=== PATIENT | male | born 1940 | race Caucasian/White ===

== ENCOUNTER 2020-03-20 15:15 | Inpatient (IN) | payer MEDICAID, SELFPAY ==
[~2020-03-20] VITALS: Ht 165.1 cm; Wt 49.9 kg
[2020-03-20] MEDS: NACL 0.9% 1,000 ML IV SCH (02:50)
--- NOTE | 2020-03-20 15:15 | NUR ---
Patient BIBA ALS, transferred to bed 7. RN evaluating patient at bedside.
--- NOTE | 2020-03-20 15:16 | NUR ---
Dr. Wei is evaluating the patient at bedside.
[2020-03-20 15:17] VITALS: BP 131/72
[2020-03-20] MEDS ORDERED: AZITHROMYCIN 1,000 MG in DEXTROSE 5% 500 ML IV ONE (15:20)
[2020-03-20] MEDS ORDERED: DEXAMETHASONE 10 MG/ML VIAL IVP ONE (15:20)
[2020-03-20] MEDS ORDERED: ZINC SULF 220 MG CAP PO ONE (15:20)
[2020-03-20 15:47] LABS: BASOPHILS % (AUTO) 0.3 % (0.0-2.0); EOSINOPHILS # (AUTO) 0.1 K/uL (0-0.4); EOSINOPHILS % (AUTO) 0.5 % (0.0-4.0); HEMATOCRIT 38.8 % (36-52); LYMPHOCYTES # (AUTO) 1.1 K/uL (2.0-11.5); LYMPHOCYTES % (AUTO) 8.8 % (20.5-51.1); MEAN CORPUSCULAR HEMOGLOBIN 28 pg (27-31); MEAN CORPUSCULAR HGB CONC 33 g/dL (33-37); MEAN CORPUSCULAR VOLUME 85.2 fL (80-94); MONOCYTES # (AUTO) 0.6 K/uL (0.8-1.0); NEUTROPHILS # (AUTO) 10.5 K/uL (1.8-7.7); NEUTROPHILS % (AUTO) 85.4 % (42.2-75.2); PLATELET COUNT (AUTO) 504 K/uL (140-450); RED BLOOD CELL COUNT(AUTO) 4.56 MIL/uL (4.20-6.10); RED CELL DISTRIBUTION WIDTH 14.6 % (11.6-13.7); WHITE BLOOD COUNT (AUTO) 12.3 K/uL (4.8-10.8)
[2020-03-20] MEDS ORDERED: cefTRIAXone 1,000 MG VIAL ONE (16:06)
[2020-03-20 16:10] LABS: ALBUMIN 2.6 g/dL (3.4-5.0); ANION GAP 16.7 (8-16); CARBON DIOXIDE 25.9 mmol/L (21-32); POTASSIUM 4.6 mmol/L (3.5-5.1); TOTAL BILIRUBIN 0.6 mg/dL (0.0-1.0)
[2020-03-20 16:18] LABS: D-DIMER > 5000 ng/ml (0-400)
[2020-03-20 16:24] LABS: RSV NEGATIVE (NEGATIVE)
[2020-03-20] MEDS ORDERED: ONDANSETRON 4 MG/2 ML VIAL IVP PRN (16:50)
[2020-03-20] MEDS ORDERED: AZITHROMYCIN 250 MG TAB PO ONE (16:50)
[2020-03-20] MEDS ORDERED: ALBUTEROL HFA MDI 90 MCG/ACTUATION 8 GM INH PRN (16:50)
[2020-03-20] MEDS ORDERED: MORPHINE SULFATE 2 MG/ML SYR IVP PRN (16:50)
[2020-03-20] MEDS ORDERED: DOCUSATE SODIUM 100 MG GELCAP PO PRN (16:50)
[2020-03-20 16:51] LABS: FIBRINOGEN 456 mg/dL (200-400); PROTHROMBIN TIME 11.3 secs (10.8-13.4)
[2020-03-20 16:53] LABS: LACTATE DEHYDROGENASE 410 U/L (85-227)
[2020-03-20 16:54] LABS: C-REACTIVE PROTEIN QUANT 12.7 mg/dL (0.0-0.9)
[2020-03-20 17:31] LABS: CHOL/HDL RATIO 2.6 (1-4.5); FREE T4 (FREE THYROXINE) 1.84 ng/dL (0.76-1.46); MAGNESIUM 2.3 mg/dL (1.8-2.4); PHOSPHORUS 4.1 mg/dL (2.5-4.9); THYROID STIMULATING HORMONE 0.27 uIU/mL (0.34-3.74)
[2020-03-20] MEDS ORDERED: AZITHROMYCIN 500 MG INJ VIAL IV ONE (18:31)
[2020-03-20 19:03] VITALS: BP 167/74
--- NOTE | 2020-03-20 19:10 | NUR ---
REPORT RECEIVED FROM NEIL MCKINLEY. TRANSFER OF CARE AT THIS TIME.
--- NOTE | 2020-03-20 20:30 | NUR ---
URINE COLLECTED AND WALKED TO LAB.
--- NOTE | 2020-03-20 20:45 | NUR ---
PT'S DIAPER CHANGED. PT HAD A BM, SOFT BROWN STOOL. PROVIDED WITH NEW SHEETS. ALL PT'S NEEDS MET AT THIS TIME. PT IN STABLE CONDITION. ALL NEEDS MET AT THIS TIME. EQUAL RISE AND FALL OF CHEST WALL. PT IN STABLE CONDITION. BED LOCKED IN LOWEST POSITION, SIDE RAILS X2.
[2020-03-20 20:54] LABS: APPEARANCE,URINE CLEAR (CLEAR); BILIRUBIN,URINE NEGATIVE (NEGATIVE); BLOOD, URINE TRACE-I (NEGATIVE); COLOR,URINE YELLOW (YELLOW); LEUKOCYTE ESTERASE ,URINE NEGATIVE (NEGATIVE); NITRITE, URINE NEGATIVE (NEGATIVE); PH,URINE 6.5 (5.0-9.0); UGLUCOSE NEGATIVE (NEGATIVE)
[2020-03-20 21:07] LABS: BARBITURATE, URINE NEGATIVE ng/ml (NEG <=200); BENZODIAZEPINE, URINE NEGATIVE ng/mL (NEG <=200); CANNABINOID, URINE NEGATIVE ng/mL (NEG <=50); COCAINE, URINE NEGATIVE ng/mL (NEG <=300); OPIATE, URINE POSITIVE ng/mL (NEG <=2000); PHENCYCLIDINE SCREEN,URINE NEGATIVE ng/mL (NEG <=25)
[2020-03-20 21:10] VITALS: BP 144/71
[2020-03-20 21:14] LABS: RBC,URINE 0-5 /HPF (0-5); WBC,URINE 0-5 /HPF (0-5)
[2020-03-20] MEDS: ZINC SULF 220 MG CAP PO SCH (21:34)
--- NOTE | 2020-03-20 22:30 | NUR ---
PT IS RESTING. EQUAL RISE AND FALL OF CHEST WALL. PT IN STABLE CONDITION. ALL NEEDS MET AT THIS TIME. EQUAL RISE AND FALL OF CHEST WALL. BED LOCKED IN LOWEST POSITION, SIDE RAILS X2.
[2020-03-21 00:45] VITALS: BP 153/75
--- NOTE | 2020-03-21 01:30 | NUR ---
PT'S DIAPER CHANGED. ONLY URINE NOTED. ALL PT'S NEEDS MET AT THIS TIME. PT IS IN STABLE CONDITION. BED LOCKED IN LOWEST POSITION, SIDE RAILS X2.
[2020-03-21] MEDS ORDERED: PIPERACILLIN/TAZOBACTAM 3.375 GM VIAL IV ONE ×2 (01:39→06:10)
[2020-03-21] MEDS: PIPERACILLIN/TAZOBACTAM 3.375 GM in DEXTROSE 5% 50 ML IV SCH ×4 (01:40→22:37)
[2020-03-21] MEDS: LORazepam 2 MG/ML VIAL IM/IVP PRN (02:14)
--- NOTE | 2020-03-21 02:25 | NUR ---
PT REPORTED FEELING ANXIOUS. PRN ATIVAN GIVEN. PT IS CURRENTLY SLEEPING. EQUAL RISE AND FALL OF CHEST WALL. SIDE RAILS X2, BED LOCKED IN LOWEST POSITION.
--- NOTE | 2020-03-21 04:16 | NUR ---
PT IS SLEEPING. EQUAL RISE AND FALL OF CHEST WALL. PT IN STABLE CONDITION. BED LOCKED IN LOWEST POSITION, SIDE RAILS X2.
[2020-03-21 05:10] VITALS: BP 123/68
--- NOTE | 2020-03-21 06:06 | NUR ---
PT IS SLEEPING. EQUAL RISE AND FALL OF CHEST WALL. PT IN STABLE CONDITION. BED LOCKED IN LOWEST POSITION, SIDE RAILS X2.
--- NOTE | 2020-03-21 07:36 | NUR ---
REPORT GIVEN TO NEIL BROWN. TRANSFER OF CARE AT THIS TIME.
--- NOTE | 2020-03-21 08:10 | NUR ---
Patient will be admitted to care of Dr Davis . Admited to tele. Will go to room 112B. Belongings list completed. Report to Norma TREJO.
--- NOTE | 2020-03-21 08:15 | NUR ---
RECEIVED REPORT FROM ER NURSE. PATIENT IS AOX2. RESPIRATIONS EVEN AND UNLABORED. ON BIPAP 100%. O2 SATURATION AT 96%. S1 AND S2 HEARD. BILATERAL PULSE 2+ ON UPPER AND LOWER EXTREMITY. SKIN IS INTACT, WARM, AND DRY. IV SITE ON LAC 22G SALINE LOCK. ABDOMEN IS FLAT AND SOFT. ACTIVE IN ALL FOUR QUADRANTS. INCONTINENT. PLAN OF CARE WAS DISCUSSED. SAFETY AND DROPLET PRECAUTIONS IN PLACE. BED IN LOW POSITION AND CALL LIGHTS WITHIN REACH. WILL CONTINUE TO MONITOR.
--- NOTE | 2020-03-21 08:25 | NUR ---
PT TAKEN TO FLOOR AT THIS TIME
[2020-03-21 08:35] VITALS: BP 136/57
--- NOTE | 2020-03-21 08:35 | NUR ---
RECEIVED PT FROM ER NURSE, PT IS ON BIPAP, ON BEDREST AND AN IV LINE NOTED ON THE LAC G. 22, ON SALINE LOCK. WILL CONTINUE TO MONITOR PT.
[2020-03-21] MEDS: ASCORBIC ACID 500 MG TAB PO SCH (09:53)
[2020-03-21] MEDS: AZITHROMYCIN 250 MG TAB PO SCH (09:53)
[2020-03-21] MEDS: ZINC SULF 220 MG CAP PO SCH ×2 (09:53→22:35)
[2020-03-21] MEDS: VITAMIN D 400 IU TAB PO SCH (09:54)
[2020-03-21] MEDS: ENOXAPARIN 40 MG/0.4 ML SYR SUBQ SCH (10:03)
--- NOTE | 2020-03-21 10:05 | NUR ---
DECADRON AND AZITHROMYCIN WERE NON-ADMINISTERED IN PT EMAR. MEDICATIONS WERE GIVEN PREVIOUS DAY IN EMAR. Addendum: 03/21/20 at 1054 by Luis Fernando Mcmahan RN RN GIVEN PREVIOUS DAY IN ER*
[2020-03-21] MEDS: NACL 0.9% 1,000 ML IV SCH ×2 (10:09→12:50)
--- NOTE | 2020-03-21 11:09 | NUR ---
SPOKE TO DR. THORPE REGARDING PATIENT STATUS. NEW ORDERS ARE REQUESTED. JUST AWAITING CODE STATUS PER MD.
[2020-03-21 12:00] VITALS: BP 154/80
--- NOTE | 2020-03-21 12:05 | NUR ---
REMOVED PATIENT FROM BIPAP TO MASK PLACED ON SUPPLEMENTAL OXYGEN AT 15 LPM VIA HIGH FLOW BUBBLE HUMIDIFIER DRYWALL STRIPPER HELPER TO MONITOR
--- NOTE | 2020-03-21 12:08 | NUR ---
TOLERATING HIGH FLOW BUBBLE HUMIDIFIER WELL WITHOUT ADVERSE REACTIONS NOTED GOOD CHEST RISE SATURATION 94% HR 96 RR 20
--- NOTE | 2020-03-21 15:30 | NUR ---
PT COMPLAINED OF WET DIAPER. CHANGED PATIENT. PATIENT IS NOW CLEAN, DRY, AND COMFORTABLE
[2020-03-21 16:00] VITALS: BP 127/70
[2020-03-21] MEDS: HYDROcodone/APAP 5/325 MG 1 TAB TAB PO PRN (17:23)
--- NOTE | 2020-03-21 17:23 | NUR ---
PT COMPLAINED OF 6/10 BODY ACHES. ADMINISTERED NORCO PO PER ORDERED. WILL CONTINUE TO MONITOR.
[2020-03-21 18:35] LABS: BASOPHILS % (AUTO) 0.5 % (0.0-2.0); HEMATOCRIT 36.8 % (36-52); HEMOGLOBIN 12.3 g/dL (12.0-18.0); LYMPHOCYTES # (AUTO) 0.2 K/uL (2.0-11.5); LYMPHOCYTES % (AUTO) 2.9 % (20.5-51.1); MEAN CORPUSCULAR HEMOGLOBIN 28 pg (27-31); MEAN CORPUSCULAR HGB CONC 33 g/dL (33-37); MEAN CORPUSCULAR VOLUME 84.6 fL (80-94); MONOCYTES # (AUTO) 0.2 K/uL (0.8-1.0); MONOCYTES % (AUTO) 1.9 % (1.7-9.3); NEUTROPHILS # (AUTO) 7.6 K/uL (1.8-7.7); NEUTROPHILS % (AUTO) 94.7 % (42.2-75.2); PLATELET COUNT (AUTO) 336 K/uL (140-450); RED BLOOD CELL COUNT(AUTO) 4.35 MIL/uL (4.20-6.10); RED CELL DISTRIBUTION WIDTH 14.9 % (11.6-13.7); WHITE BLOOD COUNT (AUTO) 8.1 K/uL (4.8-10.8)
[2020-03-21 18:52] LABS: ALBUMIN 2.3 g/dL (3.4-5.0); ANION GAP 14.5 (8-16); ASPARTATE AMINOTRANSFERASE 33 U/L (15-37); CHLORIDE 99 mmol/L (98-107); CREATININE 0.8 mg/dL (0.6-1.3); GLUCOSE 149 mg/dL (74-106); MAGNESIUM 2.3 mg/dL (1.8-2.4); POTASSIUM 4.5 mmol/L (3.5-5.1); SODIUM SERUM 136 mmol/L (136-145); TOTAL BILIRUBIN 0.5 mg/dL (0.0-1.0); UREA NITROGEN, BLOOD 29 mg/dL (7-18)
--- NOTE | 2020-03-21 19:46 | NUR ---
ENDORSED PT TO REGISTRY NURSE FOR CONTINUITY OF CARE.
[2020-03-21 20:00] VITALS: BP 151/101
[2020-03-21] MEDS: CHLORHEXADINE GLUC 2% CLOTH TP SCH (21:10)
[2020-03-21] MEDS: ZOLPIDEM 5 MG TAB PO PRN (22:35)
[2020-03-21] MEDS: MUPIROCIN CA NASAL 2% 1GM TUBE NS SCH (22:35)
[2020-03-22] VITALS: BP 156/79
[2020-03-22] MEDS: HYDROcodone/APAP 5/325 MG 1 TAB TAB PO PRN (02:11)
[2020-03-22 04:00] VITALS: BP 180/91
[2020-03-22] MEDS: PIPERACILLIN/TAZOBACTAM 3.375 GM in DEXTROSE 5% 50 ML IV SCH ×3 (04:23→22:09)
[2020-03-22] MEDS: NACL 0.9% 1,000 ML IV SCH ×3 (05:00→18:50)
--- NOTE | 2020-03-22 07:18 | NUR ---
EOS TELE NOTE [id number] HR 87 SR w BBB 03.22.2033 HR 69 SR w BBB QRS 0.12 [id number] SR QRS 0.12
[2020-03-22 08:00] VITALS: BP 162/75
--- NOTE | 2020-03-22 08:10 | NUR ---
PATIENT HAS BEEN SCREENED AND CATEGORIZED MODERATE NUTRITION RISK. PATIENT WILL BE SEEN WITHIN 3-5 DAYS OF ADMISSION. 03/23/20 03/25/[address]
[2020-03-22] MEDS ORDERED: FAMOTIDINE 20 MG TAB PO SCH (09:00)
[2020-03-22] MEDS ORDERED: FAMOTIDINE 20 MG TAB PO PRN (09:10)
[2020-03-22] MEDS: VITAMIN D 400 IU TAB PO SCH (09:15)
[2020-03-22] MEDS: ASCORBIC ACID 500 MG TAB PO SCH (09:15)
[2020-03-22] MEDS: AZITHROMYCIN 250 MG TAB PO SCH (09:16)
[2020-03-22] MEDS: ZINC SULF 220 MG CAP PO SCH ×2 (09:16→22:08)
[2020-03-22] MEDS: ENOXAPARIN 40 MG/0.4 ML SYR SUBQ SCH (09:17)
[2020-03-22 09:25] LABS: BASOPHILS % (AUTO) 0.5 % (0.0-2.0); EOSINOPHILS % (AUTO) 0.1 % (0.0-4.0); HEMATOCRIT 36.6 % (36-52); HEMOGLOBIN 12.4 g/dL (12.0-18.0); LYMPHOCYTES # (AUTO) 0.6 K/uL (2.0-11.5); LYMPHOCYTES % (AUTO) 7.3 % (20.5-51.1); MEAN CORPUSCULAR HEMOGLOBIN 29 pg (27-31); MEAN CORPUSCULAR HGB CONC 34 g/dL (33-37); MEAN CORPUSCULAR VOLUME 84.7 fL (80-94); MONOCYTES # (AUTO) 0.7 K/uL (0.8-1.0); MONOCYTES % (AUTO) 8.3 % (1.7-9.3); NEUTROPHILS # (AUTO) 7.2 K/uL (1.8-7.7); NEUTROPHILS % (AUTO) 83.8 % (42.2-75.2); PLATELET COUNT (AUTO) 381 K/uL (140-450); RED BLOOD CELL COUNT(AUTO) 4.33 MIL/uL (4.20-6.10); RED CELL DISTRIBUTION WIDTH 14.9 % (11.6-13.7); WHITE BLOOD COUNT (AUTO) 8.5 K/uL (4.8-10.8)
--- NOTE | 2020-03-22 09:25 | NUR ---
SCHEDULED MORNING MEDICATIONS GIVEN. EDUCATION PROVIDED. PATIENT TOLERATED WELL. O2 SAT 93% WITH 15L VIA NC. HR 93. SAFETY MEASURES IN PLACE, WILL CONTINUE TO MONITOR.
[2020-03-22 10:42] LABS: ALBUMIN 2.4 g/dL (3.4-5.0); ANION GAP 11.9 (8-16); ASPARTATE AMINOTRANSFERASE 32 U/L (15-37); CARBON DIOXIDE 28.3 mmol/L (21-32); CHLORIDE 101 mmol/L (98-107); GLUCOSE 96 mg/dL (74-106); MAGNESIUM 2.5 mg/dL (1.8-2.4); PHOSPHORUS 3.8 mg/dL (2.5-4.9); POTASSIUM 4.2 mmol/L (3.5-5.1); SODIUM SERUM 137 mmol/L (136-145); TOTAL BILIRUBIN 0.5 mg/dL (0.0-1.0); UREA NITROGEN, BLOOD 30 mg/dL (7-18)
[2020-03-22 12:00] VITALS: BP 165/71
[2020-03-22 12:44] LABS: LACTATE DEHYDROGENASE 247 U/L (85-227)
--- NOTE | 2020-03-22 13:50 | NUR ---
IV ZOSYN GIVEN VIA IVPB. PATIENT ASLEEP IN BED WITHIN SUPINE POSITION. RESPIRATORY EVEN AND UNLABORED. NO ACUTE DISTRESS NOTED. SAFETY MEASURES IN PLACE, WILL CONTINUE TO MONITOR.
[2020-03-22 16:00] VITALS: BP 155/69
--- NOTE | 2020-03-22 17:03 | NUR ---
SCHEDULED IV ROCEPHIN GIVEN VIA IVPB. PATIENT ASLEEP WITH NO ACUTE DISTRESS NOTED. WILL CONTINUE TO MONITOR.
--- NOTE | 2020-03-22 19:10 | NUR ---
RECEIVED BEDSIDE REPORT FROM DAY SHIFT NURSE FOR CONTINUITY OF CARE. PT IS AWAKE AND ALERT. LAYING IN SEMI FOWLERS POSITION. ON 15L O2 NC WITH HUMIDIFIER. BREATHING IS UNLABORED. PT IS ON TELE MONITORING. SKIN IS WARM, DRY, AND INTACT. IV IS IN THE LEFT AC 20 GAUGE RUNNING NS AT 100 ML PER HOUR PER ORDER. PLAN OF CARE DISCUSSED. PT IS STABLE AT THIS TIME. DROPLET PRECAUTION IN PLACE FOR COVID POSITIVE.
--- NOTE | 2020-03-22 19:30 | NUR ---
ENDORSED PATIENT TO MASTER MECHANIC RN FOR CONTINUITY OF CARE. PATIENT IN STABLE CONDITION.
[2020-03-22 20:00] VITALS: BP 187/88
--- NOTE | 2020-03-22 21:30 | NUR ---
PT WAS CHANGED AND REPOSITIONED. PT VOIDED IN DIAPER. NO DISTRESS NOTED AT THIS TIME. BREATHING IS UNLABORED. IV FLUIDS ARE PATENT AND INFUSING.
[2020-03-22] MEDS: MUPIROCIN CA NASAL 2% 1GM TUBE NS SCH (22:08)
[2020-03-22] MEDS: CHLORHEXADINE GLUC 2% CLOTH TP SCH (22:09)
--- NOTE | 2020-03-22 22:40 | NUR ---
CONTACTED DR. BLAIR TO INFORM HIM ABOUT PT'S BP OF 187/89 AND HR OF 74. I CHECKED THE PT THREE TIMES WITH SAME RESULT. WILL WAIT FOR RESPONSE BACK.
--- NOTE | 2020-03-22 23:03 | NUR ---
DR. BLAIR ORDERED CLONIDINE 0.1 MG BID PRN FOR SBP OVER 160. WILL ADMINISTER ONCE IT IS VERIFIED BY PHARMACY.
--- NOTE | 2020-03-23 00:04 | NUR ---
BP WAS 189/88 AND HR WAS 74. PT WAS GIVEN CLONIDINE PO PRN SBP OVER 160. WILL MONITOR BP.
[2020-03-23] MEDS: CLONIDINE HYDROCHLORIDE 0.1 MG TAB PO PRN ×2 (00:14→17:32)
[2020-03-23 00:30] VITALS: BP 166/96
--- NOTE | 2020-03-23 02:00 | NUR ---
PT'S BREATHING IS UNLABORED. O2 SAT IS 99% ON 15L O2 NC WITH HUMIDIFIER. PT WAS TITRATED DOWN TO 12L O2 NC. PT DOES NOT APPEAR TO BE IN ANY DISTRESS. O2 SAT IS 97%. WILL CONTINUE TO MONITOR.
[2020-03-23] MEDS: NACL 0.9% 1,000 ML IV SCH ×2 (02:13→13:07)
[2020-03-23 04:00] VITALS: BP_SYST 158; BP_SYST 180; BP_DIAS 80; BP_DIAS 81
--- NOTE | 2020-03-23 04:00 | NUR ---
ROUNDED ON PT. HE IS SLEEPING. PT VOIDED IN CHUCKS AND WAS CHANGED. NO RESPIRATORY DISTRESS NOTED. FLUIDS ARE INFUSING PER ORDER. WILL CONTINUE TO MONITOR.
[2020-03-23] MEDS: PIPERACILLIN/TAZOBACTAM 3.375 GM in DEXTROSE 5% 50 ML IV SCH ×3 (05:22→20:40)
--- NOTE | 2020-03-23 05:45 | NUR ---
ROUNDED ON PT. HE IS STABLE AT THIS TIME. RESTING IN SEMI FOWLERS POSITION. NO COMPLAINTS FROM PT. PT IS SPEAKING APPROPRIATELY. IV FLUIDS ARE INFUSING.
--- NOTE | 2020-03-23 07:44 | NUR ---
ENDORSED PT TO DAY SHIFT NURSE FOR CONTINUITY OF CARE. PT IS STABLE AT THIS TIME. NO DISTRESS NOTED.
[2020-03-23] MEDS: ASCORBIC ACID 500 MG TAB PO SCH (08:57)
[2020-03-23] MEDS: VITAMIN D 400 IU TAB PO SCH (08:58)
[2020-03-23] MEDS: ZINC SULF 220 MG CAP PO SCH ×2 (08:58→20:39)
[2020-03-23] MEDS: AZITHROMYCIN 250 MG TAB PO SCH (08:58)
[2020-03-23] MEDS: ENOXAPARIN 40 MG/0.4 ML SYR SUBQ SCH (08:58)
[2020-03-23] MEDS: DEXAMETHASONE 4 MG TAB PO SCH (09:06)
--- NOTE | 2020-03-23 09:06 | NUR ---
SCHEDULED MEDICATIONS GIVEN, EDUCATION PROVIDED. PATIENT TOLERATED WELL. PATIENT RESTING IN BED WITH NO ACUTE DISTRESS. TREMOR ON RIGHT HAND/ARM. SAFETY MEASURES IN PLACE, WILL CONTINUE TO MONITOR.
[2020-03-23 09:24] LABS: BASOPHILS % (AUTO) 0.3 % (0.0-2.0); EOSINOPHILS % (AUTO) 0.1 % (0.0-4.0); LYMPHOCYTES # (AUTO) 0.4 K/uL (2.0-11.5); LYMPHOCYTES % (AUTO) 5.3 % (20.5-51.1); MEAN CORPUSCULAR HEMOGLOBIN 28 pg (27-31); MEAN CORPUSCULAR HGB CONC 33 g/dL (33-37); MEAN CORPUSCULAR VOLUME 85.3 fL (80-94); MONOCYTES # (AUTO) 0.6 K/uL (0.8-1.0); MONOCYTES % (AUTO) 7.6 % (1.7-9.3); NEUTROPHILS # (AUTO) 6.7 K/uL (1.8-7.7); NEUTROPHILS % (AUTO) 86.7 % (42.2-75.2); PLATELET COUNT (AUTO) 351 K/uL (140-450); RED BLOOD CELL COUNT(AUTO) 4.22 MIL/uL (4.20-6.10); RED CELL DISTRIBUTION WIDTH 14.7 % (11.6-13.7); WHITE BLOOD COUNT (AUTO) 7.8 K/uL (4.8-10.8)
[2020-03-23 09:38] LABS: CARBON DIOXIDE 24.1 mmol/L (21-32); CHLORIDE 103 mmol/L (98-107); CREATININE 2.3 mg/dL (0.6-1.3); GLUCOSE 96 mg/dL (74-106); POTASSIUM 4.1 mmol/L (3.5-5.1); SODIUM SERUM 139 mmol/L (136-145); UREA NITROGEN, BLOOD 51 mg/dL (7-18)
[2020-03-23 10:02] LABS: MAGNESIUM 2.7 mg/dL (1.8-2.4); PHOSPHORUS 5.3 mg/dL (2.5-4.9)
[2020-03-23 12:00] VITALS: BP 158/81
--- NOTE | 2020-03-23 12:30 | NUR ---
IV ZOSYN ADMINISTERED VIA IVPB. EDUCATION PROVIDED, PATIENT TOLERATED WELL, NO REACTION NOTED. NO ACUTE DISTRESS NOTED. WILL CONTINUE TO MONITOR.
--- NOTE | 2020-03-23 13:08 | NUR ---
HUNG NEW BAG OF IVF, PATIENT ASLEEP IN BED WITH SUPINE POSITION. NO ACUTE DISTRESS NOTED. SAFETY MEASURES IN PLACE, WILL CONTINUE TO MONITOR.
[2020-03-23 16:00] VITALS: BP 164/82
--- NOTE | 2020-03-23 16:51 | NUR ---
SCHEDULED IV ROCEPHIN GIVEN, EDUCATION PROVIDED. PATIENT TOLERATED WELL. NO ACUTE DISTRESS NOTED. WILL CONTINUE TO MONITOR.
--- NOTE | 2020-03-23 19:25 | NUR ---
ENDORSED PATIENT TO PAN GREASER RN FOR CONTINUITY OF CARE. PATIENT IN STABLE CONDITION. O2 SAT 98% WITH 10L NC.
--- NOTE | 2020-03-23 19:26 | NUR ---
RECEIVED REPORT FROM DAY SHIFT NURSE. PT IN BED RESTING WITH HOB ELEVATED. PT AAOX3-4, ABLE TO MAKE NEEDS KNOWN. PT ON O2 10LPM/NC. PT NOT IN DISTRESS. ABDOMEN IS SOFT AND NON-TENDER, ACTIVE BOWEL SOUNDS NOTED. SKIN IS WARM, DRY, AND INTACT. PT WITH IV ACCESS ON LEFT AC G20 IN PLACE, PATENT AND INTACT, IVF INFUSING WELL. NO REQUESTS MADE AT THIS TIME. PT DENIES ANY PAIN OR DISCOMFORT. SAFETY MEASURES IN PLACE. CALL LIGHT WITHIN REACH. WILL CONTINUE TO MONITOR.
[2020-03-23 20:00] VITALS: BP 163/80
[2020-03-23] MEDS: CHLORHEXADINE GLUC 2% CLOTH TP SCH (20:39)
[2020-03-23] MEDS: MUPIROCIN CA NASAL 2% 1GM TUBE NS SCH (20:39)
--- NOTE | 2020-03-23 20:40 | NUR ---
VS STABLE. SCHEDULED MEDS GIVEN. O2 IN PLACE. PT NOT IN DISTRESS. PT KEPT COMFORTABLE. SAFETY MEASURES IN PLACE. CALL LIGHT WITHIN REACH. WILL CONTINUE TO MONITOR.
--- NOTE | 2020-03-23 22:19 | NUR ---
ROUNDS MADE. ASLEEP WITH HOB ELEVATED. PT NOT IN DISTRESS, O2 IN PLACE. PT KEPT COMFORTABLE. SAFETY MEASURES IN PLACE. CALL LIGHT WITHIN REACH, WIKK CONTINUE TO MONITOR.
[2020-03-24] VITALS: BP 143/71
--- NOTE | 2020-03-24 00:01 | NUR ---
VS STABLE. PT IN BED RESTING. PT DENIES ANY PAIN OR DISCOMFORT. NO REQUESTS MADE. PT KEPT COMFORTABLE. CALL LIGHT WITHIN REACH. WILL CONTINUE TO MONITOR.
[2020-03-24] MEDS: NACL 0.9% 1,000 ML IV SCH ×2 (01:39→14:15)
--- NOTE | 2020-03-24 02:16 | NUR ---
PT ASSESSED FOR PRN TX NO WHEEZING OR DISTRESS NOTED
--- NOTE | 2020-03-24 02:17 | NUR ---
ASLEEP. VISIBLE CHEST RISE AND FALL NOTED. O2 IN PLACE. NO S/SX OF DISTRESS NOTED. CURRENT O2 SAT 98%. PT KEPT COMFORTABLE. CALL LIGHT WITHIN REACH, SAFETY MEASURES IN PLACE. WILL CONTINUE TO MONITOR.
[2020-03-24 04:00] VITALS: BP 153/86
[2020-03-24] MEDS: PIPERACILLIN/TAZOBACTAM 3.375 GM in DEXTROSE 5% 50 ML IV SCH ×3 (04:29→21:06)
--- NOTE | 2020-03-24 04:42 | NUR ---
VS STABLE. PERINEAL CARE DONE. PT TOLERATED CARE WELL. PT TURNED TO SIDE. SAFETY MEASURES IN PLACE. WILL CONTINUE TO MONITOR.
--- NOTE | 2020-03-24 07:20 | NUR ---
RECEIVED REPORT FROM ASSURANCE SENIOR RN FOR CONTINUITY OF CARE. PATIENT RESTING IN BED WITH SUPINE POSITION. RESPIRATORY EVEN AND UNLABORED WITH 9L VIA NC. SKIN WARM AND DRY. IV SITE LEFT AC 20G INFUSING NS@ 100ML/HR. INCONTINENT WITH BLADDER AND BOWEL. NO ACUTE DISTRESS NOTED, SAFETY MEASURES IN PLACE, WILL CONTINUE TO MONITOR.
--- NOTE | 2020-03-24 07:34 | NUR ---
endorsed to day shift nurse for continuity of care
[2020-03-24 07:35] LABS: BASOPHILS # (AUTO) 0.1 K/uL (0.00-0.22); EOSINOPHILS % (AUTO) 0.1 % (0.0-4.0); HEMOGLOBIN 10.9 g/dL (12.0-18.0); LYMPHOCYTES # (AUTO) 0.4 K/uL (2.0-11.5); LYMPHOCYTES % (AUTO) 5.4 % (20.5-51.1); MEAN CORPUSCULAR HEMOGLOBIN 29 pg (27-31); MEAN CORPUSCULAR HGB CONC 34 g/dL (33-37); MEAN CORPUSCULAR VOLUME 84.6 fL (80-94); MONOCYTES # (AUTO) 0.6 K/uL (0.8-1.0); MONOCYTES % (AUTO) 9.4 % (1.7-9.3); NEUTROPHILS # (AUTO) 5.8 K/uL (1.8-7.7); NEUTROPHILS % (AUTO) 84.1 % (42.2-75.2); PLATELET COUNT (AUTO) 277 K/uL (140-450); RED BLOOD CELL COUNT(AUTO) 3.78 MIL/uL (4.20-6.10); RED CELL DISTRIBUTION WIDTH 14.7 % (11.6-13.7); WHITE BLOOD COUNT (AUTO) 6.9 K/uL (4.8-10.8)
[2020-03-24 07:56] LABS: MAGNESIUM 2.7 mg/dL (1.8-2.4); PHOSPHORUS 6.9 mg/dL (2.5-4.9)
[2020-03-24 08:00] VITALS: BP 170/68
[2020-03-24] MEDS: VITAMIN D 400 IU TAB PO SCH (08:43)
[2020-03-24] MEDS: DEXAMETHASONE 4 MG TAB PO SCH (08:43)
[2020-03-24] MEDS: ASCORBIC ACID 500 MG TAB PO SCH (08:43)
[2020-03-24] MEDS: AZITHROMYCIN 250 MG TAB PO SCH (08:44)
[2020-03-24] MEDS: ZINC SULF 220 MG CAP PO SCH ×2 (08:44→21:09)
[2020-03-24] MEDS: ENOXAPARIN 40 MG/0.4 ML SYR SUBQ SCH (08:45)
--- NOTE | 2020-03-24 08:51 | NUR ---
SCHEDULED MEDICATIONS GIVEN. EDUCATION PROVIDED. PATIENT TOLERATED WELL. SAFETY MEASURES IN PLACE, WILL CONTINUE TO MONITOR.
--- NOTE | 2020-03-24 11:03 | NUR ---
PATIENT RESTING IN BED WITH NO ACUTE DISTRESS NOTED. O2 SAT 96% WITH 8L NC. SAFETY MEASURES IN PLACE, WILL CONTINUE TO MONITOR.
[2020-03-24 12:00] VITALS: BP 166/76
[2020-03-24 12:21] LABS: ANION GAP 22.5 (8-16); CHLORIDE 105 mmol/L (98-107); GLUCOSE 98 mg/dL (74-106); POTASSIUM 4.5 mmol/L (3.5-5.1); SODIUM SERUM 140 mmol/L (136-145)
[2020-03-24 12:23] LABS: UREA NITROGEN, BLOOD 77 mg/dL (7-18)
[2020-03-24 12:24] LABS: CREATININE 4.1 mg/dL (0.6-1.3)
--- NOTE | 2020-03-24 14:06 | NUR ---
IV ZOSYN GIVEN VIA IVPB. EDUCATION PROVIDED. SAFETY MEASURES IN PLACE, NO ACUTE DISTRESS NOTED. WILL CONTINUE TO MONITOR.
[2020-03-24 16:00] VITALS: BP 191/70
[2020-03-24] MEDS: hydrALAZINE 20 MG/ML VIAL IVP PRN (17:30)
--- NOTE | 2020-03-24 17:30 | NUR ---
HYDRALAZINE GIVEN FOR BP 191/70, ROCEPHIN GIVEN VIA IVPB. EDUCATION PROVIDED, PATIENT TOLERATED WELL. O2 SAT 96% WITH 8L NC. SAFETY MEASURES IN PLACE, WILL CONTINUE TO MONITOR.
--- NOTE | 2020-03-24 18:38 | NUR ---
RECHECKED BP 152/68, HR 83. O2 SAT 94% WITH 8L NC. SAFETY MEASURES IN PLACE, WILL CONTINUE TO MONITOR.
--- NOTE | 2020-03-24 19:22 | NUR ---
ENDORSED PATIENT TO ACADEMIC SUCCESS COORDINATOR RN FOR CONTINUITY OF CARE. PATIENT IN STABLE CONDITION.
--- NOTE | 2020-03-24 19:23 | NUR ---
RECEIVED REPORT FROM JORGE L RNPITO. PT AOX3 ON 8L NC WITH HUMIDIFIER. NO S/S RESPIRATORY DISTRESS. NO C/O PAIN AT THIS TIME. HAS TREMORS TO BUE. IV SITE LAC 22G INTACT PATENT INFUSING IVF ORDERED. SAFETY MEASURES IN PLACE, CALL LIGHT WITHIN REACH. WILL CONTINUE TO MONITOR.
[2020-03-24 20:00] VITALS: BP 154/73
[2020-03-24] MEDS: NACL 0.45% 1,000 ML IV SCH (21:06)
[2020-03-24] MEDS: MUPIROCIN CA NASAL 2% 1GM TUBE NS SCH (21:09)
--- NOTE | 2020-03-24 21:10 | NUR ---
ADMINISTERED SCHEDULED MEDS. TOLERATED WELL. WILL CONTINUE TO MONITOR
[2020-03-24] MEDS: CHLORHEXADINE GLUC 2% CLOTH TP SCH (21:19)
[2020-03-25] VITALS: BP 163/88
[2020-03-25] MEDS: CLONIDINE HYDROCHLORIDE 0.1 MG TAB PO PRN (00:31)
[2020-03-25] MEDS: ZOLPIDEM 5 MG TAB PO PRN (00:31)
--- NOTE | 2020-03-25 00:36 | NUR ---
PRN CATAPRES GIVEN FOR BP 163/80. TOLERATED WELL. NO DISTRESS NOTED. WILL CONTINUE TO MONITOR
--- NOTE | 2020-03-25 02:15 | NUR ---
PATIENT RESTING IN BED WITH NO ACUTE DISTRESS NOTED. SAFETY MEASURES IN PLACE, WILL CONTINUE TO MONITOR.
[2020-03-25 04:00] VITALS: BP 166/70
[2020-03-25] MEDS: PIPERACILLIN/TAZOBACTAM 3.375 GM in DEXTROSE 5% 50 ML IV SCH ×3 (04:02→21:08)
[2020-03-25] MEDS: hydrALAZINE 20 MG/ML VIAL IVP PRN ×2 (06:04→18:21)
--- NOTE | 2020-03-25 06:04 | NUR ---
PRN APRESOLINE GIVEN FOR PT BP 166/70, TOLERATED WELL. WILL CONTINUE TO MONITOR
--- NOTE | 2020-03-25 07:15 | NUR ---
ENDORSED PT TO DAY RN FOR CONTINUITY OF CARE. PT IS IN STABLE CONDITION
--- NOTE | 2020-03-25 07:16 | NUR ---
RECEIVED PATIENT FROM NIGHT NURSE. PATIENT IN BED AWAKE AND ALERT. TREMORS NOTED TO UPPER EXTREMITIES. RESP EVEN AND UNLABORED ON HUMIDIFIED 8L NC. LAC 22G INFUSING NS 75 ML/HR. NO ACUTE S/S DISTRESS AT THIS TIME. HOB ELEVATED. SAFETY MEASURES IN PLACE. CALL LIGHT WITHIN REACH. WILL CONTINUE TO MONITOR.
[2020-03-25] MEDS: NACL 0.45% 1,000 ML IV SCH ×2 (07:55→21:15)
[2020-03-25 08:00] VITALS: BP 156/82
[2020-03-25] MEDS: ENOXAPARIN 40 MG/0.4 ML SYR SUBQ SCH (08:38)
[2020-03-25] MEDS: ASCORBIC ACID 500 MG TAB PO SCH (08:39)
[2020-03-25] MEDS: VITAMIN D 400 IU TAB PO SCH (08:39)
[2020-03-25] MEDS: AZITHROMYCIN 250 MG TAB PO SCH (08:40)
[2020-03-25] MEDS: DEXAMETHASONE 4 MG TAB PO SCH (08:40)
[2020-03-25] MEDS: ZINC SULF 220 MG CAP PO SCH ×2 (08:40→21:04)
--- NOTE | 2020-03-25 08:45 | NUR ---
PATIENT IN BED AWAKE AND ALERT. RESP EVEN AND UNLABORED ON HUMIDIFIED 8L NC. NO ACUTE S/S DISTRESS. PATIENT ABLE TO MAKE NEEDS KNOWN AND FOLLOW COMMANDS. LAC 22G INTACT AND PATENT INFUSING NS 75 ML/HR. PLAN OF CARE DISCUSSED, PATIENT VERBALIZED UNDERSTANDING. HOB ELEVATED. SAFETY MEASURES IN PLACE. CALL LIGHT WITHIN REACH. WILL CONTINUE TO MONITOR.
--- NOTE | 2020-03-25 11:25 | NUR ---
PATIENT IN BED AWAKE AND ALERT. RESP EVEN AND UNLABORED. NO ACUTE S/S DISTRESS. CALL LIGHT WITHIN REACH. WILL CONTINUE TO MONITOR.
[2020-03-25 12:00] VITALS: BP 159/74
--- NOTE | 2020-03-25 14:11 | NUR ---
PATIENT WATCHING TV. RESP EVEN AND UNLABORED ON HUMIDIFIED 8L NC, O2SAT 94%. NO ACUTE S/S DISTRESS. CALL LIGHT WITHIN REACH. WILL CONTINUE TO MONITOR.
[2020-03-25 16:00] VITALS: BP 157/89
--- NOTE | 2020-03-25 18:27 | NUR ---
HYDRALAZINE GIVEN FOR BP 177/15 HR 84. PATIENT IN BED WITH TREMORS TO UPPER ARMS. ENCOURAGED TO DEEP BREATH. PATIENT ABLE TO FOLLOW COMMANDS. NO ACUTE S/S DISTRESS. CALL LIGHT WITHIN REACH. WILL CONTINUE TO MONITOR.
--- NOTE | 2020-03-25 18:59 | NUR ---
BP 150/61 HR 81. PATIENT IN BED COMFORTABLE. CALL LIGHT WITHIN REACH. WILL CONTINUE TO MONITOR
--- NOTE | 2020-03-25 19:20 | NUR ---
PT ENDORSED BY MORNING NURSE, JAMIR. PT IS CURRENTLY AWAKE AND ALERT IN BED. DENIES PAIN. ASKED TO BE REPOSITIONED. TURNED PT ON HIS LEFT SIDE
--- NOTE | 2020-03-25 19:25 | NUR ---
ENDORSED PATIENT TO NIGHT NURSE. PATIENT IN STABLE CONDITION. ENDORSE ZESTRIL TO NIGHT NURSE.
[2020-03-25 20:00] VITALS: BP 158/70
--- NOTE | 2020-03-25 20:54 | NUR ---
PT IS WATHCING TV. SWALLOWED MEDS WITHOUT ISSUE. PT STATES THAT HE IS COLD, NURSE GAVE HIM ANOTHER BLANKET. BREATHING IS NORMAL AND UNLABORED. DENEIS SHORTNESS OF BREATH, CHEST PAIN.
[2020-03-25] MEDS: lisinopriL 20 MG TAB PO SCH (21:05)
[2020-03-25] MEDS: MUPIROCIN CA NASAL 2% 1GM TUBE NS SCH (21:06)
[2020-03-25] MEDS: CHLORHEXADINE GLUC 2% CLOTH TP SCH (21:10)
[2020-03-25] MEDS ORDERED: CRUSHER, PILL MC ONE (21:21)
--- NOTE | 2020-03-25 21:49 | NUR ---
03/25/2020 RD INITIAL ASSESSMENT COMPLETED PLEASE REFER TO NUTRITION ASSESSMENT UNDER CARE ACTIVITY FOR ESTIMATED NUTRITIONAL NEEDS. CONTINUE CURRENT DIET ORDERED ENSURE BID FOR ADDITIONAL KCALS/PRO RD TO FOLLOW-UP IN 2-3 DAYS PATIENT IS HIGH RISK. ISAMAR GUPTA, RD
--- NOTE | 2020-03-25 23:05 | NUR ---
PT IS ASLEEP. IV PUMP NOT ALARMING. PT NOT IN PAIN. BED IS IN LOW POSITION. CALL LIGHT WITHIN REACH. PT STABLE AT THIS TIME. WILL CONTINUE TO MONITOR
[2020-03-26] MEDS: HYDROcodone/APAP 5/325 MG 1 TAB TAB PO PRN (00:25)
--- NOTE | 2020-03-26 00:25 | NUR ---
PT COMPLAINING OF PAIN 10/10 ALL OVER HIS BODY. STATED "MY PAIN IS ALWAYS THERE. NOTHING MAKES IT GO AWAY UNLESS I TAKE MEDICINE." NURSE ADMINISTERED PRN NORCO 5. WILOL REASSES PAIN IN 30 MIN`
--- NOTE | 2020-03-26 00:47 | NUR ---
PT PAIN IS REDUCED. PAIN STATES THAT THEIR PAIN IS NOW A 3/10. PT IS WATHCING TV. STATES THAT HE FEELS TIRED AND SLEEPY. VS STABLE. PT IS STABLE AT THIS TIME.
--- NOTE | 2020-03-26 02:42 | NUR ---
PT REPOSITIONED TO PREVENT ULCER FORMATION. IV PUMP NOT ALARMING. PT DENIES PAIN. BED IS IN LOW POSITION. CALL LIGHT WITHIN REACH. PT STABLE AT THIS TIME. WILL CONTINUE TO MONITOR
[2020-03-26 04:00] VITALS: BP 174/79
--- NOTE | 2020-03-26 04:20 | NUR ---
PT IS ASLEEP. BREATHING IS NORMAL AND UNLABORED.IV PUMP NOT ALARMING. PT NOT IN PAIN. BED IS IN LOW POSITION. CALL LIGHT WITHIN REACH. PT STABLE AT THIS TIME. WILL CONTINUE TO MONITOR
[2020-03-26] MEDS: PIPERACILLIN/TAZOBACTAM 3.375 GM in DEXTROSE 5% 50 ML IV SCH ×3 (05:50→21:20)
--- NOTE | 2020-03-26 06:08 | NUR ---
PT BP HIGH. 174/79. HYDRALAZINE 10MG IVP ADMISNISTERED. BP WILL B E RECHECKED IN 30 MIN. PT DENIES CHEST PAIN, SOB, HEADACHE, DISCOMFORT.IV PUMP NOT ALARMING. PT NOT IN PAIN. BED IS IN LOW POSITION. CALL LIGHT WITHIN REACH. PT STABLE AT THIS TIME. WILL CONTINUE TO MONITOR
--- NOTE | 2020-03-26 07:45 | NUR ---
REC'D REPORT FROM SUPPLY TECHNICIAN NURSE, PT STABLE ON 86 HUMIDIFIED NC, PT DISPLAYS SIGNS OF PARKINSONISM, R. HAND TREMORS CONTINOUSLY. TELUGU SPEAKING
[2020-03-26 08:00] VITALS: BP 141/84
--- NOTE | 2020-03-26 08:30 | NUR ---
OBTAINED PT VITAL SIGNS, PT HAD BOWEL MOVEMENT, CHANGED ABSORBENT PAD. PT TOLERATED PROCEDURE WELL
--- NOTE | 2020-03-26 09:00 | NUR ---
ATTEMPTED TO ASSIST PT WITH FEEDING, REFUSED FOOD, ONLY SUPPLEMENT SHAKE, STATES DOES NOT WISH TO EAT AT THIS TIME
[2020-03-26] MEDS: DEXAMETHASONE 4 MG TAB PO SCH (09:40)
[2020-03-26] MEDS: ZINC SULF 220 MG CAP PO SCH ×2 (09:40→21:20)
[2020-03-26] MEDS: lisinopriL 20 MG TAB PO SCH (09:40)
[2020-03-26] MEDS: VITAMIN D 400 IU TAB PO SCH (09:40)
[2020-03-26] MEDS: ASCORBIC ACID 500 MG TAB PO SCH (09:41)
[2020-03-26] MEDS: ENOXAPARIN 40 MG/0.4 ML SYR SUBQ SCH (09:42)
--- NOTE | 2020-03-26 09:45 | NUR ---
ADMINISTERED MEDICATIONS PER MD ORDER, PT ABLE TO SWALLOW PILLS WITHOUT COMPLICATIONS. ASSIST WITH DRINK. P T TOLERATED PROCEDURE WELL
[2020-03-26] MEDS: NACL 0.45% 1,000 ML IV SCH (10:35)
--- NOTE | 2020-03-26 11:41 | NUR ---
SPOKE TO MEDI-ARLINE LIASON, WILL BE STOPPING BY TO INTERVIEW PT FOR MEDI-ARLINE ELIGIBILITY, WAS REFERRED BY OUR CRYPTOGRAPHY TEACHER. INFORMED HER PT IS TURKMEN SPEAKING, SHE WILL ATTEMPT TO ARRANGE FOR TURKMEN SPEAKING INTERVIEWER.
[2020-03-26 12:00] VITALS: BP 152/73
[2020-03-26] MEDS ORDERED: lisinopriL 20 MG TAB PO SCH (13:00)
--- NOTE | 2020-03-26 13:15 | NUR ---
ADMINISTERED IV ABX PER MD ORDER, IV SITE FLUSHED WELL, PATENT. PT TOLERATED PROCEDURE WELL, PT HAD BOWEL MOVEMENT, CLEANED UP BED.
[2020-03-26 16:00] VITALS: BP 161/84
--- NOTE | 2020-03-26 16:40 | NUR ---
PT RESTING, HAD BM, CHANGED BEDDING, PT STILL REFUSING FOOD,
--- NOTE | 2020-03-26 19:30 | NUR ---
RECEIVED PT ON BED, AAOX3, ABLE TO MAKE NEEDS KNOWN, NO RESP DISTRESS NOTED, SAT93% ON 8L HUMIDIFIED O2 VIA NASAL CANNULA, MAINTAINED ON CONTACT ISOLATION FOR COVID POSITIVE,SAFETY MEASURES IN PLACE, CALL LIGHT WITHIN REACH.
--- NOTE | 2020-03-26 19:45 | NUR ---
ENDORSED TO COUNT TEAM CLERK NURSE, PT STABLE, ON 8L NC HUMIDIFIED,
[2020-03-26 20:00] VITALS: BP 156/61
[2020-03-26] MEDS: METOPROLOL 25 MG TAB PO SCH (21:19)
--- NOTE | 2020-03-26 21:20 | NUR ---
DUE MEDS ADMINISTERED, TOLERATED WELL, INCONTINENT OF URINE, PERINEAL CARE DONE, ALL NEEDS ATTENDED.
[2020-03-27] MEDS: NACL 0.45% 1,000 ML IV SCH ×2 (00:53→13:15)
[2020-03-27 04:00] VITALS: BP 145/69
--- NOTE | 2020-03-27 04:30 | NUR ---
PT AWAKE, HAD LOOSE BM, PERINEAL CARE DONE, MONITORED CLOSELY.
[2020-03-27] MEDS: PIPERACILLIN/TAZOBACTAM 3.375 GM in DEXTROSE 5% 50 ML IV SCH ×3 (04:34→21:08)
[2020-03-27] MEDS: HYDROcodone/APAP 5/325 MG 1 TAB TAB PO PRN (05:16)
--- NOTE | 2020-03-27 07:23 | NUR ---
PT SLEEPING, NO SIGNS OF DISTRESS, REPORT GIVEN TO NEIL FRASER FOR CONTINUITY OF CARE.
--- NOTE | 2020-03-27 07:25 | NUR ---
RECEIVED PATIENT FROM NIGHT NURSE. PATIENT IN BED SLEEPING. NO NOTED ACUTE S/S DISTRESS. RESP EVEN AND UNLABORED ON HUMIDIFIED 8L NC. DROPLET PRECAUTION OBSERVED. LAC 22G, SL. HOB ELEVATED. SAFETY MEASURES IN PLACE. CALL LIGHT WITHIN REACH. WILL CONTINUE TO MONITOR.
[2020-03-27 08:07] LABS: BASOPHILS % (AUTO) 0.3 % (0.0-2.0); HEMATOCRIT 35.9 % (36-52); HEMOGLOBIN 11.8 g/dL (12.0-18.0); LYMPHOCYTES # (AUTO) 0.4 K/uL (2.0-11.5); LYMPHOCYTES % (AUTO) 2.9 % (20.5-51.1); MEAN CORPUSCULAR HEMOGLOBIN 28 pg (27-31); MEAN CORPUSCULAR HGB CONC 33 g/dL (33-37); MEAN CORPUSCULAR VOLUME 85.9 fL (80-94); MONOCYTES # (AUTO) 0.7 K/uL (0.8-1.0); MONOCYTES % (AUTO) 5.6 % (1.7-9.3); NEUTROPHILS # (AUTO) 11.7 K/uL (1.8-7.7); NEUTROPHILS % (AUTO) 91.2 % (42.2-75.2); PLATELET COUNT (AUTO) 275 K/uL (140-450); RED BLOOD CELL COUNT(AUTO) 4.18 MIL/uL (4.20-6.10); RED CELL DISTRIBUTION WIDTH 15.5 % (11.6-13.7); WHITE BLOOD COUNT (AUTO) 12.8 K/uL (4.8-10.8)
[2020-03-27 08:29] LABS: ANION GAP 26.3 (8-16); CHLORIDE 98 mmol/L (98-107); GLUCOSE 86 mg/dL (74-106); SODIUM SERUM 135 mmol/L (136-145)
[2020-03-27] MEDS: ENOXAPARIN 40 MG/0.4 ML SYR SUBQ SCH (08:46)
[2020-03-27] MEDS: DEXAMETHASONE 4 MG TAB PO SCH (08:47)
[2020-03-27] MEDS: ASCORBIC ACID 500 MG TAB PO SCH (08:47)
[2020-03-27] MEDS: VITAMIN D 400 IU TAB PO SCH (08:47)
[2020-03-27] MEDS: METOPROLOL 25 MG TAB PO SCH ×2 (08:48→21:08)
[2020-03-27] MEDS: ZINC SULF 220 MG CAP PO SCH ×2 (08:48→21:08)
[2020-03-27] MEDS ORDERED: lisinopriL 20 MG TAB PO SCH (09:00)
[2020-03-27 09:13] LABS: UREA NITROGEN, BLOOD 131 mg/dL (7-18)
[2020-03-27 09:14] LABS: CREATININE 7.8 mg/dL (0.6-1.3)
[2020-03-27 09:15] LABS: POTASSIUM 5.3 mmol/L (3.5-5.1)
--- NOTE | 2020-03-27 09:57 | NUR ---
MORNING ROUTINE MEDIATIONS GIVEN. PATIENT TOLERATED WELL. FLUIDS GIVEN. PATIENT IN BED AWAKE AND ALERT. RESP EVEN AND UNLABORED ON HUMIDIFIED 8L NC. LAC 22G INFUSING 1/2 NS 75ML/HR. SKIN WARM TO TOUCH AND INTACT. HOB ELEVATED. CALL LIGHT WITHIN REACH. WILL CONTINUE TO MONITOR.
[2020-03-27] MEDS ORDERED: NACL 0.9% 2,000 ML IV SCH (10:00)
--- NOTE | 2020-03-27 10:51 | NUR ---
DR JAMISON IN HOUSE MADE AWARE OF BUN 131 AND CREAT 7.8. RECEIVED ORDER FOR NS 2000ML BOLUS X1 NOW. CONSULT WITH DR HENNING FOR HIGH BUN/CREAT. ORDER CARRIED OUT. PATIENT IN BED AWAKE AND ALERT. NO NOTED DISTRESS AT THIS TIME. ABLE TO MAKE NEEDS KNOWN. CALL LIGHT WITHIN REACH. WILL CONTINUE TO MONITOR.
[2020-03-27] MEDS: LORazepam 2 MG/ML VIAL IM/IVP PRN (12:42)
--- NOTE | 2020-03-27 12:50 | NUR ---
ATIVAN GIVEN FOR RESTLESS. PATIENT ABLE TO MAKE NEEDS KNOWN. PATIENT ASSISTED WITH LUNCH TRAY. TOLERATED WELL. FLUIDS GIVEN. NO NOTED ACUTE S/S DISTRESS AT THIS TIME. CALL LIGHT WITHIN REACH. WILL CONTINUE TO MONITOR.
[2020-03-27] MEDS: hydrALAZINE 10 MG TAB PO SCH ×2 (14:21→16:08)
--- NOTE | 2020-03-27 14:49 | NUR ---
PATIENT IN BED SLEEPING, CHEST NOTED RISING. NO ACUTE S/S DISTRESS. CALL LIGHT WITHIN REACH. WILL CONTINUE TO MONITOR.
--- NOTE | 2020-03-27 15:35 | NUR ---
JOB ORDER CLERK SERVICE FOR DR HENNING MADE. AWAITING FOR DR GERALD CAN TO CALL BACK REGARDS PATIENT BUN/CREAT.
[2020-03-27 16:00] VITALS: BP 138/79
--- NOTE | 2020-03-27 17:25 | NUR ---
PATIENT IN BED SLEEPING. CHEST NOTED RISING. NO ACUTE S/S DISTRESS. CALL LIGHT WITHIN REACH. WILL CONTINUE TO MONITOR.
--- NOTE | 2020-03-27 19:25 | NUR ---
ENDORSED PATIENT TO NIGHT NURSE. PATIENT IN STABLE CONDITION.
--- NOTE | 2020-03-27 19:31 | NUR ---
RECEIVED REPORT FROM JORGE L RFASER. PT AOX3 ON 8L N/C WITH HUMIDIFIER. NO S/S RESPIRATORY DISTRESS. NO C/O PAIN AT THIS TIME. IV SITE LAC 22G PATENT INTACT INFUSING IVF ORDERED. SAFETY MEASURES IN PLACE. CALL LIGHT WITHIN REACH. WILL CONTINUE TO MONITOR
[2020-03-27 20:00] VITALS: BP 195/71
[2020-03-27] MEDS: hydrALAZINE 20 MG/ML VIAL IVP PRN (20:23)
--- NOTE | 2020-03-27 20:23 | NUR ---
PRN APRESOLINE GIVEN FOR PT BP 195/71 HR 97, TOLERATED WELL. WILL CONTINUE TO MONITOR
--- NOTE | 2020-03-27 21:10 | NUR ---
ADMINISTERED SCHEDULED MEDS, PT TOLERATED WELL. WILL CONTINUE TO MONITOR
--- NOTE | 2020-03-27 22:07 | NUR ---
REASSESSED, PT BP 158/92 HR 77. NO DISTRESS NOTED. WILL CONTINUE TO MONITOR
--- NOTE | 2020-03-28 01:33 | NUR ---
PATIENT ASLEEP IN BED WITH NO ACUTE DISTRESS NOTED. SAFETY MEASURES IN PLACE, WILL CONTINUE TO MONITOR.
[2020-03-28] MEDS: LORazepam 2 MG/ML VIAL IM/IVP PRN (01:46)
[2020-03-28] MEDS: NACL 0.45% 1,000 ML IV SCH ×2 (02:35→19:52)
[2020-03-28 04:00] VITALS: BP 185/65
[2020-03-28] MEDS: PIPERACILLIN/TAZOBACTAM 3.375 GM in DEXTROSE 5% 50 ML IV SCH ×2 (04:45→13:42)
[2020-03-28] MEDS: hydrALAZINE 20 MG/ML VIAL IVP PRN (04:52)
--- NOTE | 2020-03-28 07:20 | NUR ---
ENDORSED PT TO DAY RN FOR CONTINUITY OF CARE. PT IS IN STABLE CONDITION
--- NOTE | 2020-03-28 07:21 | NUR ---
RECEIVED REPORT FROM NIGHT NURSE FOR CONTINUITY OF CARE. PT ASLEEP. PT HAS LAC 22G INFUSING 1/2NS AT 75. PT ON 8L NC. SAFETY MEASURES IN PLACE. WILL CONTINUE TO MONITOR
[2020-03-28 07:33] LABS: ANION GAP 31.3 (8-16); CHLORIDE 98 mmol/L (98-107); GLUCOSE 85 mg/dL (74-106); POTASSIUM 5.1 mmol/L (3.5-5.1); SODIUM SERUM 133 mmol/L (136-145)
[2020-03-28 07:34] LABS: EOSINOPHILS % (AUTO) 0.1 % (0.0-4.0); HEMATOCRIT 35.2 % (36-52); HEMOGLOBIN 11.5 g/dL (12.0-18.0); LYMPHOCYTES # (AUTO) 0.4 K/uL (2.0-11.5); LYMPHOCYTES % (AUTO) 2.5 % (20.5-51.1); MEAN CORPUSCULAR HEMOGLOBIN 28 pg (27-31); MEAN CORPUSCULAR HGB CONC 33 g/dL (33-37); MEAN CORPUSCULAR VOLUME 84.9 fL (80-94); MONOCYTES # (AUTO) 0.9 K/uL (0.8-1.0); MONOCYTES % (AUTO) 5.5 % (1.7-9.3); NEUTROPHILS # (AUTO) 14.3 K/uL (1.8-7.7); NEUTROPHILS % (AUTO) 91.9 % (42.2-75.2); PLATELET COUNT (AUTO) 254 K/uL (140-450); RED BLOOD CELL COUNT(AUTO) 4.15 MIL/uL (4.20-6.10); RED CELL DISTRIBUTION WIDTH 15.8 % (11.6-13.7); WHITE BLOOD COUNT (AUTO) 15.6 K/uL (4.8-10.8)
[2020-03-28 08:00] VITALS: BP 161/57
[2020-03-28] MEDS: ENOXAPARIN 40 MG/0.4 ML SYR SUBQ SCH (09:10)
[2020-03-28] MEDS: VITAMIN D 400 IU TAB PO SCH (09:11)
[2020-03-28] MEDS: METOPROLOL 25 MG TAB PO SCH (09:11)
[2020-03-28] MEDS: hydrALAZINE 10 MG TAB PO SCH ×2 (09:12→16:43)
[2020-03-28] MEDS: ZINC SULF 220 MG CAP PO SCH ×2 (09:12→20:23)
[2020-03-28] MEDS: ASCORBIC ACID 500 MG TAB PO SCH (09:12)
[2020-03-28] MEDS: DEXAMETHASONE 4 MG TAB PO SCH (09:12)
--- NOTE | 2020-03-28 09:22 | NUR ---
ADMINISTERED SCHEDULED MEDICATION, MEDICATION EDUCATION PROVIDED. PT TOLERATED WELL. PT IS STABLE, WILL CONTINUE TO MONITOR.
[2020-03-28 11:06] LABS: CARBON DIOXIDE 8.8 mmol/L (21-32); UREA NITROGEN, BLOOD 142 mg/dL (7-18)
[2020-03-28 11:07] LABS: CREATININE 8.7 mg/dL (0.6-1.3)
--- NOTE | 2020-03-28 11:30 | NUR ---
NOTIFIED DR JAMISON AND DR HENNING OF CRITICAL LAB VALUES, RECEIVED TORB FOR DIALYSIS STAT AND CONSULT DR DUARTE FOR DIALYSIS ACCESS, WILL INPUT ORDER AND NOTIFIED DR DUARTE OF PENDING CONSULT.
[2020-03-28 12:00] VITALS: BP 144/57
--- NOTE | 2020-03-28 12:28 | NUR ---
RECEIVED TORB FROM DR HENNING FOR D5W WITH 3 AMPS HCO3 AT 100/H, STAT ABG, 1AMP CALCIUM CHLORIDE 1VPX1, 1 AMP BICARB IVPX1, WILL INPUT ORDER AND CARRY IT OUT.
--- NOTE | 2020-03-28 12:50 | NUR ---
RECEIVED TORB FROM DR HENNING TO TRANSFER PT TO TELEMETRY, INSERT PICC LINE, 1 AMP 8.4% BICARB IVP, WILL INPUT ORDER AND CARRY IT OUT.
[2020-03-28] MEDS ORDERED: SODIUM BICARBONATE 8.4% PFS 50 MEQ/50 ML SYR IVP SCH (13:00)
--- NOTE | 2020-03-28 13:28 | NUR ---
CALLED DR. JAE HENNING [phone] TO REVIEW ABG SAMPLE REPORT SPOKE TO MICHELLE/EXCHANGE DR. POOLE IS SECTION [employer] MD TO BE PAGED CALL BACK NUMBER GIVEN [phone]
--- NOTE | 2020-03-28 13:40 | NUR ---
COURTESY CALL DR. EMILIE JAMISON [phone] TO REVIEW ABG SAMPLE REPORT ORDERED BY DR. NICA HENNING AND THAT DR. POOLE IS MEDICAL TECHNOLOGIST MICROBIOLOGY IN WHICH THEIR EXCHANGE HAD PAGED AT [phone] MD STATES "THAT'S FINE" NO NEW ORDERS FROM DR. JAMISON
[2020-03-28] MEDS: SODIUM BICARBONATE 8.4% 150 MEQ in DEXTROSE 5% 1,000 ML IV SCH (13:45)
--- NOTE | 2020-03-28 13:58 | NUR ---
ADMINISTERED SCHEDULED MEDICATION, MEDICATION EDUCATION PROVIDED. PT TOLERATED WELL. PT IS STABLE, WILL CONTINUE TO MONITOR
--- NOTE | 2020-03-28 14:14 | NUR ---
CALL BACK FROM DR. POOLE; Nithin HOLLIS RCP READ ABG SAMPLE REPORT RESULTS TO NO NEW ORDERS
[2020-03-28 16:00] VITALS: BP 179/73
--- NOTE | 2020-03-28 16:57 | NUR ---
ADMINISTERED SCHEDULED MEDICATION, MEDICATION EDUCATION PROVIDED. PT TOLERATED WELL.PT IS STABLE, WILL CONTINUE TO MONITOR.
--- NOTE | 2020-03-28 17:35 | NUR ---
03/28/20 RD FOLLOW UP COMPLETED PLEASE REFER TO NUTRITION PROGRESS NOTES UNDER CARE ACTIVITY FOR ESTIMATED NUTRITIONAL NEEDS. RD RECOMMENDATIONS: 1. RECOMMEND CHANGE DIET TO RENAL MECHANICAL SOFT (HIGHLY ELEVATED BUN, CR, HX HTN) 2. REPLACE SUPPLEMENT DIET CURRENTLY ENSURE) WITH NEPRO BID WITH CONTINUED PO INTAKE 50% OR LESS 3. FOLLOW-UP IN 3-5 DAYS; MODERATE RISK. MARY URBANO MBA, RD
--- NOTE | 2020-03-28 18:28 | NUR ---
STARTED IV IN LH 24G,
--- NOTE | 2020-03-28 18:29 | NUR ---
RECEIVED TORB TO DECREASED PT'S 1/2 NS TO 35ML/H.
--- NOTE | 2020-03-28 19:10 | NUR ---
ENDORSE PT TO NIGHT NURSE FOR CONTINUITY OF CARE, PT IS STABLE
--- NOTE | 2020-03-28 19:11 | NUR ---
RECEIVED BEDSIDE REPORT FROM DAY RN. PT IS SLEEPING COMFORTABLY IN BED WITH EYES CLOSED. CHEST RISE AND FALL NOTED. RESPIRATIONS ARE EQUAL AND UNLABORED ON HFNC 8L O2. PT APPEARS IN NO DISTRESS. PER RN PT HAS NOT VOIDED CONSULT WITH SURGEON FOR POSSIBLE GAYLA CATH PT HAS NOT YET BEEN SEEN. ALSO PENDING PICC LINE PLACEMENT. MESSAGE LEFT TO PICC LINE NURSE. IV ON L DODD 24G INFUSING SODIUM BICARB PER ORDERS. SKIN IS INTACT. PT IS FROM HOME, NO FAMILY. ON REGULAR M/S DIET PT IS A FEEDER. ON BEDREST D/T WEAKNESS. PT ON DROPLET ISOLATION FOR COVID. CALL LIGHT IS WITHIN REACH. WILL MONITOR FREQUENTLY.
[2020-03-28 20:00] VITALS: BP 116/70
[2020-03-28] MEDS: METOPROLOL 50 MG TAB PO SCH (20:23)
[2020-03-28] MEDS: PIPERACILLIN/TAZOBACTAM 2.25 GM in DEXTROSE 5% 50 ML IV SCH (20:23)
--- NOTE | 2020-03-28 20:23 | NUR ---
VITAL SIGNS ARE STABLE. B/P 116/70 HR 88. TALIA MEDICATIONS GIVEN PER ORDERS. MED EDUCATION GIVEN PT VERBALIZED UNDERSTANDING. PT REPOSITION PER REQUEST. CALL LIGHT IS WITHIN REACH.
--- NOTE | 2020-03-28 21:20 | NUR ---
PICC LINE AT BEDSIDE. TIME OUT PERFORMED. PICC LINE INSERTED ON IDA WITH MINIMAL BLEEDING WELL CONTROLLED. STAT CXR ORDER. PT TOLERATED WELL. Addendum: 03/28/20 at 2301 by Estrella Gatica RN PICC LINE NURSE IS AT BEDSIDE.
[2020-03-28] MEDS ORDERED: CALCIUM CHLORIDE 10% 100 MG/ML SYR IVP SCH (21:45)
--- NOTE | 2020-03-28 22:11 | NUR ---
ADMINISTERED CALCIUM CHLORIDE IVP PER MD ORDERS. PT TOLERATED WELL. WILL CONTINUE TO MONITOR.
[2020-03-28 23:38] LABS: ANION GAP 28.4 (8-16); CHLORIDE 99 mmol/L (98-107); GLUCOSE 132 mg/dL (74-106); POTASSIUM 5.4 mmol/L (3.5-5.1); SODIUM SERUM 135 mmol/L (136-145)
[2020-03-28 23:57] LABS: UREA NITROGEN, BLOOD 164 mg/dL (7-18)
[2020-03-28 23:58] LABS: CREATININE 9.5 mg/dL (0.6-1.3)
[2020-03-29] VITALS: BP 167/72
--- NOTE | 2020-03-29 00:15 | NUR ---
ROUNDS MADE. PT IS RESTING COMFORTABLY IN BED WITH EYES CLOSED. CHEST RISE AND FALL NOTED. CALL LIGHT IS WITHIN REACH.
[2020-03-29] MEDS: SODIUM BICARBONATE 8.4% 150 MEQ in DEXTROSE 5% 1,000 ML IV SCH ×2 (01:00→12:46)
[2020-03-29] MEDS: hydrALAZINE 20 MG/ML VIAL IVP PRN (01:58)
--- NOTE | 2020-03-29 01:58 | NUR ---
ADMINISTERED PRN HYDRALAZINE IVP FOR B/P 167/72 HR 76. PT TOLERATED WELL.
[2020-03-29 04:00] VITALS: BP 150/77
--- NOTE | 2020-03-29 04:20 | NUR ---
PT HAS NOT VOIDED DURING SHIFT, BLADDER IS DISTENDED. USED BLADDER SCANNER >999CC OF URINE. PAGED DR. ARORA WAITING FOR CALL BACK.
--- NOTE | 2020-03-29 04:45 | NUR ---
ATTEMPTED TO INSERT ORELLANA CATHETER PER MD ORDERS. USED 16FR UNABLE TO ADVANCE. TRIED 14FR UNABLE TO ADVANCED. PT'S URETHRA IS VISIBLE BUT UNABLE TO ADVANCE THE CATHETER. ANOTHER RN ATTEMPTED WELL COULD NOT ADVANCE <2CM ADVANCED WHEN FELT RESISTANCE. STERILE TECHNIQUE MAINTAIN DURING PROCEDURE. PT TOLERATED WELL.
--- NOTE | 2020-03-29 05:00 | NUR ---
NEW ORDERS RECEIVED FROM DR. DUARTE FOR GAYLA CATH KIT, CONSENT, HEPARIN 5000U IVP, PORTABLE US. ORDERS CARRIED OUT.
[2020-03-29] MEDS: PIPERACILLIN/TAZOBACTAM 2.25 GM in DEXTROSE 5% 50 ML IV SCH ×3 (05:28→21:00)
--- NOTE | 2020-03-29 05:45 | NUR ---
PAGED DR ARORA UNABLE TO INSERT ORELLANA. NEW ORDER FOR UROLOGY CONSULT:DR TERAN.
--- NOTE | 2020-03-29 06:40 | NUR ---
PAGED DR. TERAN FOR CONSULT, INFORMED UNABLE TO PLACE ORELLANA CATHETER PT HAS NOT VOIDED AND BLADDER SCANNER SHOWS >999CC OF URINE BLADDER IS DISTENDED. PER DR TERAN WILL HEAD RIGHT OVER. WILL GATHER SUPPLIES.
[2020-03-29 07:29] LABS: HEMATOCRIT 31.6 % (36-52); HEMOGLOBIN 10.5 g/dL (12.0-18.0); MEAN CORPUSCULAR HEMOGLOBIN 28 pg (27-31); MEAN CORPUSCULAR HGB CONC 33 g/dL (33-37); MEAN CORPUSCULAR VOLUME 83.7 fL (80-94); PLATELET COUNT (AUTO) 223 K/uL (140-450); RED BLOOD CELL COUNT(AUTO) 3.77 MIL/uL (4.20-6.10); WHITE BLOOD COUNT (AUTO) 16.7 K/uL (4.8-10.8)
--- NOTE | 2020-03-29 07:30 | NUR ---
GAVE BEDSIDE REPORT TO DAY RN. PT ENDORSED IN STABLE CONDITION. PENDING GAYLA CATH PLACEMENT AND ORELLANA INSERTION THIS AM. SUPPLIES ARE IN NURSING STATION.
--- NOTE | 2020-03-29 07:32 | NUR ---
RECEIVED REPORT FROM NIGHT NURSE PATIENT IS ON 8LPM HIGH FLOW OXYGEN NC SATURATION AT 90-91% ON REGULAR DIET MECHANICAL SOFT, IV INTACT ON LEFT HAND AND RIGHT UA PICC LINE DOUBLE [id number] FOR GAYLA CATH INSERTION TODAY BY DR DUARTE CONSENT DONE . PATIENT UNABLE TO PEE AND DR TERAN AWARE, PT IS A FEEDER.SAFETY MEASURES IN PLACE AND CALL LIGHT WITHIN REACH.
[2020-03-29 07:57] LABS: ANION GAP 30.4 (8-16); CARBON DIOXIDE 13.9 mmol/L (21-32); CHLORIDE 98 mmol/L (98-107); GLUCOSE 130 mg/dL (74-106); POTASSIUM 5.3 mmol/L (3.5-5.1); SODIUM SERUM 137 mmol/L (136-145)
[2020-03-29 08:00] VITALS: BP 157/77
--- NOTE | 2020-03-29 08:10 | NUR ---
DR DUARTE INSERTED A GAYLA CATH ON THE RIGHT IJ DOUBLE LUMEN, PAT TOLERATED WELL INTACT AND PATENT.
[2020-03-29 08:40] LABS: CREATININE 9.8 mg/dL (0.6-1.3); UREA NITROGEN, BLOOD 170 mg/dL (7-18)
--- NOTE | 2020-03-29 08:44 | NUR ---
RECEIVED CRITOICAL VALEU BUN 170 AND CREATININE AT 9.8 DR ARORA AWARE
--- NOTE | 2020-03-29 09:30 | NUR ---
ORELLANA CATHETER INSERTED BY DR TERAN. WITH URINE OUT PUT OF 1200 ML.
[2020-03-29] MEDS ORDERED: LIDOCAINE MPF 1% 5 ML ONE (09:39)
[2020-03-29] MEDS: VITAMIN D 400 IU TAB PO SCH (10:30)
[2020-03-29] MEDS: ZINC SULF 220 MG CAP PO SCH ×2 (10:31→21:00)
[2020-03-29] MEDS: ASCORBIC ACID 500 MG TAB PO SCH (10:31)
[2020-03-29] MEDS: METOPROLOL 50 MG TAB PO SCH ×2 (10:32→21:00)
[2020-03-29] MEDS: hydrALAZINE 10 MG TAB PO SCH ×3 (10:32→16:51)
--- NOTE | 2020-03-29 10:32 | NUR ---
MEDICATION DUE GIVEN AND CHECK VITAL SIGNS PRIOR TO MEDICATION BP 157/77 NH 92 PATIENT IS STABLE ABLE TO TOLERATE WELL, DOESN'T WANT TO EAT BUT ABLE TO FINISHED ENSURE.
[2020-03-29] MEDS: DEXAMETHASONE 4 MG TAB PO SCH (10:33)
[2020-03-29 12:00] VITALS: BP 141/57
--- NOTE | 2020-03-29 12:46 | NUR ---
MEDICATION DUE GIVEN AND CHECK VITAL SIGNS PRIOR TO MEDICATION BP 141/57 FL 86. PATIENT IS SLEEPING
[2020-03-29 13:24] LABS: LYMPHOCYTES % (MANUAL) 2 % (20-46); MONOCYTES % (MANUAL) 3 % (5-12)
--- NOTE | 2020-03-29 13:55 | NUR ---
IV FLUIDS NON ADMIN OTHER IV FLUID STILL INFUSING.
[2020-03-29] MEDS: NACL 0.45% 1,000 ML IV SCH (15:55)
[2020-03-29 16:00] VITALS: BP 137/62
--- NOTE | 2020-03-29 17:00 | NUR ---
MEDICATION DUE GIVEN AND CHECK VITAL SIGNS BP 137/62 UT 106 SATURATION AT 92%
--- NOTE | 2020-03-29 19:17 | NUR ---
ENDORSED TO NIGHT NURSE FOR CONTINUITY OF CARE. PT IS STABLE.
--- NOTE | 2020-03-29 19:20 | NUR ---
RECEIVED PATIENT FROM AM SHIFT NURSE FOR CONTINUITY OF CARE. RESPIRATIONS SLIGHTLY TACHYPNEIC, LABORED UPON EXERTION. CONTINUES ON O2 4L VIA NRM, O2SAT 90%. SKIN WARM, DRY. SALINE LOCK TO LEFT HAND 24G PATENT/INTACT. RIGHT UPPER ARM PICC PATENT/INTACT, INFUSING FLUIDS WELL. NO C/O PAIN. NO S/S ACUTE DISTRESS. ABDOMEN SOFT, NONTENDER, NONDISTENDED. BOWEL SOUNDS ACTIVE X4 QUADRANTS. PATIENT IS INCONTINENT OF B/B. PLAN OF CARE DISCUSSED. CALL LIGHT WITHIN REACH. ISOLATION PRECAUTIONS OBSERVED BY ALL STAFF. SAFETY PRECAUTIONS IN PLACE. Addendum: 03/30/20 at 0503 by Irma Malloy RN ADD: RIGHT IJ GAYLA CATH NOTED. DRESSING CLEAN/DRY AND INTACT.
[2020-03-29 20:00] VITALS: BP 121/72
[2020-03-29] MEDS: ZOLPIDEM 5 MG TAB PO PRN (20:30)
--- NOTE | 2020-03-29 21:00 | NUR ---
DUE MEDS GIVEN. PATIENT TURNED AND REPOSITIONED FOR COMFORT. NO S/S ACUTE DISTRESS. NO C/O PAIN. CALL LIGHT WITHIN REACH. ISOLATION PRECAUTIONS OBSERVED BY ALL STAFF. SAFETY PRECAUTIONS IN PLACE.
--- NOTE | 2020-03-29 23:30 | NUR ---
INCONTINENT CARE RENDERED WITH LABEL MAKER AT BEDSIDE. NO S/S ACUTE DISTRESS. CALL LIGHT WITHIN REACH. SAFETY PRECAUTIONS IN PLACE. ISOLATION PRECAUTIONS OBSERVED BY ALL STAFF.
[2020-03-30] VITALS: BP 167/72
[2020-03-30] MEDS: SODIUM BICARBONATE 8.4% 150 MEQ in DEXTROSE 5% 1,000 ML IV SCH ×2
--- NOTE | 2020-03-30 01:00 | NUR ---
MADE ROUNDS. PATIENT IS SLEEPING WELL. NO S/S ACUTE DISTRESS. CALL LIGHT WITHIN REACH. ISOLATION PRECAUTIONS OBSERVED BY ALL STAFF. SAFETY PRECAUTIONS IN PLACE.
[2020-03-30] MEDS ORDERED: SODIUM BICARBONATE 8.4% 50 MEQ/50 ML VIAL ONE (02:59)
--- NOTE | 2020-03-30 03:00 | NUR ---
PATIENT ASLEEP. NO S/S ACUTE DISTRESS. CALL LIGHT WITHIN REACH. SAFETY PRECAUTIONS IN PLACE. ISOLATION PRECAUTIONS OBSERVED BY ALL STAFF.
[2020-03-30 04:00] VITALS: BP 160/65
--- NOTE | 2020-03-30 05:04 | NUR ---
PATIENT CONTINUES IN STABLE CONDITION. ASLEEP. NO S/S ACUTE DISTRESS. CALL LIGHT WITHIN REACH. ISOLATION PRECAUTIONS OBSERVED BY ALL STAFF. SAFETY PRECAUTIONS IN PLACE.
[2020-03-30] MEDS: PIPERACILLIN/TAZOBACTAM 2.25 GM in DEXTROSE 5% 50 ML IV SCH ×3 (05:19→21:02)
--- NOTE | 2020-03-30 07:20 | NUR ---
ENDORSED PATIENT TO AM SHIFT NURSE FOR CONTINUITY OF CARE.
[2020-03-30 08:00] VITALS: BP 100/57
--- NOTE | 2020-03-30 08:45 | NUR ---
MEDICATION DUE GIVEN CHECK VITAL SIGNS PRIOR TO MEDICATION BP 100/57 KS 89 BP MEDICATION HELD. NO DISTRESS NOTED
[2020-03-30] MEDS: hydrALAZINE 10 MG TAB PO SCH ×3 (09:00→17:07)
[2020-03-30] MEDS: METOPROLOL 50 MG TAB PO SCH ×2 (09:00→21:02)
[2020-03-30] MEDS: ASCORBIC ACID 500 MG TAB PO SCH (09:24)
[2020-03-30] MEDS: ZINC SULF 220 MG CAP PO SCH ×2 (09:24→21:03)
[2020-03-30] MEDS: VITAMIN D 400 IU TAB PO SCH (09:25)
[2020-03-30] MEDS: DEXAMETHASONE 4 MG TAB PO SCH (09:28)
--- NOTE | 2020-03-30 10:00 | NUR ---
COVID 19 PCR TEST TAKEN AND SEND TO LABORATORY
[2020-03-30 11:14] LABS: BASOPHILS % (AUTO) 0.3 % (0.0-2.0); EOSINOPHILS % (AUTO) 0.1 % (0.0-4.0); HEMATOCRIT 25.5 % (36-52); HEMOGLOBIN 8.6 g/dL (12.0-18.0); LYMPHOCYTES # (AUTO) 0.3 K/uL (2.0-11.5); LYMPHOCYTES % (AUTO) 2.4 % (20.5-51.1); MEAN CORPUSCULAR HEMOGLOBIN 28 pg (27-31); MEAN CORPUSCULAR HGB CONC 34 g/dL (33-37); MEAN CORPUSCULAR VOLUME 83.8 fL (80-94); MONOCYTES # (AUTO) 0.4 K/uL (0.8-1.0); MONOCYTES % (AUTO) 3.1 % (1.7-9.3); NEUTROPHILS # (AUTO) 11.2 K/uL (1.8-7.7); NEUTROPHILS % (AUTO) 94.1 % (42.2-75.2); PLATELET COUNT (AUTO) 149 K/uL (140-450); RED BLOOD CELL COUNT(AUTO) 3.04 MIL/uL (4.20-6.10); RED CELL DISTRIBUTION WIDTH 15.6 % (11.6-13.7); WHITE BLOOD COUNT (AUTO) 11.9 K/uL (4.8-10.8)
[2020-03-30 11:22] LABS: ANION GAP 9.1 (8-16); CARBON DIOXIDE 32.3 mmol/L (21-32); CHLORIDE 111 mmol/L (98-107); CREATININE 1.3 mg/dL (0.6-1.3); GLUCOSE 164 mg/dL (74-106); POTASSIUM 3.4 mmol/L (3.5-5.1); SODIUM SERUM 149 mmol/L (136-145); UREA NITROGEN, BLOOD 47 mg/dL (7-18)
[2020-03-30 12:00] VITALS: BP 168/57
--- NOTE | 2020-03-30 12:00 | NUR ---
CHECK VITAL SIGNS BP 168/57 GA [address] ARORA AWARE AND SAID OK AND WILL CHECK LABORATORY TOMORROW.
--- NOTE | 2020-03-30 12:32 | NUR ---
MEDICATION DUE GIVEN VITAL SIGNS CHECK BP 168/57 MO 91. BP MEDICATIONS GIVEN
[2020-03-30] MEDS: NACL 0.45% 1,000 ML IV SCH (15:51)
[2020-03-30 16:00] VITALS: BP 151/65
--- NOTE | 2020-03-30 17:00 | NUR ---
MEDICATION DUE GIVEN CHECK VITAL SIGNS PRIOR TO MEDICATION BP 151/65B UT 94
--- NOTE | 2020-03-30 19:05 | NUR ---
RECEIVED PATIENT FROM AM SHIFT NURSE FOR CONTINUITY OF CARE. ALERT AND ABLE TO MAKE NEEDS KNOWN. RESPIRATIONS EVEN, UNLABORED. CONTINUES ON O2 L VIA NC. O2SAT 95%. SKIN WARM, DRY. RIGHT UPPER ARM PICC NOTED, PATENT/INTACT, INFUSING FLUIDS WELL. NO C/O PAIN. NO S/S ACUTE DISTRESS. ABDOMEN SOFT, NONTENDER, NONDISTENDED. BOWEL SOUNDS ACTIVE X4 QUADRANTS. PATIENT IS INCONTINENT OF B/B. PLAN OF CARE DISCUSSED. ISOLATION PRECAUTIONS OBSERVED BY ALL STAFF. SAFETY PRECAUTIONS IN PLACE. CALL LIGHT WITHIN REACH.
--- NOTE | 2020-03-30 19:30 | NUR ---
ENDORSED TO NIGHT NURSE FOR CONTINUITY OF CARE PT IS STABLE.
[2020-03-30 20:00] VITALS: BP 158/74
[2020-03-30] MEDS: ZOLPIDEM 5 MG TAB PO PRN (20:45)
--- NOTE | 2020-03-30 21:10 | NUR ---
DUE MEDS GIVEN. PATIENT TOLERATED WELL. NO S/S ACUTE DISTRESS. CALL LIGHT WITHIN REACH.
--- NOTE | 2020-03-30 23:00 | NUR ---
PATIENT TURNED AND REPOSITIONED FOR COMFORT AND TO MAINTAIN SKIN INTEGRITY. NO S/S ACUTE DISTRESS. CALL LIGHT WITHIN REACH.
[2020-03-31] VITALS: BP 147/62
--- NOTE | 2020-03-31 01:00 | NUR ---
MADE ROUNDS. PATIENT IS ASLEEP. NO S/S ACUTE DISTRESS. CALL LIGHT WITHIN REACH.
--- NOTE | 2020-03-31 03:00 | NUR ---
BED BATH GIVEN WITH STONE SAWYER AT BEDSIDE. PATIENT IS RESTING COMFORTABLY IN BED. NO S/S ACUTE DISTRESS. CALL LIGHT WITHIN REACH.
[2020-03-31 04:00] VITALS: BP 160/75
[2020-03-31] MEDS: PIPERACILLIN/TAZOBACTAM 2.25 GM in DEXTROSE 5% 50 ML IV SCH ×3 (04:26→21:07)
--- NOTE | 2020-03-31 05:00 | NUR ---
REPOSITIONED PATIENT FOR COMFORT. NO S/S ACUTE DISTRESS. NO C/O PAIN. CALL LIGHT WITHIN REACH.
--- NOTE | 2020-03-31 07:25 | NUR ---
ENDORSED PATIENT TO NIGHTSHIFT NURSE FOR CONTINUITY OF CARE.
--- NOTE | 2020-03-31 07:30 | NUR ---
REC'D BEDSIDE ENDORSEMENT FROM NIGHTSHIFT NURSE. WILL CONTINUE W/ POC.
[2020-03-31 08:00] VITALS: BP 169/61
[2020-03-31] MEDS ORDERED: VITD400 PO (08:41)
[2020-03-31] MEDS ORDERED: DEC4 PO (08:41)
[2020-03-31] MEDS ORDERED: APR10 PO (08:41)
[2020-03-31] MEDS ORDERED: LEVO500T98 PO (08:41)
[2020-03-31] MEDS ORDERED: VITC500 PO (08:41)
[2020-03-31] MEDS ORDERED: METO50TA99 PO (08:41)
[2020-03-31] MEDS ORDERED: ZINC220C28 PO (08:41)
[2020-03-31] MEDS: DEXAMETHASONE 4 MG TAB PO SCH (09:28)
[2020-03-31] MEDS: METOPROLOL 50 MG TAB PO SCH ×2 (09:28→21:07)
[2020-03-31] MEDS: VITAMIN D 400 IU TAB PO SCH (09:29)
[2020-03-31] MEDS: ASCORBIC ACID 500 MG TAB PO SCH (09:29)
[2020-03-31] MEDS: ZINC SULF 220 MG CAP PO SCH ×2 (09:29→21:07)
[2020-03-31] MEDS: hydrALAZINE 10 MG TAB PO SCH ×3 (09:29→18:33)
[2020-03-31 09:31] LABS: BASOPHILS % (AUTO) 0.4 % (0.0-2.0); EOSINOPHILS % (AUTO) 0.4 % (0.0-4.0); HEMATOCRIT 24.9 % (36-52); HEMOGLOBIN 8.5 g/dL (12.0-18.0); LYMPHOCYTES # (AUTO) 0.5 K/uL (2.0-11.5); LYMPHOCYTES % (AUTO) 4.6 % (20.5-51.1); MEAN CORPUSCULAR HEMOGLOBIN 29 pg (27-31); MEAN CORPUSCULAR HGB CONC 34 g/dL (33-37); MEAN CORPUSCULAR VOLUME 84.7 fL (80-94); MONOCYTES # (AUTO) 0.3 K/uL (0.8-1.0); MONOCYTES % (AUTO) 3.1 % (1.7-9.3); NEUTROPHILS # (AUTO) 9.7 K/uL (1.8-7.7); NEUTROPHILS % (AUTO) 91.5 % (42.2-75.2); PLATELET COUNT (AUTO) 145 K/uL (140-450); RED BLOOD CELL COUNT(AUTO) 2.94 MIL/uL (4.20-6.10); RED CELL DISTRIBUTION WIDTH 15.9 % (11.6-13.7); WHITE BLOOD COUNT (AUTO) 10.6 K/uL (4.8-10.8)
[2020-03-31 09:38] LABS: ANION GAP 10.3 (8-16); CARBON DIOXIDE 28.6 mmol/L (21-32); CHLORIDE 111 mmol/L (98-107); CREATININE 0.8 mg/dL (0.6-1.3); GLUCOSE 103 mg/dL (74-106); POTASSIUM 3.9 mmol/L (3.5-5.1); SODIUM SERUM 146 mmol/L (136-145); UREA NITROGEN, BLOOD 28 mg/dL (7-18)
--- NOTE | 2020-03-31 09:45 | NUR ---
ADMINISTERED SCHED MEDS PER MD ORDER. PATIENT TOLERATED WELL. MEDICATION REINFORCEMENT NEEDED DUE TO LANGUAGE BARRIER. SAFETY MEASURES IN PLACE. WILL CONT TO MONITOR.
[2020-03-31 09:53] LABS: MAGNESIUM 2.5 mg/dL (1.8-2.4); PHOSPHORUS 1.4 mg/dL (2.5-4.9)
--- NOTE | 2020-03-31 11:58 | NUR ---
DA BRODERICKNER: RECEIVED ORDER FOR HOME O2 FAXED TO [facility]. RECEIVED A CALL FROM JOHANA AT [facility], UNFORTUNATELY THIS PATIENT WILL HAVE TO PAY OUT OF POCKET. Addendum: 03/31/20 at 1206 by Viry Chawla CM DA DIEHL: TRIED CONTACTING PATIENT HE DID NOT ANSWER. NO FAMILY NUMBERS LISTED ON HIS FACE SHEET. I SPOKE TO NEIL WARD PATIENT DOES NOT HAVE A CELL PHONE OR ROOM PHONE. SHE IS GOING TO TRY TO GET A ROOM PHONE SO I COULD CONTACT THIS PATIENT. Addendum: 03/31/20 at 1412 by Viry Chawla CM DA DIEHL: HEDY WAS ABLE TO GET IN CONTACT WITH PATIENTS EARLE BARTH [phone]. TRIED CONTACTING BERTRAND TO DISCUSS HOME O2 NO ANSWER. LEFT A VOICEMAIL WILL FOLLOW UP. Addendum: 03/31/20 at 1418 by Viry Chawla DA DIEHL: I WAS ABLE TO GET IN CONTACT WITH BERTRAND HOWEVER SHE IS THE PATIENTS NEIGHBOR AND CAN NOT HELP WITH THE HOME O2. SHE STATED THAT PATIENT DOESN'T HAVE ANY FAMILY INVOLVED. HE DOES HAVE A SON BUT HE LIVES IN [place] Addendum: 03/31/20 at 1536 by Viry Chawla DA BRODERICKNER: SPOKE TO JUSTA NICHOLAS SHE WAS ABLE TO TRACK DOWN THAT PATIENT HAD A DIFFERENT POLICY NUMBER THAT IS ACTIVE. PATIENT WAS SEEN HERE TWICE AT [facility]. FAXED NEW POLICY TO [facility], TRIED TO [facility]CT [phone] BUT SHE WAS BUSY. SPOKE TO MARILOU SHE WILL HAVE TE CONTACT ME BACK. Addendum: 03/31/20 at 1629 by Viry Chawla CM DA DIEHL: PATIENTS LIZ-ARLINE IS ACTIVE. TE DAVE IS REQUESTING ROOM AIR SATS Addendum: 03/31/20 at 1631 by Viry Chawla CM DA DIEHL: SANDOVAL JONES IN RT HE WILL TEST THE PATIENT ON ROOM AIR Addendum: 04/01/20 at 1202 by Viry Chawla CM DC PECAN PICKER: RECEIVED A CALL FROM TE AT [facility] SHE RECEIVED ALL DOCUMENTATION NEEDED. PORTABLE AND CONCENTRATOR WILL BE DELIVERED TO BEDSIDE. Addendum: 04/01/20 at 1445 by Viry Chawla CM DC PECAN PICKER: FOLLOWED UP WITH [facility] AND SPOKE TO TE [phone] THE RV SERVICER SHOULD BE HERE SHORTLY TO DELIVER OXYGEN Addendum: 04/01/20 at 1612 by Viry Chawla CM DC PECAN PICKER: TRIED CONTACTING PATIENTS NEIGHBOR BERTRAND, NO ANSWER BUT LEFT A VOICEMAIL. Addendum: 04/01/20 at 1616 by Magno Russell SS SW LEFT MULTIPLE VM TO BERTRAND REGARDING PICKING PATIENT UP. Addendum: 04/02/20 at 0830 by Magno Russell SS SW LEFT VM TO BERTRAND ONCE MORE. Addendum: 04/02/20 at 1257 by Magno Russell SS HEDY FAXED CLINICALS TO [facility], [facility], [facility], [facility], [facility], [facility], [facility], AND [facility]. HEDY WILL FOLLOW UP. Addendum: 04/04/20 at 0912 by Viry Chawla DA DIEHL: SPOKE TO DODIE FROM [facility] THEY CAN NOT ACCEPT THIS PATIENT AT THIS TIME BECAUSE HIS MEDI-ARLINE IS ONLY FOR EMERGENCIES. I LET HER KNOW THAT OUR MEDI-ARLINE REP TERRY HAS BEEN TRYING TO CONTACT THE PATIENT TO PROCESS THE PATIENTS APPLICATION. FAXED TO [facility]. OSITO FROM [facility] CAN NOT ACCEPT FOR THE SAME REASON. Addendum: 04/07/20 at 1624 by Magno Russell SS HEDY SPOKE WITH BERTRAND QUENTIN WHO STATED THAT SHE WOULD PICK PATIENT UP AFTER 6PM. Addendum: 04/07/20 at 1626 by Magno BAY ELADIA NOTIFIED NEIL FRASER THAT PATIENT WILL BE DISCHARGED TO [facility] AFTER 6PM. OXYGEN IS AT BEDSIDE. Addendum: 04/08/20 at 1325 by Magno BAY HEDY CONTACTED BERTRAND [facility] REGARDING DISCHARGE OF PATIENT. HEDY LEFT MULTIPLE VM. HEDY WILL FOLLOW UP. Addendum: 04/08/20 at 1349 by Magno Russell SS HEDY CONTACTED [employer] TO GET IN CONTACT WITH BERTRAND BARKSDALE Addendum: 04/08/20 at 1528 by Viry Chawla CM DA DIEHL: FAXED PATIENTS CLINICALS TO [facility]. WILL FOLLOW UP Addendum: 04/09/20 at 1518 by Ely Lyon RN DC PLANNING: CALLED [facility] SPOKE WITH ELLIE STATED THEY ARE UNABLE TO ACCEPT PATIENT WITH [facility] , I EXPLAINED WE APPLIED FOR [facility] AND IT'S ON THE PROCESS. PER ELLIE BUSINESS SAID NO ALREADY BUT SHE WILL ASK THEM AGAIN. FAXED TO [facility], [facility] , AND [facility]. CM TO FOLLOW Addendum: 04/10/20 at 1224 by Magno BAY PATIENT IS PENDING [facility] TO TRANSFER TO [facility] FOR JAIL PLACEMENT. Addendum: 04/10/20 at 1540 by Ely Lyon RN DC PLANNING: FAXED THE REFERRAL TO [facility] AND SPOKE WITH EMILY THE ROAD SIGN INSTALLER STATED NO BED AVAILABLE TODAY AND MIGHT HAVE ONE TOMORROW OR ON THE WEEKEND. DC PLAN AWAITING FOR THE [facility] MEDICAL TO BE APPROVED. CM TO FOLLOW Addendum: 04/13/20 at 1130 by Ely Lyon RN DC PLANNING: SPOKE WITH EMILY [facility] STATED THE MANAGER UTILITIES WILL TAKE PATIENT ONCE MEDICAL INSURANCE IS IN PLACE. MEDICAL IS IN THE PROCESS.CM TO FOLLOW Addendum: 04/15/20 at 1210 by Ely Lyon RN DC PLANNING: SPOKE WITH BERTRAND PT'S NEIGHBOR NOTIFIED HER PT'S CLINICAL CONDITION AND ASKED HER IF THERE IS ANY FAMILY PER BERTRAND THERE IS A DAUGHTER HERE AND SON AT [place] WILL NOTIFY THEM AND CALL BACK. Addendum: 04/18/20 at 1335 by Omayra Scales CM ORALLY INTUBATED TO VENT 04/15/2020, FIO2 45%, PEEP 5, O2 SAT 96%. SEDATED WITH PROPOFOL. ON DECADRON. SEEN BY PULMO - CONT WITH MECHANICAL VENTILATION, PROGNOSIS POOR.
[2020-03-31 12:00] VITALS: BP 160/77
--- NOTE | 2020-03-31 13:40 | NUR ---
ADMINISTERED PRESCRIBED MEDS PER MD ORDER. PATIENT TOLERATED WELL. MEDICATION EDUCATION REINFORCEMENT NEEDED. PATIENT SHOWS NO SIGNS OF DISTRESS/DISCOMFORT. SAFETY MEASURES IN PLACE. WILL CONT TO MONITOR.
--- NOTE | 2020-03-31 14:06 | NUR ---
SOCIAL WORK NOTE: Patient's Orientation Unable To Assess Information Provided By BERTRAND BARTH - EARLE Comments SW MET PATIENT AT BEDSIDE TO COMPLETE ASSESSMENT. SW USED LEATHER SORTER TO COMPLETE ASSESSMENT. Tower Watchman, Realtionship and Phone Number BERTRAND BARTH FRIEND [phone] [facility] Power of Mud Analysis Well Logging Operator No Does Patient Have a POLST No Identifying Problems Limited Or No Support Is A Social Work Consult Needed No Mandate Report Filed No Explanation Of Identifying Problems PATIENT IS A 80-YEAR-OLD MALE ADMITTED FOR COVID AND PNEUMONIA. PATIENT HAS PMHX OF PARKINSON'S, DIABETES, AND ARTHRITIS. Admitted From Home Pre-Admission Level Of Functioning Status Assist With ADL Level Of Functioning Comment BERTRAND STATED SHE ASSISTS PATIENT WITH ADLS. Prior Resources/Services Used In Last 12 Months No Prior Resources Used Prior DME No Prior DME Used Dialysis Comments N/A Living Situation Apartment Patient Had Caregiver No Home Support No Caregiver Issues Financial Issues No Known Financial Issue Referral To The Financial Counselor Needed No Factors/Needs No D/C Needs Identified Explanation And Or Other Factors Affecting/Possible DC Needs BERTRAND STATED SHE WOULD PICK PATIENT UP TODAY AT 6:30PM. Pt/Rep Participated In Discharge Plan Yes Patient/Family Agress With Discharge Plan Yes Discharge Plan Comments TENTATIVE DISCHARGE PLAN IS FOR PATIENT TO RETURN HOME. DC Plan Status Initiated Addendum: 04/01/20 at 1625 by Magno BAY 7HEDY CONTACTED [employer] REGARDING WELLNESS CHECK SENT TO PATIENT'S ADDRESS REGARDING PATIENT BEING PICKED UP [phone]. HEDY SPOKE WITH OFFICER LAURENCE. HEDY PROVIDED NURSING STATION PHONE NUMBER [phone] FOR CONTACT INFORMATION. Addendum: 04/02/20 at 1216 by Magno Russell HEDY SPOKE WITH CESILIA FROM [employer] [phone]. PER CESILIA, SHE ARRIVED AT ADDRESS AND SPOKE TO FAMILY AND PROVIDED CONTACT INFORMATION FOR HOSPITAL. FAMILY DID NOT REACH OUT TO HOSPITAL. HEDY CONTACTED BERTRAND AND LEFT ADDITIONAL VM. HEDY WILL FOLLOW UP. CESILIA STATED THAT SHE WILL REACH GO TO [facility] ONCE MORE. Addendum: 04/02/20 at 1247 by Magno Russell HEDY CONTACTED [facility] AND SPOKE TO ANNABELLA NARVAEZ. HEDY MADE APS REPORT TO [facility] [phone]. REPORT #[id number]. HEDY WILL FOLLOW UP NEEDED. HEDY WAS CONTACTED BY [employer] POLICE WHO STATED THAT THEY HAVE REACHED BERTRAND BARTH. THEY STATED THAT BERTRAND WOULD REACH OUT. HEDY CONTACTED BERTRAND. BRETRAND STATED THAT SHE WORKS ALL DAY AND THAT SHE WOULD ATTEMPT TO MAKE ARRANGEMENTS. BERTRAND STATED THAT SHE IS UNABLE TO GET INTO PATIENT'S APARTMENT, AND THERE IS NO OTHER FAMILY INVOLVED. BERTRAND STATED THAT PATIENT HAS A SON IN [place] WHO WOULD LIKE TO BE INVOLVED BUT PATIENT IS NOT HERE. HEDY CONSULTED WITH PEDIATRIC ANESTHESIOLOGIST. HEDY NOTIFIED THAT SNF PLACEMENT SHOULD BE SOUGHT. Addendum: 04/07/20 at 1618 by Magno BAY HEDY REACHED OUT TO LEW/MEDI-ARLINE PEARSON REGARDING MEDI-ARLINE STATUS OF PATIENT. PER LILI, HE IS WORKING ON MEDI-ARLINE FOR PATIENT. Addendum: 04/08/20 at 0856 by Magno BAY HEDY CONTACTED BERTRAND BARTH [phone] AND LEFT VM TO FOLLOW UP REGARDING WHY PATIENT WAS NOT PICKED UP AFTER SHE HAD AGREED TO. HEDY WILL FOLLOW UP WITH BERTRAND. Addendum: 04/08/20 at 1509 by Magno BAY HEDY SPOKE TO OFFICER RADHA WHO STATED THAT PATIENT'S RESIDENCE IS A 3 BEDROOM APARTMENT THAT IS RENTED OUT BETWEEN TWO ROOMMATES AND PATIENT. OFFICER RADHA STATED THAT ROOMMATES STATED THAT THEY ARE UNABLE TO ASSIST PATIENT AND THEY ARE AWARE THAT PATIENT IS AT HOSPITAL. OFFICER RADHA ALSO STATED THAT HE SAW PATIENT'S ROOM AND STATED THAT THEY SAID IT WAS AVAILABLE FOR PATIENT IF HE WAS TO RETURN. HEDY SPOKE WITH PATIENT WITH ASSISTED LIVING ASSISTANT STEVEN Brightergy. PER PATIENT, HE RECEIVES NO INCOME AND HAS NO CONTACT INFORMATION FOR FAMILY MEMBERS. PATIENT STATED THAT ROOM WAS PROVIDED TO HIM A FAVOR. PER RECREATION ACTIVITIES COORDINATOR, PATIENT IS UNABLE TO AMBULATE AND REQUIRES TOTAL ASSISTANCE. PATIENT STATED THAT HE HAS NO FAMILY TO ASSIST HIM. PER MEDI-ARLINE WORKER, PATIENT'S MEDI-ARLINE APPLICATION HAS BEEN COMPLETED. Addendum: 04/15/20 at 1159 by Magno BAY HEDY CONTACTED BERTRAND TO INFORM HER OF PATIENT'S STATUS. HEDY TRANSFERRED BERTRAND TO ELADIA SIMONS
[2020-03-31 16:00] VITALS: BP 165/56
--- NOTE | 2020-03-31 16:58 | NUR ---
LAZARUS/REACTOR OPERATOR REQUESTED HOME OXYGEN QUALIFICATIONS LOC AWAKE AND ALERT VERBALLY RESPONSIVE TO GEM STONE CUTTER VERBAL GOOD CHEST RISE AIRWAY PATENT ON SUPPLEMENTAL OXYGEN AT 5 LPM VIA HIGH FLOW BUBBLE HUMIDIFIER SATURATION 90% REMOVED FROM SUPPLEMENTAL OXYGEN AT THIS TIME GEM STONE CUTTER TO MONITOR
--- NOTE | 2020-03-31 17:02 | NUR ---
PATIENT UNABLE MAINTAIN ADEQUATE OXYGEN LEVEL ON ROOM AIR DESCENDING SATURATION WITHIN FOUR MINUTES TO 77%
--- NOTE | 2020-03-31 18:15 | NUR ---
PER CHARGE NURSE, PATIENT TO BE DISCHARGED AND PICKED UP BY [facility]. PENDING TIRE TESTER DETAILS CONFIRMATION FROM [facility].
--- NOTE | 2020-03-31 18:33 | NUR ---
ADMINISTERED PRESCRIBED MEDS PER MD ORDER. PATIENT TOLERATED WELL. SAFETY MEASURES IN PLACE. WILL CONT TO MONITOR.
[2020-03-31] MEDS: NACL 0.45% 1,000 ML IV SCH (18:34)
--- NOTE | 2020-03-31 19:30 | NUR ---
RECEIVED PATIENT FROM AM SHIFT NURSE FOR CONTINUITY OF CARE. ALERT AND ABLE TO MAKE NEEDS KNOWN. RESPIRATIONS EVEN, UNLABORED. CONTINUES ON O2 3L VIA NC. O2SAT 90%. SKIN WARM, DRY. RIGHT UPPER ARM PICC NOTED, PATENT/INTACT, INFUSING FLUIDS WELL. NO C/O PAIN. NO S/S ACUTE DISTRESS. ABDOMEN SOFT, NONTENDER, NONDISTENDED. BOWEL SOUNDS ACTIVE X4 QUADRANTS. ORELLANA CATHETER PATENT WITH YELLOW URINE DRAINING TO GRAVITY. PATIENT DOES NOT HAVE A RIDE HOME. WILL FOLLOW UP WITH CM IN THE AM REGARDING DISCHARGE PLAN. ISOLATION PRECAUTIONS OBSERVED BY ALL STAFF. SAFETY PRECAUTIONS IN PLACE. CALL LIGHT WITHIN REACH.
--- NOTE | 2020-03-31 19:42 | NUR ---
TRYING TO CALL BERTRAND THE FRIEND WHOSE SUPPOSED TO PICK HER UP COUPLE OF TIMES. LEFT MESSAGE AND STILL NOT ANSWERING.
[2020-03-31 20:00] VITALS: BP 150/71
[2020-03-31] MEDS: ZOLPIDEM 5 MG TAB PO PRN (21:08)
--- NOTE | 2020-03-31 21:30 | NUR ---
DUE MEDS GIVEN. PATIENT TURNED AND REPOSITIONED. NO S/S ACUTE DISTRESS. ISOLATION PRECAUTIONS OBSERVED BY ALL STAFF. SAFETY PRECAUTIONS IN PLACE. CALL LIGHT WITHIN REACH.
--- NOTE | 2020-03-31 23:00 | NUR ---
PATIENT RESTING COMFORTABLY IN BED. NO S/S ACUTE DISTRESS. CALL LIGHT WITHIN REACH. ISOLATION PRECAUTIONS OBSERVED BY ALL STAFF. SAFETY PRECAUTIONS IN PLACE.
[2020-04-01] VITALS: BP 132/66
--- NOTE | 2020-04-01 01:00 | NUR ---
MADE ROUNDS. PATIENT IS ASLEEP. NO S/S ACUTE DISTRESS. CALL LIGHT WITHIN REACH. ISOLATION PRECAUTIONS OBSERVED BY ALL STAFF. SAFETY PRECAUTIONS IN PLACE.
--- NOTE | 2020-04-01 03:30 | NUR ---
PATIENT IS ASLEEP. NO S/S ACUTE DISTRESS. CALL LIGHT WITHIN REACH. SAFETY PRECAUTIONS IN PLACE. ISOLATION PRECAUTIONS OBSERVED BY ALL STAFF.
[2020-04-01 04:00] VITALS: BP 158/75
[2020-04-01] MEDS: PIPERACILLIN/TAZOBACTAM 2.25 GM in DEXTROSE 5% 50 ML IV SCH ×3 (04:21→21:54)
--- NOTE | 2020-04-01 05:45 | NUR ---
PATIENT ACCIDENTLY PULLED OUT LEFT HAND 24G. NO INJURY TO PATIENT. NO S/S ACUTE DISTRESS. CALL LIGHT WITHIN REACH. SAFETY PRECAUTIONS IN PLACE. ISOLATION PRECAUTIONS OBSERVED BY ALL STAFF.
--- NOTE | 2020-04-01 07:10 | NUR ---
ENDORSED PATIENT TO AM SHIFT NURSE FOR CONTINUITY OF CARE.
--- NOTE | 2020-04-01 07:28 | NUR ---
REC'D REPORT FROM INVENTORY AND PRICING ASSOCIATE NURSE, PT STABLE, ON 4L NC, HAS PICC R. UA DOUBLE LUMEN. A/OX3, PT SEEMS CONFUSED, CALLING ME BY DIFFERENT NAME, INCOHERENT. CALL LIGHT WITHIN REACH.
[2020-04-01 08:00] VITALS: BP 178/60
[2020-04-01 08:42] LABS: BASOPHILS % (AUTO) 0.2 % (0.0-2.0); EOSINOPHILS % (AUTO) 0.3 % (0.0-4.0); HEMATOCRIT 25.2 % (36-52); HEMOGLOBIN 8.4 g/dL (12.0-18.0); LYMPHOCYTES # (AUTO) 0.6 K/uL (2.0-11.5); LYMPHOCYTES % (AUTO) 5.9 % (20.5-51.1); MEAN CORPUSCULAR HEMOGLOBIN 28 pg (27-31); MEAN CORPUSCULAR HGB CONC 33 g/dL (33-37); MEAN CORPUSCULAR VOLUME 85.2 fL (80-94); MONOCYTES # (AUTO) 0.3 K/uL (0.8-1.0); MONOCYTES % (AUTO) 3.6 % (1.7-9.3); NEUTROPHILS # (AUTO) 8.5 K/uL (1.8-7.7); PLATELET COUNT (AUTO) 143 K/uL (140-450); RED BLOOD CELL COUNT(AUTO) 2.96 MIL/uL (4.20-6.10); RED CELL DISTRIBUTION WIDTH 15.2 % (11.6-13.7); WHITE BLOOD COUNT (AUTO) 9.5 K/uL (4.8-10.8)
[2020-04-01 08:53] LABS: ANION GAP 11.6 (8-16); CARBON DIOXIDE 25.5 mmol/L (21-32); CHLORIDE 108 mmol/L (98-107); CREATININE 0.8 mg/dL (0.6-1.3); GLUCOSE 87 mg/dL (74-106); POTASSIUM 4.1 mmol/L (3.5-5.1); SODIUM SERUM 141 mmol/L (136-145)
[2020-04-01 09:07] LABS: MAGNESIUM 2.2 mg/dL (1.8-2.4); PHOSPHORUS 1.7 mg/dL (2.5-4.9)
[2020-04-01 10:06] LABS: UREA NITROGEN, BLOOD 21 mg/dL (7-18)
[2020-04-01] MEDS: METOPROLOL 50 MG TAB PO SCH ×2 (11:23→21:54)
[2020-04-01] MEDS: ZINC SULF 220 MG CAP PO SCH ×2 (11:23→21:54)
[2020-04-01] MEDS: DEXAMETHASONE 4 MG TAB PO SCH (11:24)
[2020-04-01] MEDS: ASCORBIC ACID 500 MG TAB PO SCH (11:24)
[2020-04-01] MEDS: hydrALAZINE 10 MG TAB PO SCH ×3 (11:25→17:00)
[2020-04-01] MEDS: VITAMIN D 400 IU TAB PO SCH (11:25)
--- NOTE | 2020-04-01 11:25 | NUR ---
ADMINISTERED MEDICATIONS PER MD ORDER, MEDICATIONS WERE CRUSHED WITH APPLESAUCE, PT TOLERATED PROCEDURE WELL
[2020-04-01 12:00] VITALS: BP 120/54
--- NOTE | 2020-04-01 13:14 | NUR ---
OXYGEN SATURATION CHECKED BY Charlie LEE RCP SUPPLEMENTAL OXYGEN AT 2 LPM VIA NC 92%
--- NOTE | 2020-04-01 13:15 | NUR ---
ADMINISTERED ABX PER MD ORDER, TOLERATED PROCEDURE WELL.
--- NOTE | 2020-04-01 13:16 | NUR ---
OXYGEN SATURATION CHECKED BY Charlie LEE RCP ROOM AIR 90%
[2020-04-01 16:00] VITALS: BP 109/67
--- NOTE | 2020-04-01 16:50 | NUR ---
PT RESTING, STABLE, SPOKE TO PT REGARDING LIVING CONDITION FOR DISCHARGE, STATES HE IS HOMELESS, DOES NOT HAVE A RESIDENCE TO GO TO.
[2020-04-01] MEDS: HYDROcodone/APAP 5/325 MG 1 TAB TAB PO PRN (16:54)
--- NOTE | 2020-04-01 16:58 | NUR ---
PT C/O SEVERE PAIN ON LEGS, ADMINISTERED ANALGESIC PER MD ORDER, PO MEDICATION WAS CRUSHED AND ADMINISTERED WITH APPLESAUCE.
--- NOTE | 2020-04-01 19:45 | NUR ---
RECEIVED PATIENT FROM AM SHIFT NURSE FOR CONTINUITY OF CARE. ABLE TO MAKE NEEDS KNOWN. RESPIRATIONS EVEN, UNLABORED. CONTINUES ON O2 3L VIA NC, O2SAT 91%. NO C/O PAIN. NO S/S ACUTE DISTRESS. SKIN WARM, DRY. IDA PICC LINE NOTED, INFUSING FLUIDS WELL. LEFT IJ GAYLA NOTED, DRESSING CLEAN/DRY AND INTACT. ABDOMEN SOFT, NONTENDER, NONDISTENDED. BOWEL SOUNDS ACTIVE X4 QUADRANTS. ORELLANA CATHETER PATENT WITH YELLOW URINE DRAINING TO GRAVITY. PLAN OF CARE DISCUSSED. CALL LIGHT WITHIN REACH. ISOLATION PRECAUTIONS OBSERVED. SAFETY PRECAUTIONS IN PLACE.
--- NOTE | 2020-04-01 19:50 | NUR ---
ENDORSED PT TO RECEPTIONIST NURSE NURSE, PT STABLE.
[2020-04-01 20:00] VITALS: BP 179/72
--- NOTE | 2020-04-01 20:11 | NUR ---
INFORMED OF ELEVATED BP BY DIRECTOR OF ACCOUNTS PAYABLE. PATIENT IS MOVING AROUND CAUSING ELEVATED BP. RECHECKED BP AT 150/71.
[2020-04-01] MEDS: ZOLPIDEM 5 MG TAB PO PRN (20:55)
--- NOTE | 2020-04-01 21:00 | NUR ---
DUE MEDS GIVEN. PATIENT RESTING COMFORTABLY IN BED. NO S/S ACUTE DISTRESS. CALL LIGHT WITHIN REACH. SAFETY PRECAUTIONS IN PLACE. ISOLATION PRECAUTIONS OBSERVED BY ALL STAFF.
[2020-04-01] MEDS: NACL 0.45% 1,000 ML IV SCH (21:53)
[2020-04-02] VITALS: BP 158/75
--- NOTE | 2020-04-02 00:10 | NUR ---
PATIENT SHAKING DUE TO HX OF [place]. RECHECKED BP 149/78..
--- NOTE | 2020-04-02 01:00 | NUR ---
MADE ROUNDS. PATIENT IS ASLEEP. NO S/S ACUTE DISTRESS. CALL LIGHT WITHIN REACH. SAFETY PRECAUTIONS IN PLACE. ISOLATION PRECAUTIONS OBSERVED BY ALL STAFF.
--- NOTE | 2020-04-02 03:30 | NUR ---
PATIENT IS EATING A SANDWICH AT THIS TIME. NO S/S ACUTE DISTRESS. CALL LIGHT WITHIN REACH. SAFETY PRECAUTIONS IN PLACE. ISOLATION PRECAUTIONS OBSERVED BY AL STAFF.
[2020-04-02 04:00] VITALS: BP 136/49
[2020-04-02] MEDS: PIPERACILLIN/TAZOBACTAM 2.25 GM in DEXTROSE 5% 50 ML IV SCH (04:23)
[2020-04-02] MEDS: LORazepam 2 MG/ML VIAL IM/IVP PRN (04:50)
--- NOTE | 2020-04-02 05:00 | NUR ---
DUE MEDS GIVEN. PATIENT IS AWAKE AND COMFORTABLE IN BED. NO S/S ACUTE DISTRESS. CALL LIGHT WITHIN REACH. ISOLATION PRECAUTIONS OBSERVED BY ALL STAFF. SAFETY PRECAUTIONS IN PLACE.
--- NOTE | 2020-04-02 07:10 | NUR ---
REC'D REPORT FROM HOUSE SUPERVISOR NURSE , PT STABLE. ON 4L NC.
--- NOTE | 2020-04-02 07:15 | NUR ---
ENDORSED TO AM SHIFT NURSE FOR CONTINUITY OF CARE.
[2020-04-02 08:38] LABS: BASOPHILS % (AUTO) 0.4 % (0.0-2.0); EOSINOPHILS % (AUTO) 0.2 % (0.0-4.0); HEMATOCRIT 24.6 % (36-52); HEMOGLOBIN 8.1 g/dL (12.0-18.0); LYMPHOCYTES # (AUTO) 0.5 K/uL (2.0-11.5); LYMPHOCYTES % (AUTO) 4.3 % (20.5-51.1); MEAN CORPUSCULAR HEMOGLOBIN 28 pg (27-31); MEAN CORPUSCULAR HGB CONC 33 g/dL (33-37); MEAN CORPUSCULAR VOLUME 85.1 fL (80-94); MONOCYTES # (AUTO) 0.3 K/uL (0.8-1.0); MONOCYTES % (AUTO) 2.4 % (1.7-9.3); NEUTROPHILS # (AUTO) 10.1 K/uL (1.8-7.7); NEUTROPHILS % (AUTO) 92.7 % (42.2-75.2); PLATELET COUNT (AUTO) 149 K/uL (140-450); RED BLOOD CELL COUNT(AUTO) 2.89 MIL/uL (4.20-6.10); RED CELL DISTRIBUTION WIDTH 15.8 % (11.6-13.7); WHITE BLOOD COUNT (AUTO) 10.9 K/uL (4.8-10.8)
[2020-04-02 09:49] LABS: ANION GAP 9.5 (8-16); CARBON DIOXIDE 25.6 mmol/L (21-32); CHLORIDE 104 mmol/L (98-107); CREATININE 0.7 mg/dL (0.6-1.3); GLUCOSE 146 mg/dL (74-106); POTASSIUM 4.1 mmol/L (3.5-5.1); SODIUM SERUM 135 mmol/L (136-145); UREA NITROGEN, BLOOD 23 mg/dL (7-18)
[2020-04-02 09:53] LABS: MAGNESIUM 1.9 mg/dL (1.8-2.4); PHOSPHORUS 1.3 mg/dL (2.5-4.9)
[2020-04-02] MEDS: ASCORBIC ACID 500 MG TAB PO SCH (11:40)
[2020-04-02] MEDS: DEXAMETHASONE 4 MG TAB PO SCH (11:41)
[2020-04-02] MEDS: VITAMIN D 400 IU TAB PO SCH (11:41)
[2020-04-02] MEDS: ZINC SULF 220 MG CAP PO SCH (11:41)
[2020-04-02] MEDS: METOPROLOL 50 MG TAB PO SCH (11:41)
[2020-04-02] MEDS: hydrALAZINE 10 MG TAB PO SCH ×3 (11:44→16:16)
[2020-04-02 12:00] VITALS: BP 171/71
--- NOTE | 2020-04-02 12:00 | NUR ---
ADMINISTERED MEDICATIONS PER MD ORDER, PO MEDICATIONS WERE CRUSHED AND MIXED WITH APPLESAUCE FOR PT'S CONVENIENCE. PT SOMEWHAT DISORIENTED, WAS UNDER THE IMPRESSION THE MONITOR CABLES WERE RESTRAINTS AND WOULD NOT MOVE, I RE ORIENTED PT AND EXPLAINED THE MONITOR, CABLES AND HAD HIM MOVE ARMS AROUND TO BE CONVINCED HE WAS NOT RESTRAINED, PT TOLERATED PROCEDURE WELL.
--- NOTE | 2020-04-02 13:35 | NUR ---
PT ENDORSEMENT RECEIVED AT THIS TIME. PT IS RESTING IN BED IN NO DISTRESS. WILL CONTINUE WITH POC.
[2020-04-02] MEDS: NACL 0.45% 1,000 ML IV SCH (15:12)
--- NOTE | 2020-04-02 15:20 | NUR ---
WATCHING TV ALL NEEDS MET. IVF REPLACED PT WAS SATTING 87-88% SO O2 WAS INCREASED TO 4L O2.
[2020-04-02 16:00] VITALS: BP 157/69
--- NOTE | 2020-04-02 16:50 | NUR ---
SCHEDULED MEDICATION GIVEN TOLERATED WELL.
--- NOTE | 2020-04-02 18:30 | NUR ---
04/02/20 RD FOLLOW UP COMPLETED. PLEASE REFER TO NUTRITION ASSESSMENT UNDER CARE ACTIVITY FOR ESTIMATED NUTRITIONAL NEEDS. 1. CONTINUE CURRENT DIET ORDERED 2. CONTINUE ENSURE BID FOR NUTRITION SUPPLEMENTATION 3. RD TO FOLLOW-UP IN 3-5 DAYS; MODERATE RISK. ISAMAR GUPTA, RD
--- NOTE | 2020-04-02 18:40 | NUR ---
PROVISION OF CARE PROVIDED. O2 WAS INCREASED TO 4L SATTING IN THE LOW 90'S. STABLE AT THIS TIME. ALL NEEDS MET.
--- NOTE | 2020-04-02 19:40 | NUR ---
PT ENDORSED TO MACHINE SEWER RN FOR CONTINUITY OF CARE. PT IS STABLE. ON 4L NC
[2020-04-03] MEDS: ZINC SULF 220 MG CAP PO SCH ×3 (04:01→20:44)
[2020-04-03] MEDS: METOPROLOL 50 MG TAB PO SCH ×3 (04:01→20:45)
--- NOTE | 2020-04-03 07:30 | NUR ---
RECEIVED ENDORSEMENT FROM BOX OFFICE ATTENDANT RN FOR CONTINUITY OF CARE. PT IS STABLE REMAINS ON 4L NC.
[2020-04-03 08:00] VITALS: BP 182/79
--- NOTE | 2020-04-03 09:30 | NUR ---
SCHEDULED MEDICATIONS GIVEN. AAOX [address] WITH LITTLE INSIGHT AND KNOWLEDGE OF TIME. PT WAS REORIENTED. TOLERATED CRUSHED MEDICATIONS ON APPLE SAUCE WELL. LUNG SOUND DIMINISHED. ABD IS FLAT SOFT AND NONTENDER WITH ACTIVE BS X4. SKIN INTACT. SAFETY MEASURES IN PLACE WILL CONTINUE WITH POC. RESTING IN BED ALL NEEDS MET.
[2020-04-03] MEDS: hydrALAZINE 10 MG TAB PO SCH ×3 (09:55→17:06)
[2020-04-03] MEDS: VITAMIN D 400 IU TAB PO SCH (09:55)
[2020-04-03] MEDS: ASCORBIC ACID 500 MG TAB PO SCH (09:55)
[2020-04-03] MEDS: DEXAMETHASONE 4 MG TAB PO SCH (09:56)
[2020-04-03 10:11] LABS: ANION GAP 10.2 (8-16); CARBON DIOXIDE 24.6 mmol/L (21-32); CHLORIDE 100 mmol/L (98-107); CREATININE 0.6 mg/dL (0.6-1.3); GLUCOSE 110 mg/dL (74-106); POTASSIUM 3.8 mmol/L (3.5-5.1); SODIUM SERUM 131 mmol/L (136-145); UREA NITROGEN, BLOOD 18 mg/dL (7-18)
[2020-04-03 10:17] LABS: BASOPHILS % (AUTO) 0.3 % (0.0-2.0); EOSINOPHILS # (AUTO) 0.1 K/uL (0-0.4); HEMATOCRIT 24.4 % (36-52); HEMOGLOBIN 8.2 g/dL (12.0-18.0); LYMPHOCYTES # (AUTO) 0.7 K/uL (2.0-11.5); LYMPHOCYTES % (AUTO) 5.5 % (20.5-51.1); MEAN CORPUSCULAR HEMOGLOBIN 28 pg (27-31); MEAN CORPUSCULAR HGB CONC 34 g/dL (33-37); MONOCYTES # (AUTO) 0.3 K/uL (0.8-1.0); NEUTROPHILS # (AUTO) 12.1 K/uL (1.8-7.7); NEUTROPHILS % (AUTO) 91.2 % (42.2-75.2); PLATELET COUNT (AUTO) 149 K/uL (140-450); WHITE BLOOD COUNT (AUTO) 13.3 K/uL (4.8-10.8)
[2020-04-03 10:39] LABS: MAGNESIUM 1.7 mg/dL (1.8-2.4); PHOSPHORUS 1.7 mg/dL (2.5-4.9)
[2020-04-03 12:00] VITALS: BP 146/69
--- NOTE | 2020-04-03 12:40 | NUR ---
SCHEDULED MEDICATION GIVEN, PROVISION OF CARE PROVIDED. ALL NEEDS MET.
--- NOTE | 2020-04-03 14:20 | NUR ---
PROVISION OF CARE PROVIDED. CONTINUES TO RECEIVE IVF. ALL NEEDS MET AT THIS TIME.
[2020-04-03] MEDS: NACL 0.45% 1,000 ML IV SCH (15:28)
[2020-04-03 16:00] VITALS: BP 159/65
[2020-04-03] MEDS ORDERED: MAG SULF 2000 MG/WATER PREMIX 50 ML IV SCH (16:00)
--- NOTE | 2020-04-03 16:37 | NUR ---
PT RECEIVING MG RIDER PER MD ORDER DUE TO MG 1.7 DR. THORPE NOTIFIED OF ABNORMAL LABS: NA 131, PH 1.7, CA 7.8, MG 1.7.
[2020-04-03] MEDS: HYDROcodone/APAP 5/325 MG 1 TAB TAB PO PRN ×2 (17:09→23:25)
--- NOTE | 2020-04-03 18:25 | NUR ---
PT RESTING IN BED WATCHING TV ALL NEEDS MET.
--- NOTE | 2020-04-03 19:15 | NUR ---
RECEIVED REPORT FROM DAY NEIL MELCHOR. PT AOX2 ON 4L NC. NO S/S RESPIRATORY DISTRESS. NO C/O PAIN AT THIS TIME. HAS IDA PICC INFUSING IVF ORDERED. SAFETY MEASURES IN PLACE. CALL LIGHT WITHIN REACH. WILL CONTINUE TO MONITOR
[2020-04-03 20:00] VITALS: BP 144/53
--- NOTE | 2020-04-03 20:55 | NUR ---
ADMINISTERED SCHEDULED MEDICATIONS. TOLERATED WELL. WILL CONTINUE TO MONITOR
--- NOTE | 2020-04-03 23:30 | NUR ---
PRN NORCO GIVEN FOR C/O GENERALIZED PAIN, TOLERATED WELL. WILL CONTINUE TO MONITOR
[2020-04-04] VITALS: BP 167/63
[2020-04-04] MEDS: NACL 0.45% 1,000 ML IV SCH (01:01)
[2020-04-04] MEDS: hydrALAZINE 20 MG/ML VIAL IVP PRN (01:25)
--- NOTE | 2020-04-04 02:30 | NUR ---
PT ASLEEP IN BED. NO S/S ACUTE DISTRESS NOTED. WILL CONTINUE TO MONITOR
[2020-04-04 04:00] VITALS: BP 143/39
[2020-04-04] MEDS: ACETAMINOPHEN 325 MG TAB PO PRN ×2 (06:17→15:43)
--- NOTE | 2020-04-04 07:03 | NUR ---
PT RESTING IN BED. NO S/S ACUTE RESPIRATORY DISTRESS. WILL ENDORSE TO DAY RN FOR CONTINUITY OF CARE. PT IS IN STABLE CONDITION
--- NOTE | 2020-04-04 07:35 | NUR ---
REC'D BEDSIDE ENDORSEMENT FROM NIGHTSHIFT NURSE. WILL PROCEED W/ CONTINUITY OF CARE.
[2020-04-04 08:00] VITALS: BP 132/79
[2020-04-04 08:34] LABS: BASOPHILS % (AUTO) 0.1 % (0.0-2.0); EOSINOPHILS # (AUTO) 0.1 K/uL (0-0.4); EOSINOPHILS % (AUTO) 0.4 % (0.0-4.0); HEMATOCRIT 28.7 % (36-52); HEMOGLOBIN 9.5 g/dL (12.0-18.0); LYMPHOCYTES # (AUTO) 0.8 K/uL (2.0-11.5); LYMPHOCYTES % (AUTO) 5.2 % (20.5-51.1); MEAN CORPUSCULAR HEMOGLOBIN 28 pg (27-31); MEAN CORPUSCULAR HGB CONC 33 g/dL (33-37); MEAN CORPUSCULAR VOLUME 85.2 fL (80-94); MONOCYTES # (AUTO) 0.3 K/uL (0.8-1.0); MONOCYTES % (AUTO) 1.8 % (1.7-9.3); NEUTROPHILS # (AUTO) 14.4 K/uL (1.8-7.7); NEUTROPHILS % (AUTO) 92.5 % (42.2-75.2); PLATELET COUNT (AUTO) 161 K/uL (140-450); RED BLOOD CELL COUNT(AUTO) 3.37 MIL/uL (4.20-6.10); RED CELL DISTRIBUTION WIDTH 15.9 % (11.6-13.7); WHITE BLOOD COUNT (AUTO) 15.5 K/uL (4.8-10.8)
[2020-04-04 08:52] LABS: MAGNESIUM 2.7 mg/dL (1.8-2.4); PHOSPHORUS 1.7 mg/dL (2.5-4.9)
[2020-04-04 09:23] LABS: ANION GAP 11.8 (8-16); CHLORIDE 98 mmol/L (98-107); CREATININE 0.6 mg/dL (0.6-1.3); GLUCOSE 95 mg/dL (74-106); POTASSIUM 3.8 mmol/L (3.5-5.1); SODIUM SERUM 130 mmol/L (136-145); UREA NITROGEN, BLOOD 17 mg/dL (7-18)
[2020-04-04] MEDS: ZINC SULF 220 MG CAP PO SCH ×2 (10:35→21:00)
[2020-04-04] MEDS: ASCORBIC ACID 500 MG TAB PO SCH (10:36)
[2020-04-04] MEDS: VITAMIN D 400 IU TAB PO SCH (10:37)
--- NOTE | 2020-04-04 10:37 | NUR ---
PER ARELIS CHEN TO HAVE PATIENT QUITON CATH REMOVED AND TIP SENT TO LAB FOR CULTURE.
[2020-04-04] MEDS: DEXAMETHASONE 4 MG TAB PO SCH (10:39)
[2020-04-04] MEDS: METOPROLOL 50 MG TAB PO SCH ×2 (10:40→21:00)
[2020-04-04] MEDS: hydrALAZINE 10 MG TAB PO SCH ×3 (10:40→18:14)
--- NOTE | 2020-04-04 10:53 | NUR ---
ADMINISTERED PRESCRIBED MEDS PER MD ORDER. PATIENT TOLERATED WELL. MEDICATION EDUCATION REINFORCEMENT NEEDED DUE TO LANGUAGE BARRIER. SAFETY MEASURES IN PLACE. WILL CONT TO MONITOR.
[2020-04-04 12:00] VITALS: BP 183/65
--- NOTE | 2020-04-04 12:00 | NUR ---
HOURLY ROUNDING. PATIENT RESTING IN BED. VISIBLE RISE AND FALL OF CHEST. NO SIGNS OF DISTRESS NOTED. SAFETY MEASURES IN PLACE. WILL CONT TO MONITOR
--- NOTE | 2020-04-04 14:00 | NUR ---
REC'D CALL FROM PATIENTS NIECE MOISES VIRGEN, WANTED TO KNOW STATUS OF PATIENT. ADVSD WILL NEED TO VERIFY HER ID AND THEN CALL BACK. CONTACT #[phone].
[2020-04-04] MEDS: PIPERACILLIN/TAZOBACTAM 3.375 GM in DEXTROSE 5% 50 ML IV SCH ×2 (15:44→21:00)
--- NOTE | 2020-04-04 15:58 | NUR ---
ADMINISTERED PRESCRIBED AND PRN PAIN MEDICATION PER MD ORDER. PATIENT TOLERATED WELL. REINFORCEMENT NEEDED. SAFETY MEASURES IN PLACE. WILL CONT TO MONITOR.
[2020-04-04 16:00] VITALS: BP 166/59
--- NOTE | 2020-04-04 17:20 | NUR ---
ENDORSED PATIENT TO NIGHTSHIFT NURSE FOR CONTINUITY OF CARE
--- NOTE | 2020-04-04 18:21 | NUR ---
ADMINISTERED PRESCRIBED MEDS PER MD ORDER. PATIENT TOLERATED WELL. SAFETY MEASURES IN PLACE. WILL CONT TO MONITOR.
--- NOTE | 2020-04-04 19:15 | NUR ---
RECEIVED PATIENT FROM AM SHIFT NURSE FOR CONTINUITY OF CARE. ABLE TO MAKE NEEDS KNOWN. RESPIRATIONS EVEN, UNLABORED. CONTINUES ON O2 4L VIA NC. O2SAT 90%. SKIN WARM, DRY. PICC TO RIGHT UPPER ARM PATENT/INTACT, INFUSING FLUIDS WELL. NO S/S ACUTE DISTRESS. NO C/O PAIN. ABDOMEN SOFT, NONTENDER, NONDISTENDED. BOWEL SOUNDS ACTIVE X4 QUADRANTS. ORELLANA CATHETER PATENT WITH YELLOW URINE DRAINING TO GRAVITY. PLAN OF CARE DISCUSSED. ISOLATION PRECAUTIONS OBSERVED. SAFETY PRECAUTIONS IN PLACE.
[2020-04-04 20:00] VITALS: BP 135/51
--- NOTE | 2020-04-04 21:00 | NUR ---
DUE MEDS GIVEN. PATIENT TURNED AND REPOSITIONED. FREQUENT ROUNDS BY ALL STAFF.
--- NOTE | 2020-04-04 23:55 | NUR ---
MADE ROUNDS. PATIENT IS ASLEEP. NO S/S ACUTE DISTRESS. CALL LIGHT WITHIN REACH. ISOLATION PRECAUTIONS OBSERVED. SAFETY PRECAUTIONS IN PLACE.
[2020-04-05] VITALS: BP 100/55
--- NOTE | 2020-04-05 02:00 | NUR ---
RECEIVED PT FROM NURSE PARIKH . PT IS AAOX4 , NID O2 SAT WNL . PICC LINE INTACT AND PATENT . C/O BODY PAIN -, WILL MEDICATE W/ TYLENOL . WILL CONT. TO MONITOR .
--- NOTE | 2020-04-05 02:00 | NUR ---
ENDORSED PATIENT TO NEIL CRYSTAL FOR CONTINUITY OF CARE.
[2020-04-05] MEDS: ACETAMINOPHEN 325 MG TAB PO PRN (03:58)
[2020-04-05 04:00] VITALS: BP 142/51
--- NOTE | 2020-04-05 04:00 | NUR ---
RESTING ON BED COMFORTABLY .
[2020-04-05] MEDS: PIPERACILLIN/TAZOBACTAM 3.375 GM in DEXTROSE 5% 50 ML IV SCH ×3 (05:36→22:27)
--- NOTE | 2020-04-05 07:30 | NUR ---
ENDORSED TO AM SHIFT - PT STABLE . I ENDORSE TO ANUM HE HAVE TO TELL THE DOCTOR THE PT IS HOMELESS -SO THE PLAN HOME O2 IS SEEMS COMPLICATED BECAUSE PT IS HOMELESS . ADDITION , HE HAVE TO REMIND DR. ZAPATA TO REMOVE THE QIUNTON CATH . THERE IS AN ORDER TO REMOVE IT . AND ALSO INFORM KIDNEY DOCTOR/S IF THE PT IS [place] DISCHARGED W/ ORELLANA CATH .
--- NOTE | 2020-04-05 07:36 | NUR ---
RECEIVED PT FROM PROPRIETARY TRADER NURSE . PT IS AAOX4 , ON 4L NC O2 SAT SATING AT 93%. RESPIRATIONS EVEN AND UNLABORED. SKIN IS INTACT. IDA PICC LINE INTACT AND PATENT . NO C/O BODY PAIN. PLAN OF CARE WAS DISCUSSED. SAFETY PRECAUTIONS IN PLACE. BED IN LOW POSITION AND CALL LIGHT WITHIN REACH. WILL CONT. TO MONITOR .
[2020-04-05 08:00] VITALS: BP 118/45
[2020-04-05 09:58] LABS: BASOPHILS % (AUTO) 0.1 % (0.0-2.0); EOSINOPHILS # (AUTO) 0.1 K/uL (0-0.4); EOSINOPHILS % (AUTO) 0.4 % (0.0-4.0); HEMATOCRIT 24.3 % (36-52); HEMOGLOBIN 8.1 g/dL (12.0-18.0); LYMPHOCYTES # (AUTO) 0.8 K/uL (2.0-11.5); LYMPHOCYTES % (AUTO) 5.8 % (20.5-51.1); MEAN CORPUSCULAR HEMOGLOBIN 29 pg (27-31); MEAN CORPUSCULAR HGB CONC 34 g/dL (33-37); MEAN CORPUSCULAR VOLUME 85.2 fL (80-94); MONOCYTES # (AUTO) 0.3 K/uL (0.8-1.0); MONOCYTES % (AUTO) 2.2 % (1.7-9.3); NEUTROPHILS # (AUTO) 12.4 K/uL (1.8-7.7); NEUTROPHILS % (AUTO) 91.5 % (42.2-75.2); PLATELET COUNT (AUTO) 171 K/uL (140-450); RED BLOOD CELL COUNT(AUTO) 2.85 MIL/uL (4.20-6.10); RED CELL DISTRIBUTION WIDTH 16.5 % (11.6-13.7); WHITE BLOOD COUNT (AUTO) 13.5 K/uL (4.8-10.8)
[2020-04-05] MEDS: ZINC SULF 220 MG CAP PO SCH ×2 (10:00→21:00)
[2020-04-05] MEDS: VITAMIN D 400 IU TAB PO SCH (10:00)
[2020-04-05] MEDS: DEXAMETHASONE 4 MG TAB PO SCH (10:01)
[2020-04-05] MEDS: ASCORBIC ACID 500 MG TAB PO SCH (10:01)
[2020-04-05] MEDS: hydrALAZINE 10 MG TAB PO SCH ×3 (10:03→18:02)
[2020-04-05] MEDS: METOPROLOL 50 MG TAB PO SCH ×2 (10:03→21:00)
--- NOTE | 2020-04-05 10:10 | NUR ---
ALL SCHEDULED MEDS GIVEN. PT IS STABLE NO DISTRESS NOTED. WILL CONTINUE TO MONITOR.
[2020-04-05 10:16] LABS: ANION GAP 14.4 (8-16); CARBON DIOXIDE 23.6 mmol/L (21-32); CHLORIDE 101 mmol/L (98-107); CREATININE 0.6 mg/dL (0.6-1.3); GLUCOSE 80 mg/dL (74-106); SODIUM SERUM 135 mmol/L (136-145); UREA NITROGEN, BLOOD 21 mg/dL (7-18)
[2020-04-05 10:31] LABS: MAGNESIUM 1.8 mg/dL (1.8-2.4); PHOSPHORUS 2.1 mg/dL (2.5-4.9)
[2020-04-05 12:00] VITALS: BP 144/45
--- NOTE | 2020-04-05 13:00 | NUR ---
PT IS STABLE. NO RESPIRATORY DISTRESS NOTED. WILL CONTINUE TO MONITOR.
[2020-04-05 16:00] VITALS: BP 137/50
[2020-04-05] MEDS: NACL 0.45% 1,000 ML IV SCH (16:14)
--- NOTE | 2020-04-05 18:02 | NUR ---
ALL SCHEDULED MEDS GIVEN. PT IS LAYING IN BED NO DISTRESS NOTED. WILL CONTINUE TO MONITOR
--- NOTE | 2020-04-05 19:40 | NUR ---
ENDORSED TO FIELD AUTOMOBILE ADJUSTER NURSE FOR CONTINUITY OF CARE
--- NOTE | 2020-04-05 19:45 | NUR ---
[facility], PT IN STABLE CONDITION.
[2020-04-05 20:00] VITALS: BP 136/50
--- NOTE | 2020-04-05 20:00 | NUR ---
PT IN BED RESTING WITH EYES CLOSED BUT AROUSABLE TO NAME AND LIGHT TOUCH. HE HAS 4 LITERS 02 VIA N/C. IV SITE IS RIGHT UPPER ARM PICC INTACT AND RUNNING D5 1/2 NS AT 35MLS/HR. PT WAS TURNED, CHANGED AND REPOSITIONED IN BED. V/S FOLLOWS: T 97.8 P 63 R 20 B/P 136/50 02 90% ON 4 LITERS VIA N/C. ALL ORDERED PRECAUTIONS IN PLACE.
--- NOTE | 2020-04-05 21:30 | NUR ---
PT GIVEN ORDERED AND SCHEDULED MEDS AT THIS TIME, INCLUDING ZOSYN WHICH WAS HUNG AND RUNNING ORDERED.
[2020-04-06] VITALS: BP 142/55
[2020-04-06 04:00] VITALS: BP 158/59
--- NOTE | 2020-04-06 04:00 | NUR ---
PT IN BED RESTING WITH EYES CLOSED HE IS ON 4 LITERS VIA N/C. PT WAS TURNED, CHANGED AND REPOSITIONED IN BED V/S FOLLOWS: T 98.2 P 66 R 20 B/P 158/59 02 95%.
[2020-04-06] MEDS: PIPERACILLIN/TAZOBACTAM 3.375 GM in DEXTROSE 5% 50 ML IV SCH ×3 (05:31→22:06)
[2020-04-06 08:00] VITALS: BP 135/99
--- NOTE | 2020-04-06 08:00 | NUR ---
RECEIVED REPORT FROM METAL ORGAN PIPE MAKER FOR CONTINUITY OF CARE. PATIENT ALERT AWAKE ORIENTED X2. NOT IN DISTRESS NOTED. INITIAL ASSESSMENT INITIATED. ON 4L NC SATURATION 90-95%. DENIES PAIN AND SOB. WITH ORELLANA CATHETER DRAINING TO YELLOWISH OUTPUT. CALL LIGHT WITHIN REACH. DROPLET PROTOCOL OBSERVED. NEEDS ATTENDED. WILL CONTINUE TO MONITOR.
[2020-04-06 08:55] LABS: ANION GAP 9.5 (8-16); CARBON DIOXIDE 27.7 mmol/L (21-32); CHLORIDE 101 mmol/L (98-107); CREATININE 0.6 mg/dL (0.6-1.3); GLUCOSE 85 mg/dL (74-106); POTASSIUM 4.2 mmol/L (3.5-5.1); SODIUM SERUM 134 mmol/L (136-145); UREA NITROGEN, BLOOD 21 mg/dL (7-18)
[2020-04-06 08:59] LABS: BASOPHILS % (AUTO) 0.2 % (0.0-2.0); EOSINOPHILS % (AUTO) 0.3 % (0.0-4.0); HEMATOCRIT 25.1 % (36-52); HEMOGLOBIN 8.4 g/dL (12.0-18.0); LYMPHOCYTES # (AUTO) 0.6 K/uL (2.0-11.5); LYMPHOCYTES % (AUTO) 5.2 % (20.5-51.1); MEAN CORPUSCULAR HEMOGLOBIN 28 pg (27-31); MEAN CORPUSCULAR HGB CONC 33 g/dL (33-37); MONOCYTES # (AUTO) 0.3 K/uL (0.8-1.0); MONOCYTES % (AUTO) 2.9 % (1.7-9.3); NEUTROPHILS # (AUTO) 10.9 K/uL (1.8-7.7); NEUTROPHILS % (AUTO) 91.4 % (42.2-75.2); PLATELET COUNT (AUTO) 196 K/uL (140-450); RED BLOOD CELL COUNT(AUTO) 2.96 MIL/uL (4.20-6.10); RED CELL DISTRIBUTION WIDTH 16.3 % (11.6-13.7); WHITE BLOOD COUNT (AUTO) 11.9 K/uL (4.8-10.8)
[2020-04-06 09:01] LABS: MAGNESIUM 1.9 mg/dL (1.8-2.4); PHOSPHORUS 2.2 mg/dL (2.5-4.9)
--- NOTE | 2020-04-06 09:30 | NUR ---
DUE MEDICATIONS GIVEN AND TOLERATED WELL.
[2020-04-06] MEDS: VITAMIN D 400 IU TAB PO SCH (09:33)
[2020-04-06] MEDS: METOPROLOL 50 MG TAB PO SCH ×2 (09:33→22:05)
[2020-04-06] MEDS: DEXAMETHASONE 4 MG TAB PO SCH (09:33)
[2020-04-06] MEDS: ZINC SULF 220 MG CAP PO SCH ×2 (09:34→22:05)
[2020-04-06] MEDS: hydrALAZINE 10 MG TAB PO SCH ×3 (09:34→18:20)
[2020-04-06] MEDS: ASCORBIC ACID 500 MG TAB PO SCH (09:34)
[2020-04-06] MEDS: NACL 0.45% 1,000 ML IV SCH (15:55)
[2020-04-06 16:00] VITALS: BP 127/65
--- NOTE | 2020-04-06 18:16 | NUR ---
NO SOB, RESTING IN BED. WILL ENDORSE TO THE SALES SERVICE MANAGER FOR CONTINUITY OF CARE.
--- NOTE | 2020-04-06 19:30 | NUR ---
RECEIVED REPORT FROM DAYSHIFT NURSE AT BEDSIDE FOR CONTINUITY OF CARE, PT IN STABLE CONDITION.
[2020-04-06 20:00] VITALS: BP 130/33
--- NOTE | 2020-04-06 20:30 | NUR ---
PT CAN TURN SELF. HE IS AWAKE AND ALERT LYING ON HIS BACK. PT HAS 4 LITERS VIA N/C. IV SITE IS RIGHT UPPER PICC INTACT AND RUNNING FLUIDS ORDERED. PT WAS TURNED, CHANGED AND REPOSITIONED IN BED.
--- NOTE | 2020-04-06 21:30 | NUR ---
ZOSYN HUNG AND RUNNING AT 100MLS/HR. ZINC SULFATE GIVEN ORDERED. HEPARIN AND LOPRESSOR GIVEN ORDERED. PT WAS TURNED, CHANGED AND REPOSITIONED IN BED.
--- NOTE | 2020-04-07 | NUR ---
PT TURNED, CHANGED AND REPOSITIONED IN BED, NO S/S OF PAIN OR DISTRESS NOTED. FLUIDS RUNNING ORDERED ALL ORDERED PRECAUTIONS IN PLACE. PT HAS NO S/S OF PAIN OR DISTRESS NOTED.
[2020-04-07 04:00] VITALS: BP 145/43
[2020-04-07] MEDS: PIPERACILLIN/TAZOBACTAM 3.375 GM in DEXTROSE 5% 50 ML IV SCH ×3 (05:00→22:14)
--- NOTE | 2020-04-07 05:45 | NUR ---
LOGAN HUNG AND RUNNING AT 100MLS/HR. ALL REQUESTED NEEDS ATTENDED AND ALL FALLS PROTOCOL IN PLACE.
--- NOTE | 2020-04-07 07:45 | NUR ---
RECEIVED PT FROM GARNETT ROOM WORKER NURSE . PT IS AAOX4 , ON 4L NC O2 SAT SATING AT 93%. RESPIRATIONS EVEN AND UNLABORED. SKIN IS INTACT, WARM, AND DRY. IDA PICC LINE INTACT AND PATENT . NO C/O BODY PAIN. PATIENT IS INCONTINENT. PLAN OF CARE WAS DISCUSSED. SAFETY PRECAUTIONS IN PLACE. BED IN LOW POSITION AND CALL LIGHT WITHIN REACH. WILL CONT. TO MONITOR .
[2020-04-07 07:52] LABS: BASOPHILS % (AUTO) 0.1 % (0.0-2.0); EOSINOPHILS # (AUTO) 0.2 K/uL (0-0.4); EOSINOPHILS % (AUTO) 1.3 % (0.0-4.0); HEMATOCRIT 24.5 % (36-52); HEMOGLOBIN 8.2 g/dL (12.0-18.0); LYMPHOCYTES # (AUTO) 0.7 K/uL (2.0-11.5); LYMPHOCYTES % (AUTO) 6.3 % (20.5-51.1); MEAN CORPUSCULAR HEMOGLOBIN 29 pg (27-31); MEAN CORPUSCULAR HGB CONC 33 g/dL (33-37); MEAN CORPUSCULAR VOLUME 85.3 fL (80-94); MONOCYTES # (AUTO) 0.3 K/uL (0.8-1.0); MONOCYTES % (AUTO) 2.6 % (1.7-9.3); NEUTROPHILS # (AUTO) 10.2 K/uL (1.8-7.7); NEUTROPHILS % (AUTO) 89.7 % (42.2-75.2); PLATELET COUNT (AUTO) 202 K/uL (140-450); RED BLOOD CELL COUNT(AUTO) 2.87 MIL/uL (4.20-6.10); RED CELL DISTRIBUTION WIDTH 17.1 % (11.6-13.7); WHITE BLOOD COUNT (AUTO) 11.4 K/uL (4.8-10.8)
[2020-04-07 08:23] LABS: ANION GAP 12.6 (8-16); CARBON DIOXIDE 25.3 mmol/L (21-32); CHLORIDE 106 mmol/L (98-107); CREATININE 0.7 mg/dL (0.6-1.3); GLUCOSE 109 mg/dL (74-106); POTASSIUM 3.9 mmol/L (3.5-5.1); SODIUM SERUM 140 mmol/L (136-145); UREA NITROGEN, BLOOD 20 mg/dL (7-18)
[2020-04-07] MEDS: ACETAMINOPHEN 325 MG TAB PO PRN (09:37)
[2020-04-07] MEDS: DEXAMETHASONE 4 MG TAB PO SCH (09:37)
[2020-04-07] MEDS: METOPROLOL 50 MG TAB PO SCH ×2 (09:38→22:14)
[2020-04-07] MEDS: ASCORBIC ACID 500 MG TAB PO SCH (09:38)
[2020-04-07] MEDS: hydrALAZINE 10 MG TAB PO SCH ×3 (09:38→16:41)
[2020-04-07] MEDS: VITAMIN D 400 IU TAB PO SCH (09:38)
[2020-04-07] MEDS: ZINC SULF 220 MG CAP PO SCH ×2 (09:39→22:14)
--- NOTE | 2020-04-07 09:50 | NUR ---
ALL SCHEDULED MEDS GIVEN. PT IS STABLE. NO DISTRESS NOTED. WILL CONTINUE TO MONITOR.
--- NOTE | 2020-04-07 11:30 | NUR ---
CHECKED ON PATIENT. PT IS STABLE. NO RESPIRATORY DISTRESS NOTED. WILL CONTINUE TO MONITOR.
--- NOTE | 2020-04-07 15:51 | NUR ---
COVID SWAB SPECIMEN COLLECTED. PT IS STABLE. NO DISTRESS NOTED. STILL AWAITING FOR PLACEMENT TO SNF. WILL CONTINUE TO MONITOR.
[2020-04-07] MEDS: NACL 0.45% 1,000 ML IV SCH ×2 (15:55→22:30)
[2020-04-07 16:00] VITALS: BP 136/49
[2020-04-07 17:41] VITALS: BP 136/49
--- NOTE | 2020-04-07 17:55 | NUR ---
SPOKE TO BERTRAND BARTH REGARDING TIME OF PICKUP OF PATIENT. SHE SAID AROUND [phone].
--- NOTE | 2020-04-07 19:45 | NUR ---
ENDORSED TO NEUROLOGY EPILEPSY PHYSICIAN NURSE FOR CONTINUITY OF CARE.
[2020-04-07 20:00] VITALS: BP 149/44
--- NOTE | 2020-04-07 21:14 | NUR ---
DISCHARGE INSTRUCTIONS PRINTED - PT DOES NOT SEEM TO UNDERSTAND TO SIGN. CALLED BERTRAND [phone] TO BOTH EXPLAIN DISCHARGE INSTRUCTIONS AND TO NOTIFY HER THAT PT IS READY FOR D/C. MESSAGE LEFT.
--- NOTE | 2020-04-08 02:00 | NUR ---
PT IN BED RESTING NO S/S OF P[AIN OR DISTRESS NOTED.
[2020-04-08 04:00] VITALS: BP 153/50
[2020-04-08] MEDS: PIPERACILLIN/TAZOBACTAM 3.375 GM in DEXTROSE 5% 50 ML IV SCH ×3 (06:28→22:09)
--- NOTE | 2020-04-08 07:30 | NUR ---
RECEIVED REPORT FROM RN, ASSESSED PT AT BEDSIDE, PT AWAKE ALERT ABLE TO LET NEEDS KNOWN, PICC TO R UPPER ARM, PATENT INTACT, INFUSING 1/2 NS, INFUSING WELL, PT ON 4LPM O2 NC, NO SOB NOTED, FC IN PLACE DRAINING TO GRAVITY, INITIAL ASSESSMENT DONE, ALL SAFETY PRECAUTION MET, CALL LIGHT WITHIN REACH, WILL CONTINUE TO MONITOR.
[2020-04-08 08:00] VITALS: BP 127/89
[2020-04-08] MEDS: METOPROLOL 50 MG TAB PO SCH ×2 (09:00→22:08)
[2020-04-08 09:27] LABS: BASOPHILS % (AUTO) 0.1 % (0.0-2.0); EOSINOPHILS % (AUTO) 0.5 % (0.0-4.0); HEMATOCRIT 24.3 % (36-52); LYMPHOCYTES # (AUTO) 0.6 K/uL (2.0-11.5); LYMPHOCYTES % (AUTO) 6.1 % (20.5-51.1); MEAN CORPUSCULAR HEMOGLOBIN 28 pg (27-31); MEAN CORPUSCULAR HGB CONC 33 g/dL (33-37); MONOCYTES # (AUTO) 0.4 K/uL (0.8-1.0); MONOCYTES % (AUTO) 4.1 % (1.7-9.3); NEUTROPHILS # (AUTO) 8.3 K/uL (1.8-7.7); NEUTROPHILS % (AUTO) 89.2 % (42.2-75.2); PLATELET COUNT (AUTO) 214 K/uL (140-450); RED BLOOD CELL COUNT(AUTO) 2.82 MIL/uL (4.20-6.10); RED CELL DISTRIBUTION WIDTH 16.9 % (11.6-13.7); WHITE BLOOD COUNT (AUTO) 9.3 K/uL (4.8-10.8)
[2020-04-08] MEDS: hydrALAZINE 10 MG TAB PO SCH ×3 (09:42→17:47)
[2020-04-08] MEDS: VITAMIN D 400 IU TAB PO SCH (09:43)
[2020-04-08] MEDS: ZINC SULF 220 MG CAP PO SCH ×2 (09:43→21:00)
[2020-04-08] MEDS: ACETAMINOPHEN 325 MG TAB PO PRN (09:43)
[2020-04-08] MEDS: DEXAMETHASONE 4 MG TAB PO SCH (09:43)
[2020-04-08] MEDS: ASCORBIC ACID 500 MG TAB PO SCH (09:43)
--- NOTE | 2020-04-08 09:43 | NUR ---
PT C.O MILD PAIN, TYLENOL GIVEN, PT TOLERATED WELL, WILL CONTINUE TO MONITOR.
[2020-04-08 10:10] LABS: ANION GAP 12.6 (8-16); CARBON DIOXIDE 24.6 mmol/L (21-32); CHLORIDE 100 mmol/L (98-107); CREATININE 0.7 mg/dL (0.6-1.3); GLUCOSE 79 mg/dL (74-106); POTASSIUM 4.2 mmol/L (3.5-5.1); SODIUM SERUM 133 mmol/L (136-145); UREA NITROGEN, BLOOD 20 mg/dL (7-18)
[2020-04-08 16:00] VITALS: BP 146/57
--- NOTE | 2020-04-08 19:30 | NUR ---
RECEIVED REPORT FOR ENDORSEMENT FOR CONTINUITY OF CARE, PT IN STABLE CONDITION.
--- NOTE | 2020-04-08 19:30 | NUR ---
ENDORSED PT TO SPRING INTERNSHIP NURSE GEOVANNA FOR CONTINUOUS OF CARE.
[2020-04-08 20:00] VITALS: BP 165/54
--- NOTE | 2020-04-08 20:00 | NUR ---
PT IN BED ON 4 LITERS N/C NO S/S OF PAIN OR DISTRESS NOTED. HE IS ALERT AND AWAKE RIGHT UPPER ARM PICC INTACT AND RUNNING 1/2NS AT 35MLS/H4. PT TURNED AND REPOSITIONED IN BED, ALL ORDERED PRECAUTIONS IN PLACE. ALL REQUESTED NEEDS ATTENDED BY STAFF.
--- NOTE | 2020-04-08 21:30 | NUR ---
PT GIVEN ORDERED AND SCHEDULED MEDS AT THIS TIME. ZOSYN HUNG AND IS RUNNING AT 100MLS/HR. PT ALSO GIVEN LOPRESSOR AND HEPARIN SHOT, EDUCATION REGARDING MEDICATIONS PROVIDED AT BEDSIDE. REINFORCEMENT FOR EDUCATION NEEDED. PT DECLINED ZINC OXIDE. EDUCATION PROVIDED. ALL REQUESTED NEEDS ATTENDED BY STAFF..
--- NOTE | 2020-04-09 00:20 | NUR ---
PT IN BED RESTING WITH EYES CLOSED, NO S/S OF PAIN OR DISTRESS NOTED.
--- NOTE | 2020-04-09 00:30 | NUR ---
PT IN BED NO S/S OF PAIN OR DISTRESS NOTED, 02 AT 4 LITERS, PT TURNED, CHANGED AND REPOSITIONED IN BED. ALL REQUESTED NEEDS ATTENDED BY STAFF.
--- NOTE | 2020-04-09 04:00 | NUR ---
PT IN BED, HE WAS TURNED, CHANGED AND REPOSITIONED IN BED.
--- NOTE | 2020-04-09 05:40 | NUR ---
LOGAN HUNG AND RUNNING ORDERED. ALL REQUESTED NEEDS ATTENDED.
--- NOTE | 2020-04-09 07:30 | NUR ---
RECEIVED PT FROM HANDKERCHIEF MAKER NURSE . PT IS AAOX4 , ON 4L NC O2 SAT SATING AT 93%. RESPIRATIONS EVEN AND UNLABORED. SKIN IS INTACT, WARM, AND DRY. IDA PICC LINE INTACT AND PATENT . NO C/O BODY PAIN. PATIENT IS INCONTINENT. PLAN OF CARE WAS DISCUSSED. SAFETY PRECAUTIONS IN PLACE. BED IN LOW POSITION AND CALL LIGHT WITHIN REACH. WILL CONT. TO MONITOR .
[2020-04-09] MEDS: PIPERACILLIN/TAZOBACTAM 3.375 GM in DEXTROSE 5% 50 ML IV SCH ×2 (07:58→14:06)
[2020-04-09 08:00] VITALS: BP 125/38
[2020-04-09 08:49] LABS: BASOPHILS % (AUTO) 0.4 % (0.0-2.0); EOSINOPHILS % (AUTO) 0.3 % (0.0-4.0); HEMATOCRIT 23.8 % (36-52); HEMOGLOBIN 7.9 g/dL (12.0-18.0); LYMPHOCYTES # (AUTO) 0.5 K/uL (2.0-11.5); MEAN CORPUSCULAR HEMOGLOBIN 28 pg (27-31); MEAN CORPUSCULAR HGB CONC 33 g/dL (33-37); MEAN CORPUSCULAR VOLUME 85.6 fL (80-94); MONOCYTES # (AUTO) 0.4 K/uL (0.8-1.0); NEUTROPHILS # (AUTO) 8.2 K/uL (1.8-7.7); NEUTROPHILS % (AUTO) 89.3 % (42.2-75.2); PLATELET COUNT (AUTO) 228 K/uL (140-450); RED BLOOD CELL COUNT(AUTO) 2.78 MIL/uL (4.20-6.10); RED CELL DISTRIBUTION WIDTH 16.8 % (11.6-13.7); WHITE BLOOD COUNT (AUTO) 9.2 K/uL (4.8-10.8)
[2020-04-09 09:22] LABS: ANION GAP 12.9 (8-16); CARBON DIOXIDE 23.3 mmol/L (21-32); CHLORIDE 100 mmol/L (98-107); CREATININE 0.7 mg/dL (0.6-1.3); GLUCOSE 79 mg/dL (74-106); POTASSIUM 4.2 mmol/L (3.5-5.1); SODIUM SERUM 132 mmol/L (136-145); UREA NITROGEN, BLOOD 21 mg/dL (7-18)
[2020-04-09] MEDS: DEXAMETHASONE 4 MG TAB PO SCH (09:40)
[2020-04-09] MEDS: ZINC SULF 220 MG CAP PO SCH ×2 (09:41→20:58)
[2020-04-09] MEDS: VITAMIN D 400 IU TAB PO SCH (09:41)
[2020-04-09] MEDS: METOPROLOL 50 MG TAB PO SCH ×2 (09:41→20:57)
[2020-04-09] MEDS: hydrALAZINE 10 MG TAB PO SCH ×3 (09:42→17:55)
[2020-04-09] MEDS: ACETAMINOPHEN 325 MG TAB PO PRN (09:42)
[2020-04-09] MEDS: ASCORBIC ACID 500 MG TAB PO SCH (09:42)
--- NOTE | 2020-04-09 09:50 | NUR ---
ALL SCHEDULED MEDS GIVEN. PT IS STABLE. NO DISTRESS NOTED. WILL CONTINUE TO MONITOR.
--- NOTE | 2020-04-09 11:25 | NUR ---
SPOKE TO APS OVER THE PHONE REGARDING PATIENT'S TRANSFER TO SNF. APS MENTIONED THAT THEY ONLY RECEIVED A REFERRAL FOR PATIENT TO GO TO SNF. TRANSFERRED THE CALL TO CASE MANAGEMENT FOR MORE FURTHER DISCUSSION ABOUT PLACEMENT TO SNF.
[2020-04-09 12:00] VITALS: BP 119/48
--- NOTE | 2020-04-09 14:15 | NUR ---
PT IS STABLE. NO RESPIRATORY DISTRESS NOTED. WILL CONTINUE TO MONITOR.
[2020-04-09] MEDS: NACL 0.45% 1,000 ML IV SCH ×2 (15:32→20:57)
[2020-04-09 16:00] VITALS: BP 123/45
--- NOTE | 2020-04-09 17:55 | NUR ---
ALL SCHEDULED MEDS GIVEN. PT IS STABLE. NO DISTRESS NOTED. WILL CONTINUE TO MONITOR.
--- NOTE | 2020-04-09 19:23 | NUR ---
ENDORSED TO MUSICAL INSTRUMENT SUPERVISOR NURSE FOR CONTINUITY OF CARE. WILL CONTINUE TO MONITOR.
--- NOTE | 2020-04-10 07:25 | NUR ---
RECEIVED REPORT FROM LOGGING RAFTER LABORER RN AT THIS TIME. PT LAYING IN BED. DENIES DISTRESS. SAFETY MEASURES IN PLACE. WILL CONTINUE WITH POC
[2020-04-10 08:00] VITALS: BP 130/84
[2020-04-10] MEDS: hydrALAZINE 10 MG TAB PO SCH ×3 (08:49→16:33)
[2020-04-10] MEDS: DEXAMETHASONE 4 MG TAB PO SCH (08:49)
[2020-04-10] MEDS: METOPROLOL 50 MG TAB PO SCH ×2 (08:49→22:18)
[2020-04-10] MEDS: VITAMIN D 400 IU TAB PO SCH (08:49)
[2020-04-10] MEDS: ASCORBIC ACID 500 MG TAB PO SCH (08:50)
[2020-04-10] MEDS: ZINC SULF 220 MG CAP PO SCH ×2 (08:50→22:18)
--- NOTE | 2020-04-10 08:50 | NUR ---
SCHEDULED MEDICATIONS GIVEN TOLERATED WELL. PT HAS TREMORS TO UPPER EXTREMITIES WHEN ARMS ARE NOT RESTING, WHEN RESTING NO TREMORS NOTICED PT HAS HISTORY OF [place]. PT AWAKE AND ALERT ORIENTED X 3. COMMUNICATES EFFECTIVELY IN IRISH. CALL LIGHT AT REACH. PT ASSISTED WITH SETTING UP TO EAT BREAKFAST. LUNG SOUNDS DIMINISHED ABD IS SOFT AND NONTENDER WITH ACTIVE BS X4. CALL LIGHT WITHIN REACH. WILL CONTINUE WITH POC.
--- NOTE | 2020-04-10 10:20 | NUR ---
PT RESTING IN BED PROVISION OF CARE PROVIDED.
--- NOTE | 2020-04-10 12:30 | NUR ---
SCHEDULED MEDICATIONS GIVEN TOLERATED WELL, RECEIVING IVF WITH NO ISSUES REFUSING LUNCH. STATING "I AM NOT HUNGRY" PT ENCOURAGED TO EAT.
[2020-04-10] MEDS ORDERED: NACL 0.9% 500 ML IV SCH (14:40)
--- NOTE | 2020-04-10 14:40 | NUR ---
PT WAS GIVEN 500ML NS BOLUS PER MD ORDER TOLERATED WELL.
[2020-04-10] MEDS: NACL 0.9% 1,000 ML IV SCH (15:25)
[2020-04-10 16:00] VITALS: BP 132/54
--- NOTE | 2020-04-10 16:40 | NUR ---
PT CONTINUES TO RECEIVE IVF PT STATING HE NO LONGER WANTS TO EAT STATING HE DOESN'T WANT TO TRY ANYMORE. PT ENCOURAGED TO EAT. PT STATES HE WILL TRY. SCHEDULED MEDICATION GIVEN.
--- NOTE | 2020-04-10 16:53 | NUR ---
04/10/20 RD FOLLOW UP COMPLETED PLEASE REFER TO NUTRITION ASSESSMENT UNDER CARE ACTIVITY FOR ESTIMATED NUTRITIONAL NEEDS. 1. CONTINUE MECHANICAL SOFT DIET TOLERATED 2. CONTINUE ENSURE BID 3. ENCOURAGE PO INTAKE >75% 4. RD TO FOLLOW-UP 3-5 DAYS, MODERATE RISK MANFRED SERRATO, RD
--- NOTE | 2020-04-10 18:46 | NUR ---
PT CONTINUES TO REFUSE TO EAT STATING I AM NOT HUNGRY WILL CONTINUE TO MONITOR.
--- NOTE | 2020-04-10 19:20 | NUR ---
PT ENDORSED TO FOOD EQUIPMENT SERVICE TECHNICIAN RN FOR CONTINUITY OF CARE. PT IS STABLE RESTING WITH EYES CLOSED. DR. JAMISON NOTIFIED OF NO APPETITE NOT EATING
--- NOTE | 2020-04-10 19:33 | NUR ---
ROUNDING TIME: FIRST ROUNDING OBSERVATIONS: PT. LOCATION: IN BED, SUPINE, W O2 ON ORDERED PT. CONDITION: PT APPEARS TO BE ASLEEP, RESPIRATIONS REGULAR, NO INJURY OR ADVERSE CHANGE IN BASELINE OBSERVED. CONDITION STABLE.
[2020-04-11] MEDS: NACL 0.9% 1,000 ML IV SCH (07:01)
[2020-04-11 08:00] VITALS: BP 153/67
[2020-04-11] MEDS: ASCORBIC ACID 500 MG TAB PO SCH (09:22)
[2020-04-11] MEDS: METOPROLOL 50 MG TAB PO SCH ×2 (09:23→21:05)
[2020-04-11] MEDS: hydrALAZINE 10 MG TAB PO SCH ×3 (09:23→17:06)
[2020-04-11] MEDS: VITAMIN D 400 IU TAB PO SCH (09:24)
[2020-04-11] MEDS: DEXAMETHASONE 4 MG TAB PO SCH (09:24)
[2020-04-11] MEDS: ZINC SULF 220 MG CAP PO SCH ×2 (09:43→21:05)
--- NOTE | 2020-04-11 09:43 | NUR ---
ADMINISTERED PRESCRIBED MEDS PER MD ORDER. PATIENT TOLERATED WELL. MEDICATION EDUCATION REINFORCEMENT NEEDED DUE TO LANGUAGE BARRIER. SAFETY MEASURES IN PLACE. WILL CONT TO MONITOR.
[2020-04-11 10:24] LABS: ANION GAP 12.8 (8-16); ASPARTATE AMINOTRANSFERASE 33 U/L (15-37); CARBON DIOXIDE 24.2 mmol/L (21-32); CHLORIDE 109 mmol/L (98-107); CREATININE 0.6 mg/dL (0.6-1.3); GLUCOSE 92 mg/dL (74-106); SODIUM SERUM 142 mmol/L (136-145); TOTAL BILIRUBIN 0.5 mg/dL (0.0-1.0); UREA NITROGEN, BLOOD 22 mg/dL (7-18)
--- NOTE | 2020-04-11 14:40 | NUR ---
PATIENT BP 165/70, PULSE 67; ADMINISTERED PRESCRIBED MEDS PER MD ORDER. PATIENT TOLERATED WELL. MEDICATION EDUCATION REINFORCEMENT NEEDED. PATIENT BEING TOILETED AND TURNED BY BLOOD AND PLASMA LABORATORY ASSISTANT. SAFETY MEASURES IN PLACE. WILL CONT TO MONITOR.
[2020-04-11 16:00] VITALS: BP 156/60
--- NOTE | 2020-04-11 17:19 | NUR ---
ADMINISTERED PRESCRIBED MED PER MD ORDER. PATIENT TOLERATED WELL. SAFETY MEASURES IN PLACE. WILL CONT TO MONITOR.
--- NOTE | 2020-04-11 19:25 | NUR ---
RECEIVED ENDORSEMENT FROM AM SHIFT RN. PT IS AOX2, ON 4L NC, O2 SAT WNL, NO SOB, NO DISTRESS, SAFETY MEASURES IN PLACE PLAN OF CARE DISCUSSED, CALL LIGHT WITHIN REACH.
[2020-04-11 20:00] VITALS: BP 132/37
[2020-04-11] MEDS: ACETAMINOPHEN 325 MG TAB PO PRN (21:22)
--- NOTE | 2020-04-11 21:26 | NUR ---
PT AWAKE, HOB ELEVATED, DUE MEDS GIVEN ORDERED, TOLERATED WELL, KEPT COMFORTABLE, CALL LIGHT WITHIN REACH.
[2020-04-12 04:00] VITALS: BP 150/63
--- NOTE | 2020-04-12 07:50 | NUR ---
REC'D REPORT FROM WWE WRESTLER NURSE, PT STABLE. 4L NC.
--- NOTE | 2020-04-12 07:50 | NUR ---
PT IS STABLE, NO SOB, NO DISTRESS, NO ACUTE CHANGES THE WHOLE SHIFT, BEDSIDE ENDORSEMENT GIVEN TO AM SHIFT RN FOR CONTINUITY OF CARE.
[2020-04-12 08:40] LABS: BASOPHILS % (AUTO) 0.2 % (0.0-2.0); EOSINOPHILS % (AUTO) 0.8 % (0.0-4.0); HEMATOCRIT 27.7 % (36-52); LYMPHOCYTES # (AUTO) 0.4 K/uL (2.0-11.5); LYMPHOCYTES % (AUTO) 5.9 % (20.5-51.1); MEAN CORPUSCULAR HEMOGLOBIN 28 pg (27-31); MEAN CORPUSCULAR HGB CONC 32 g/dL (33-37); MEAN CORPUSCULAR VOLUME 85.7 fL (80-94); MONOCYTES # (AUTO) 0.3 K/uL (0.8-1.0); MONOCYTES % (AUTO) 5.5 % (1.7-9.3); NEUTROPHILS # (AUTO) 5.2 K/uL (1.8-7.7); NEUTROPHILS % (AUTO) 87.6 % (42.2-75.2); PLATELET COUNT (AUTO) 246 K/uL (140-450); RED BLOOD CELL COUNT(AUTO) 3.24 MIL/uL (4.20-6.10); RED CELL DISTRIBUTION WIDTH 17.1 % (11.6-13.7)
[2020-04-12] MEDS: hydrALAZINE 10 MG TAB PO SCH ×3 (08:46→17:00)
[2020-04-12] MEDS: METOPROLOL 50 MG TAB PO SCH ×2 (08:46→22:14)
[2020-04-12] MEDS: DEXAMETHASONE 4 MG TAB PO SCH (08:46)
[2020-04-12] MEDS: VITAMIN D 400 IU TAB PO SCH (08:46)
[2020-04-12] MEDS: ZINC SULF 220 MG CAP PO SCH ×2 (08:47→22:14)
[2020-04-12] MEDS: ASCORBIC ACID 500 MG TAB PO SCH (08:47)
[2020-04-12 09:26] LABS: ALBUMIN 2.1 g/dL (3.4-5.0); ANION GAP 13.1 (8-16); ASPARTATE AMINOTRANSFERASE 30 U/L (15-37); CHLORIDE 105 mmol/L (98-107); CREATININE 0.6 mg/dL (0.6-1.3); GLUCOSE 89 mg/dL (74-106); POTASSIUM 4.1 mmol/L (3.5-5.1); SODIUM SERUM 139 mmol/L (136-145); TOTAL BILIRUBIN 0.4 mg/dL (0.0-1.0); UREA NITROGEN, BLOOD 21 mg/dL (7-18)
[2020-04-12 16:00] VITALS: BP 130/46
[2020-04-12] MEDS: HYDROcodone/APAP 5/325 MG 1 TAB TAB PO PRN (18:05)
--- NOTE | 2020-04-12 19:30 | NUR ---
RECEIVED ENDORSEMENT FROM AM SHIFT RN. PT IS AOX2, ON 5L NC, O2 SAT WNL, NO SOB, NO DISTRESS, SAFETY MEASURES IN PLACE PLAN OF CARE DISCUSSED, CALL LIGHT WITHIN REACH.
--- NOTE | 2020-04-12 19:30 | NUR ---
ENDORSED PT TO CISCO ADMINISTRATOR NURSE, PT STABLE, 5L NC
[2020-04-12 20:00] VITALS: BP 134/60
--- NOTE | 2020-04-12 22:25 | NUR ---
PT AWAKE, HOB ELEVATED, DUE MEDS GIVEN ORDERED, TOLERATED WELL, CALL LIGHT WITHIN REACH.
--- NOTE | 2020-04-13 02:00 | NUR ---
D/C ORELLANA CATH ORDERED, TOLERATED WELL, CALL LIGHT WITHIN REACH.
[2020-04-13 04:00] VITALS: BP 133/61
--- NOTE | 2020-04-13 07:20 | NUR ---
REC'D REPORT FROM CORPORATE ADMINISTRATIVE ASSISTANT NURSE, PT STABLE. 5L NC.
--- NOTE | 2020-04-13 07:44 | NUR ---
PT IS STABLE, NO DISTRESS, NO SOB, NO ACUTE CHANGES THE WHOLE SHIFT, ENDORSED TO AM SHIFT RN FOR CONTINUITY OF CARE.
[2020-04-13 08:20] LABS: BASOPHILS % (AUTO) 0.1 % (0.0-2.0); EOSINOPHILS % (AUTO) 0.6 % (0.0-4.0); HEMATOCRIT 26.9 % (36-52); HEMOGLOBIN 8.8 g/dL (12.0-18.0); LYMPHOCYTES # (AUTO) 0.6 K/uL (2.0-11.5); MEAN CORPUSCULAR HEMOGLOBIN 28 pg (27-31); MEAN CORPUSCULAR HGB CONC 33 g/dL (33-37); MEAN CORPUSCULAR VOLUME 85.6 fL (80-94); MONOCYTES # (AUTO) 0.4 K/uL (0.8-1.0); MONOCYTES % (AUTO) 6.1 % (1.7-9.3); NEUTROPHILS # (AUTO) 5.8 K/uL (1.8-7.7); PLATELET COUNT (AUTO) 266 K/uL (140-450); RED BLOOD CELL COUNT(AUTO) 3.15 MIL/uL (4.20-6.10); WHITE BLOOD COUNT (AUTO) 6.9 K/uL (4.8-10.8)
[2020-04-13] MEDS: METOPROLOL 50 MG TAB PO SCH ×2 (09:00→20:22)
[2020-04-13 09:14] LABS: ANION GAP 14.8 (8-16); CARBON DIOXIDE 25.3 mmol/L (21-32); CHLORIDE 104 mmol/L (98-107); CREATININE 0.6 mg/dL (0.6-1.3); GLUCOSE 91 mg/dL (74-106); POTASSIUM 4.1 mmol/L (3.5-5.1); SODIUM SERUM 140 mmol/L (136-145); UREA NITROGEN, BLOOD 21 mg/dL (7-18)
[2020-04-13] MEDS: ASCORBIC ACID 500 MG TAB PO SCH (09:28)
[2020-04-13] MEDS: hydrALAZINE 10 MG TAB PO SCH ×4 (09:28→20:15)
[2020-04-13] MEDS: ZINC SULF 220 MG CAP PO SCH ×2 (09:28→20:22)
[2020-04-13] MEDS: VITAMIN D 400 IU TAB PO SCH (09:29)
[2020-04-13] MEDS: DEXAMETHASONE 4 MG TAB PO SCH (09:29)
[2020-04-13] MEDS: HYDROcodone/APAP 5/325 MG 1 TAB TAB PO PRN ×2 (09:33→20:15)
--- NOTE | 2020-04-13 09:45 | NUR ---
ADMINISTERED MEDICATIONS PER MD PROTOCOL, PT TOLERATED PROCEDURE WELL
[2020-04-13 10:09] LABS: LYMPHOCYTES % (AUTO) 8.4 % (20.5-51.1); NEUTROPHILS % (AUTO) 84.8 % (42.2-75.2)
--- NOTE | 2020-04-13 14:10 | NUR ---
OBTAINED COVID PCR NASAL SWAB, BILATERAL NARES, PT TOLERATED PROCEDURE WELL. DROPPED OFF SPECIMEN TO LAB.
[2020-04-13 16:00] VITALS: BP 122/53
--- NOTE | 2020-04-13 19:39 | NUR ---
ENDORSED PT TO LIGHT COIL WINDER NURSE, PT STABLE. 5L NC.
--- NOTE | 2020-04-13 19:40 | NUR ---
RECEIVED PATIENT FROM AM SHIFT NURSE FOR CONTINUITY OF CARE. ABLE TO MAKE SIMPLE NEEDS KNOWN. RESPIRATIONS EVEN, UNLABORED. CONTINUES ON O2 5L VIA OXYMIZER, O2SAT 89%. NO C/O PAIN. NO S/S ACUTE DISTRESS. ABDOMEN SOFT, NONTENDER. BOWEL SOUNDS ACTIVE X4 QUADRANTS. PATIENT IS INCONTINENT OF B/B. PLAN OF CARE. ISOLATION PRECAUTIONS OBSERVED BY ALL STAFF. SAFETY PRECAUTIONS IN PLACE. CALL LIGHT WITHIN REACH.
[2020-04-13 20:00] VITALS: BP 121/65
--- NOTE | 2020-04-13 23:55 | NUR ---
MD MADE AWARE OF DECREASE IN OUTPUT S/P ORELLANA CATHETER REMOVAL. STRAIGHT CATHETERIZED PATIENT WITH 400 ML OF CLEAR YELLOW URINE OUT. NO DISTRESS VERBALIZED FROM PATIENT.
[2020-04-14] MEDS ORDERED: ROCURONIUM 50 MG/5 ML VIAL IV ONE
--- NOTE | 2020-04-14 01:00 | NUR ---
MADE ROUNDS. PATIENT IS ASLEEP. NO S/S ACUTE DISTRESS. CALL LIGHT WITHIN REACH. SAFETY PRECAUTIONS IN PLACE. ISOLATION PRECAUTIONS OBSERVED BY ALL STAFF.
--- NOTE | 2020-04-14 03:20 | NUR ---
PATIENT IS ASLEEP. NO S/S ACUTE DISTRESS. CALL LIGHT WITHIN REACH. SAFETY PRECAUTIONS IN PLACE. ISOLATION PRECAUTIONS OBSERVED BY ALL STAFF.
--- NOTE | 2020-04-14 05:40 | NUR ---
PATIENT TURNED AND REPOSITIONED. NO S/S ACUTE DISTRESS. CALL LIGHT WITHIN REACH.
--- NOTE | 2020-04-14 07:29 | NUR ---
ENDORSED PATIENT TO AM SHIFT NURSE FOR CONTINUITY OF CARE.
--- NOTE | 2020-04-14 07:30 | NUR ---
RECEIVED REPORT FROM NIGHT NURSE FOR CONTINUITY OF CARE. PT IS STABLE. PT IS SITTING IN BED. PT ON 5L NC OXYGEN. PT HAS IDA PICC LINE SALINE LOCK. SKIN INTACT. SAFETY MEASURES IN PLACE, CALL LIGHT WITHIN REACH.
[2020-04-14 08:00] VITALS: BP 146/58
[2020-04-14 08:38] LABS: BASOPHILS % (AUTO) 0.1 % (0.0-2.0); EOSINOPHILS % (AUTO) 0.2 % (0.0-4.0); HEMATOCRIT 28.3 % (36-52); HEMOGLOBIN 9.2 g/dL (12.0-18.0); LYMPHOCYTES # (AUTO) 0.3 K/uL (2.0-11.5); LYMPHOCYTES % (AUTO) 5.1 % (20.5-51.1); MEAN CORPUSCULAR HEMOGLOBIN 28 pg (27-31); MEAN CORPUSCULAR HGB CONC 33 g/dL (33-37); MEAN CORPUSCULAR VOLUME 85.4 fL (80-94); MONOCYTES # (AUTO) 0.3 K/uL (0.8-1.0); MONOCYTES % (AUTO) 4.3 % (1.7-9.3); NEUTROPHILS # (AUTO) 5.7 K/uL (1.8-7.7); NEUTROPHILS % (AUTO) 90.3 % (42.2-75.2); PLATELET COUNT (AUTO) 231 K/uL (140-450); RED BLOOD CELL COUNT(AUTO) 3.32 MIL/uL (4.20-6.10); RED CELL DISTRIBUTION WIDTH 17.1 % (11.6-13.7); WHITE BLOOD COUNT (AUTO) 6.3 K/uL (4.8-10.8)
[2020-04-14 08:53] LABS: ANION GAP 11.1 (8-16); CARBON DIOXIDE 29.4 mmol/L (21-32); CHLORIDE 106 mmol/L (98-107); CREATININE 0.6 mg/dL (0.6-1.3); GLUCOSE 86 mg/dL (74-106); POTASSIUM 4.5 mmol/L (3.5-5.1); SODIUM SERUM 142 mmol/L (136-145); UREA NITROGEN, BLOOD 24 mg/dL (7-18)
[2020-04-14] MEDS: ASCORBIC ACID 500 MG TAB PO SCH (09:46)
[2020-04-14] MEDS: DEXAMETHASONE 4 MG TAB PO SCH (09:47)
[2020-04-14] MEDS: METOPROLOL 50 MG TAB PO SCH ×2 (09:47→21:31)
[2020-04-14] MEDS: VITAMIN D 400 IU TAB PO SCH (09:47)
[2020-04-14] MEDS: ZINC SULF 220 MG CAP PO SCH ×2 (09:47→21:31)
--- NOTE | 2020-04-14 09:55 | NUR ---
ADMINISTERED SCHEDULED MEDICATION, MEDICATION EDUCATION PROVIDED. PT TOLERATED WELL. PT IS STABLE, WILL CONTINUE TO MONITOR.
[2020-04-14] MEDS: hydrALAZINE 10 MG TAB PO SCH ×2 (13:40→18:20)
--- NOTE | 2020-04-14 13:48 | NUR ---
ADMINISTERED SCHEDULED MEDICATION,M EDUCATION EDUCATION PROVIDED. PT TOLERATED WELL. PT IS STABLE, WILL CONTINUE TO MONITOR
[2020-04-14 16:00] VITALS: BP 154/55
--- NOTE | 2020-04-14 16:00 | NUR ---
PT'S FRIEND MICHELLE BLACK- [phone] CALLED REQUESTING AN UPDATE ON PT. STATES HE IS A FRIEND OF PT AND IS TRYING TO REACH PT'S DAUGHTER. INFORMED HIM THE HOSPITAL DOES NOT HAVE A CONTACT NUMBER FOR ANY MEMBER OF PT'S FAMILY AND IF HE COULD PROVIDED US WITH THE NAME AND NUMBER OF ANY FAMILY MEMBER OF THE PT.
--- NOTE | 2020-04-14 18:27 | NUR ---
ADMINISTERED SCHEDULED MEDICATION, MEDICATION EDUCATION PROVIDED. PT TOLERATED WELL .PT IS STABLE, WILL CONTINUE TO MONITOR.
--- NOTE | 2020-04-14 18:33 | NUR ---
NOTIFIED DR THORPE PT PELVIC ULTRASOUND RESULTS, RECEIVED TORB TO INSERT ORELLANA, WILL INPUT ORDER AND CARRY IT OUT.
--- NOTE | 2020-04-14 19:20 | NUR ---
ENDORSE PT TO NIGHT NURSE FOR CONTINUITY OF CARE.
--- NOTE | 2020-04-14 19:20 | NUR ---
RECEIVED PATIENT FROM AM SHIFT NURSE FOR CONTINUITY OF CARE. ALERT, ABLE TO MAKE NEEDS KNOWN. RESPIRATIONS EVEN, UNLABORED. CONTINUES ON O2 5L VIA NC, O2SAT 92%. SKIN WARM, DRY. RIGHT UPPER PICC PATENT/INTACT. PATIENT C/O PAIN. WILL MEDICATE ORDERED. ABDOMEN SOFT, NONTENDER, NONDISTENDED. BOWEL SOUNDS ACTIVE X4 QUADRANTS. PATIENT IS INCONTINENT OF B/B. PLAN OF CARE DISCUSSED. SAFETY PRECAUTIONS IN PLACE. ISOLATION PRECAUTIONS OBSERVED BY ALL STAFF.
[2020-04-14 20:00] VITALS: BP 133/63
--- NOTE | 2020-04-14 21:30 | NUR ---
DUE MEDS GIVEN. PATIENT TURNED AND REPOSITIONED. NO S/S ACUTE DISTRESS. CALL LIGHT WITHIN REACH. ISOLATION PRECAUTIONS OBSERVED BY ALL STAFF. SAFETY PRECAUTIONS IN PLACE.
--- NOTE | 2020-04-14 23:00 | NUR ---
PATIENT TURNED AND REPOSITIONED FOR COMFORT AND TO MAINTAIN SKIN INTEGRITY. NO S/S ACUTE DISTRESS. CALL LIGHT WITHIN REACH. ISOLATION PRECAUTIONS OBSERVED BY ALL STAFF. SAFETY PRECAUTIONS IN PLACE.
[2020-04-15] VITALS (14 sets, daily range): BP systolic 91–142; BP diastolic 44–76
--- NOTE | 2020-04-15 01:16 | NUR ---
RESULTS OF CT ANGIO CHEST WITH CONTRAST REPORTED TO MD. ORDERS RECEIVED AND CARRIED OUT. WILL ENDORSE TO AM SHIFT TO FOLLOW UP WITH PULMO.
--- NOTE | 2020-04-15 03:30 | NUR ---
PATIENT IS SLEEPING WELL. NO S/S ACUTE DISTRESS. CALL LIGHT WITHIN REACH. ISOLATION PRECAUTIONS OBSERVED BY ALL STAFF. SAFETY PRECAUTIONS IN PLACE.
--- NOTE | 2020-04-15 05:05 | NUR ---
PATIENT REFUSED TO TURN AT THIS TIME. RISKS AND BENEFITS EXPLAINED. PATIENT VERBALIZED UNDERSTANDING BUT NEEDS REINFORCEMENT. ALL OTHER NEEDS MET. CALL LIGHT WITHIN REACH. ISOLATION PRECAUTIONS OBSERVED BY ALL STAFF. SAFETY PRECAUTIONS IN PLACE.
--- NOTE | 2020-04-15 07:15 | NUR ---
ENDORSED PATIENT TO AM SHIFT NURSE FOR CONTINUITY OF CARE.
--- NOTE | 2020-04-15 07:25 | NUR ---
RECEIVED REPORT FROM NIGHT NURSE FOR CONTINUITY OF CARE. PT IS STABLE, PT ON 6L NC. PT HAS IDA PICC LINE SALINE LOCK. PT HAS ORELLANA CATH IN PLACE. SKIN INTACT. SAFETY MEASURES IN PLACE, WILL CONTINUE TO MONITOR.
[2020-04-15 08:33] LABS: BASOPHILS % (AUTO) 0.1 % (0.0-2.0); HEMATOCRIT 30.6 % (36-52); HEMOGLOBIN 9.7 g/dL (12.0-18.0); LYMPHOCYTES # (AUTO) 0.3 K/uL (2.0-11.5); LYMPHOCYTES % (AUTO) 3.1 % (20.5-51.1); MEAN CORPUSCULAR HEMOGLOBIN 28 pg (27-31); MEAN CORPUSCULAR HGB CONC 32 g/dL (33-37); MEAN CORPUSCULAR VOLUME 87.3 fL (80-94); MONOCYTES # (AUTO) 0.3 K/uL (0.8-1.0); MONOCYTES % (AUTO) 3.3 % (1.7-9.3); NEUTROPHILS # (AUTO) 8.4 K/uL (1.8-7.7); NEUTROPHILS % (AUTO) 93.5 % (42.2-75.2); PLATELET COUNT (AUTO) 278 K/uL (140-450); RED CELL DISTRIBUTION WIDTH 17.7 % (11.6-13.7); WHITE BLOOD COUNT (AUTO) 8.9 K/uL (4.8-10.8)
--- NOTE | 2020-04-15 08:35 | NUR ---
RECEIVED VERBAL ORDER FROM DR THORPE TO REMOVE GAYLA CATH. ALSO, PER DR THORPE PT DOES NOT NEED CHEST TUBE PNEUMOTHORAX IS SMALL.
[2020-04-15] MEDS: hydrALAZINE 10 MG TAB PO SCH ×3 (09:00→17:00)
[2020-04-15] MEDS: ZINC SULF 220 MG CAP PO SCH ×2 (09:37→21:30)
[2020-04-15] MEDS: ASCORBIC ACID 500 MG TAB PO SCH (09:38)
[2020-04-15] MEDS: METOPROLOL 50 MG TAB PO SCH ×2 (09:38→21:00)
[2020-04-15] MEDS: VITAMIN D 400 IU TAB PO SCH (09:39)
[2020-04-15] MEDS: DEXAMETHASONE 4 MG TAB PO SCH (09:39)
--- NOTE | 2020-04-15 09:49 | NUR ---
ADMINISTERED SCHEDULED MEDICATION, MEDICATION EDUCATION PROVIDED. PT TOLERATED WELL. PT IS STABLE, WILL CONTINUE TO MONITOR.
[2020-04-15 10:35] LABS: CHLORIDE 106 mmol/L (98-107); CREATININE 0.7 mg/dL (0.6-1.3); GLUCOSE 123 mg/dL (74-106); POTASSIUM 4.6 mmol/L (3.5-5.1); SODIUM SERUM 144 mmol/L (136-145); UREA NITROGEN, BLOOD 30 mg/dL (7-18)
--- NOTE | 2020-04-15 10:49 | NUR ---
HAD PREVIOUSLY REMOVED GAYLA CATH PER DR THORPE ORDER. PT TOLERATED REMOVAL WELL. PT ASKED FOR WATER AND GAVE PT WATER. PT STARTED TO SNEEZE AND BREATHING BECAME ERRATIC. CALLED BETI PALOMO WHEN PT STOP BREATHING. STARTED CPR. BETI PALOMO TEAM ARRIVED AND TOOK OVER CARE. SEE BETI PALOMO DOCUMENTATION.
--- NOTE | 2020-04-15 10:49 | NUR ---
[facility] CALLED CPR PT BEING BAGGED WITH BVM AT 100% FIO2 WITH ACLS DRUGS GIVEN AT 1051 ROSC AND AT 1056 PT WAS INTUBATE WITH 7.5 ETT AT 22CM AND PLACED ON VENT WITH SETTINGS AC 20 VT 450 PEEP 5 FIO2 100% AND AT 1103 PT CODED AGAIN AND CPR AND ACLS DRUGS GIVEN AND PT BAGGED AT 1109 ROSC AND PT WAS PLACED BACK ON VENT WITH SAME SETTINGS AT 1126 ETT WAS PLUGGED BACK TO 20CM AND RE TAPED.
--- NOTE | 2020-04-15 10:50 | NUR ---
CALLED TO RESPOND TO [facility]. CPR IN PROGRESS UPON ARRIVAL. CODE TEAM INITIATED ACLS PROTOCOL. SEE CODE SHEET FOR MEDICATIONS AND PROCEDURES.
[2020-04-15] MEDS ORDERED: PROPOFOL 1000 MG/100 ML PREMIX 100 ML IV ONE (10:57)
--- NOTE | 2020-04-15 11:30 | NUR ---
PT REMAINS INTUBATED AND ATTACHED TO CONTINUOUS CARDIAC MONITORING. CRASH CART NEAR BY. VITAL SIGNS FOLLOWS -- 95/50 (65), 100%SPO2, 95 HR WITH NSR. PENDING ICU BED.
--- NOTE | 2020-04-15 11:45 | NUR ---
PT REMAINS INTUBATED AND ATTACHED TO CONTINUOUS CARDIAC MONITORING. CRASH CART NEAR BY. VITAL SIGNS FOLLOWS -- 101/57 (70) 100%SPO2, 86 HR WITH NSR. PENDING ICU BED.
--- NOTE | 2020-04-15 12:00 | NUR ---
NO ACUTE CHANGES IN CONDITION. VS FOLLOWS - 112-68 (69), SPO2 100%, HR 76 WITH NSR ON MONITOR. CRASH CART NEAR BY. STILL PENDING ICU BED.
--- NOTE | 2020-04-15 12:12 | NUR ---
PT TRANSFERRED TO ICU OVERFLOW BED 101A. BEDSIDE REPORT ABOUT [facility] AND PTS CURRENT STATUS GIVEN TO NEIL MARR. NEIL BOWIE TO CALL ICU FOR FULL REPORT ON PATIENT HISTORY, ALLERGIES, MEDICATIONS, ETC.
--- NOTE | 2020-04-15 12:40 | NUR ---
ENDORSE PT TO ICU NURSE FOR CONTINUITY OF CARE.
--- NOTE | 2020-04-15 12:40 | NUR ---
RECEIVED PT FROM SOLDERER PRODUCTION LINE POST BETI PALOMO. PT HAS EYES OPEN BUT IS NON RESPONSIVE TO PAINFUL STIMULI AND LACKS GAG REFLEX. PT HAS PROPOFOL ON STANDBY BUT IT IS NOT RUNNING AT THIS TIME. PT IS ETT TO VENT ACVC PEEP 5, FIO2 100%, VT 450, AND IS CURRENTLY SATURATING AT 100%. OG TUBE IS IN PLACE. PT IS SR AT THIS TIME. IDA PICC IS IN PLACE, WITH NS BOLUS RUNNING AT THIS TIME. SKIN IS INTACT. TEMPERATURE 96.8 AXILLARY. ORELLANA CATHETER IS IN PLACE. HOB IS IN LOW, LOCKED POSITION, WITH HOB AT 30 DEG. WILL CONTINUE TO MONITOR AT THIS TIME.
[2020-04-15 12:52] LABS: ANION GAP 13.1 (8-16); CARBON DIOXIDE 29.5 mmol/L (21-32)
[2020-04-15] MEDS: PROPOFOL 1000 MG/100 ML PREMIX 100 ML IV PRN (14:16)
--- NOTE | 2020-04-15 14:21 | NUR ---
PT NOW BLINKING, MOVING HANDS SLIGHTLY. STARTED PROPOFOL AT 5 MCG/KG/MIN.
--- NOTE | 2020-04-15 17:26 | NUR ---
04/15/20 RD FOLLOW UP COMPLETED PLEASE REFER TO NUTRITION ASSESSMENT UNDER CARE ACTIVITY FOR ESTIMATED NUTRITIONAL NEEDS. 1. RECOMMEND TWO ARLINE HN @ 40 ML/HR. START AT 10, ADVANCE BY 10 Q4H. -THIS WILL PROVIDE 1920 KCAL AND 80 GM OF PROTEIN WHICH MEETS 100% OF ESTIMATED KCAL AND PROTEIN NEEDS 2. RECOMMEND FREE WATER FLUSH OF [address] Q[address] PRN 4. RD TO FOLLOW-UP 2-3 DAYS, HIGH RISK MANFRED SERRATO RD
--- NOTE | 2020-04-15 18:00 | NUR ---
PROPOFOL INCREASED TO 10 MCG/KG/MIN BECAUSE PT AWAKE, MOVING ARMS.
--- NOTE | 2020-04-15 19:05 | NUR ---
SWITCHED PT TO PC 20, DUE TO PT PRESSURES ON THE VENT ELEVATING TO OVER 60 ON MULTIPLE BREATHS. PT IS IN SYNC WITH THE VENT, AND SATURATION IS IN THE HIGH 90S. WILL CONTINUE TO MONITOR
--- NOTE | 2020-04-15 19:20 | NUR ---
RECEIVED CHANGE OF SHIFT REPORT FROM DAYSHIFT RN
--- NOTE | 2020-04-15 19:20 | NUR ---
HANDOFF GIVEN TO RELOCATION DIRECTOR RN FOR CONTINUITY OF CARE
--- NOTE | 2020-04-15 20:00 | NUR ---
PATIENT FOUND RESTING ON LEFT SIDE. PATIENT HAS UNLABORED BREATHING. PATIENT WAS TURNED TO RIGHT SIDE. VITAL SIGNS STABLE. WILL CONTINUE TO MONITOR.
[2020-04-15] MEDS ORDERED: PIPERACILLIN/TAZOBACTAM 3.375 GM VIAL IV ONE (20:47)
[2020-04-15] MEDS: PIPERACILLIN/TAZOBACTAM 3.375 GM in DEXTROSE 5% 50 ML IV SCH (21:29)
--- NOTE | 2020-04-15 22:00 | NUR ---
PATIENT FOUND RESTING ON RIGHT SIDE. PATIENT HAS UNLABORED BREATHING. PATIENT WAS TURNED TO LEFT SIDE. VITAL SIGNS STABLE. WILL CONTINUE TO MONITOR.
[2020-04-16] VITALS (22 sets, daily range): BP systolic 92–156; BP diastolic 38–65
--- NOTE | 2020-04-16 | NUR ---
PATIENT FOUND RESTING ON LEFT SIDE. PATIENT HAS UNLABORED BREATHING. PATIENT WAS TURNED TO RIGHT SIDE. VITAL SIGNS STABLE. WILL CONTINUE TO MONITOR.
--- NOTE | 2020-04-16 02:00 | NUR ---
PATIENT FOUND RESTING ON RIGHT SIDE. PATIENT HAS UNLABORED BREATHING. PATIENT WAS TURNED TO LEFT SIDE. VITAL SIGNS STABLE. WILL CONTINUE TO MONITOR.
--- NOTE | 2020-04-16 03:57 | NUR ---
PATIENT FOUND RESTING ON RIGHT SIDE. PATIENT HAS UNLABORED BREATHING. PATIENT WAS TURNED TO LEFT SIDE. VITAL SIGNS STABLE. WILL CONTINUE TO MONITOR. Addendum: 04/16/20 at 0359 by Daryn Frederick RN RN WRONG TIME
--- NOTE | 2020-04-16 04:00 | NUR ---
PATIENT FOUND RESTING ON LEFT SIDE. PATIENT HAS UNLABORED BREATHING. PATIENT WAS TURNED TO RIGHT SIDE. VITAL SIGNS STABLE. WILL CONTINUE TO MONITOR.
[2020-04-16] MEDS: PIPERACILLIN/TAZOBACTAM 3.375 GM in DEXTROSE 5% 50 ML IV SCH ×3 (04:59→20:55)
--- NOTE | 2020-04-16 06:00 | NUR ---
PATIENT FOUND RESTING ON LEFT SIDE. PATIENT HAS UNLABORED BREATHING. PATIENT HAS EQUAL RISE AND FALL UPON RESPIRATIONS. PATIENT WAS TURNED TO SUPINE POSITION. VITAL SIGNS STABLE. WILL CONTINUE TO MONITOR.
[2020-04-16 06:33] LABS: HEMATOCRIT 25.8 % (36-52); HEMOGLOBIN 8.4 g/dL (12.0-18.0); LYMPHOCYTES # (AUTO) 0.3 K/uL (2.0-11.5); LYMPHOCYTES % (AUTO) 3.6 % (20.5-51.1); MEAN CORPUSCULAR HEMOGLOBIN 28 pg (27-31); MEAN CORPUSCULAR HGB CONC 33 g/dL (33-37); MEAN CORPUSCULAR VOLUME 85.9 fL (80-94); MONOCYTES # (AUTO) 0.4 K/uL (0.8-1.0); MONOCYTES % (AUTO) 4.6 % (1.7-9.3); NEUTROPHILS # (AUTO) 8.2 K/uL (1.8-7.7); NEUTROPHILS % (AUTO) 91.8 % (42.2-75.2); PLATELET COUNT (AUTO) 199 K/uL (140-450); RED CELL DISTRIBUTION WIDTH 17.4 % (11.6-13.7); WHITE BLOOD COUNT (AUTO) 8.9 K/uL (4.8-10.8)
[2020-04-16 07:18] LABS: ALBUMIN 1.9 g/dL (3.4-5.0); ANION GAP 13.7 (8-16); ASPARTATE AMINOTRANSFERASE 59 U/L (15-37); CARBON DIOXIDE 25.8 mmol/L (21-32); CHLORIDE 111 mmol/L (98-107); CREATININE 1.3 mg/dL (0.6-1.3); GLUCOSE 95 mg/dL (74-106); LACTATE DEHYDROGENASE 278 U/L (85-227); MAGNESIUM 1.9 mg/dL (1.8-2.4); PHOSPHORUS 2.7 mg/dL (2.5-4.9); POTASSIUM 3.5 mmol/L (3.5-5.1); SODIUM SERUM 147 mmol/L (136-145); TOTAL BILIRUBIN 0.4 mg/dL (0.0-1.0); UREA NITROGEN, BLOOD 42 mg/dL (7-18)
[2020-04-16] MEDS: PROPOFOL 1000 MG/100 ML PREMIX 100 ML IV PRN (07:25)
--- NOTE | 2020-04-16 07:33 | NUR ---
TRANSFER OF CARE REPORT PROVIDED TO ANN TREJO FOR CONTINUATION OF CARE.
--- NOTE | 2020-04-16 08:00 | NUR ---
RECEIVED REPORT FROM ICU NURSE NURSE. PT IN BED SUPINE, hob elevated, ETT TO VENT AC/PC 100% FIO2, R 20 P 5. FLACC 0, NO SOB. NO SIGNS OF ACUTE DISTRESS NOTED. ORELLANA CATHETER IN PLACE, DRAINING TO GRAVITY. IDA PICC CLEAN DRY INTACT, INFUSING:PROPOFOL 20 MCG/KG/HR. RESIDENT SERVICES MANAGER IN PLACE. SAFETY MEASURES IN PLACE. ISOLATION PRECAUTION IN PLACE. WILL CONTINUE TO MONITOR
[2020-04-16] MEDS: hydrALAZINE 10 MG TAB PO SCH ×3 (09:00→17:47)
[2020-04-16] MEDS: METOPROLOL 50 MG TAB PO SCH ×2 (09:00→21:00)
--- NOTE | 2020-04-16 09:15 | NUR ---
DUE MEDS GIVEN VIA OGT. BP MEDS HELD DUE TO LOW BP. ORAL CARE , ORELLANA CARE DONE. REPOSITIONED PT
[2020-04-16] MEDS: VITAMIN D 400 IU TAB PO SCH (09:52)
[2020-04-16] MEDS: ASCORBIC ACID 500 MG TAB PO SCH (09:52)
[2020-04-16] MEDS: DEXAMETHASONE 4 MG TAB PO SCH (09:52)
[2020-04-16] MEDS: ZINC SULF 220 MG CAP PO SCH ×2 (09:52→20:55)
--- NOTE | 2020-04-16 10:06 | NUR ---
PT. ADMITTED WITH LOW JULES SCALE AT RISK,CONTINUE TO FOLLOW PRESSURE INJURY PREVENTION INTERVENTIONS. -TURN AND REPOSITION PATIENT Q 2H -ASSESS AND MONITOR SKIN CONDITION DURING POSITION CHANGE -OFFLOAD BILATERAL HEELS BY PLACING PILLOWS UNDER CALVES AT ALL TIMES, UNLESS OTHERWISE CONTRAINDICATED -PRESSURE REDISTRIBUTION BY PLACING PILLOWS AND OFFLOADING SACRALCOCCYX -KEEP SKIN CLEAN AND DRY AT ALL TIMES.
--- NOTE | 2020-04-16 11:45 | NUR ---
PT AWAKE RASS-1, INCREASED PROPOFOL TO 30MCG/KG/HR TO KEEP RASS-3
--- NOTE | 2020-04-16 15:15 | NUR ---
SPOKE TO LEMUEL HOLLOWAY TO START PATIENT ON TUBE FEEDING WITH TWO ARLINE HN @ 40 ML/HR.
--- NOTE | 2020-04-16 17:30 | NUR ---
PERICARE DONE, WITH MEDIUM BM. TURNED AND REPOSITIONED
--- NOTE | 2020-04-16 19:30 | NUR ---
GIVEN REPORT FROM CAITLYN TREJO. PATIENT ETT TO VENT, INTUBATED AND SEDATED, RASS -3, VENT SETTINGS PRESSURE AC, FIO2 70%, RR20, PEEP 5. ETT TUBE PATENT, SECURED AND MAINTAINABLE. PER RT, NEED TO READJUST ET TUBE AND CALL FOR ANOTHER CHEST XRAY TO VERIFY PLACEMENT. OG TUBE IN PLACE, SECURED AND PATENT. PATIENT ON CONTINUOUS TELE MONITOR, NORMAL SINUS RHYTHM ON THE MONITOR, WILL CONTINUE TO FREQUENTLY ROUND. IV ACCESS SITES ARE RIGHT UPPER ARM PICC LINE DOUBLE LUMEN. DRIPS RUNNING INCLUDE PROPOFOL AT 30 MCG/KG/MIN AND NS AT 5ML/HR. ORELLANA CATH IN PLACE, SECURED AND PATENT. SKIN NON INTACT, SACRAL WOUND. PATIENT BED LOCKED AND LOWERED IN A POSITION OF SAFETY AND IN POSITION OF COMFORT. PATIENT OFFLOADED FROM PRESSURE POINTS WITH USE OF PILLOWS AND POSITION CHANGES. WILL CONTINUE TO CLOSELY MONITOR AND FREQUENTLY ROUND THROUGHOUT SHIFT. Addendum: 04/17/20 at 0152 by Lavon Chavez RN RN PATIENT DRY WEIGHT 49.8KG.
--- NOTE | 2020-04-16 20:40 | NUR ---
@ TOP OF SHIFT CALLED TO BEDSIDE PT WAS NOT RECEIVING VOL (Vt). ETT + ANCHOR FAST WAS LOOSE AND WAS @23CM. ETT WAS RE-SECURED @ 23CM Vt YOSEF TO 300. PT PULLED ON ETT AND IT WAS RE-ADVANCED TO 23CM. XRAY WAS TAKEN FOR TUBE PLACEMENT (PENDING INTERP). PT NOW RECEIVING VOL OF 350 - 295 W/ SPO2 97% HR IN LOW/MID 80s AT THIS TIME. WILL CONTINUE TO MONITOR
--- NOTE | 2020-04-16 21:00 | NUR ---
RT AND XRAY VERIFICATION SUCCESSFULL. RT READJUSTED ET TUBE PLACEMENT, PATIENT TOLERATING VENT SETTINGS WELL. WILL CONTINUE TO CLOSELY MONITOR AND FREQUENTLY ROUND.
--- NOTE | 2020-04-16 22:00 | NUR ---
VAP ORAL CARE, SUCTIONING, HYGIENE AND REPOSITIONING PROVIDED, PATIENT TOLERATING VENT SETTINGS WELL, WILL CONTINUE TO MONITOR CLOSELY AND ROUND FREQUENTLY.
[2020-04-17] VITALS (27 sets, daily range): BP systolic 99–156; BP diastolic 34–77
--- NOTE | 2020-04-17 01:00 | NUR ---
VAP ORAL CARE, HYGIENE AND REPOSITIONING PROVIDED. PATIENT INTUBATED AND SEDATED, RESTING CALMLY IN BED, WILL CONTINUE TO CLOSELY MONITOR AND FREQUENTLY ROUND.
[2020-04-17] MEDS: PROPOFOL 1000 MG/100 ML PREMIX 100 ML IV PRN ×3 (03:16→23:40)
[2020-04-17] MEDS: PIPERACILLIN/TAZOBACTAM 3.375 GM in DEXTROSE 5% 50 ML IV SCH ×2 (04:16→12:15)
[2020-04-17 06:38] LABS: BASOPHILS % (AUTO) 0.1 % (0.0-2.0); HEMATOCRIT 24.3 % (36-52); HEMOGLOBIN 7.9 g/dL (12.0-18.0); LYMPHOCYTES # (AUTO) 0.3 K/uL (2.0-11.5); LYMPHOCYTES % (AUTO) 4.3 % (20.5-51.1); MEAN CORPUSCULAR HEMOGLOBIN 28 pg (27-31); MEAN CORPUSCULAR HGB CONC 33 g/dL (33-37); MEAN CORPUSCULAR VOLUME 85.4 fL (80-94); MONOCYTES # (AUTO) 0.4 K/uL (0.8-1.0); MONOCYTES % (AUTO) 4.9 % (1.7-9.3); NEUTROPHILS # (AUTO) 7.1 K/uL (1.8-7.7); NEUTROPHILS % (AUTO) 90.7 % (42.2-75.2); PLATELET COUNT (AUTO) 196 K/uL (140-450); RED BLOOD CELL COUNT(AUTO) 2.84 MIL/uL (4.20-6.10); RED CELL DISTRIBUTION WIDTH 17.4 % (11.6-13.7); WHITE BLOOD COUNT (AUTO) 7.8 K/uL (4.8-10.8)
[2020-04-17 07:16] LABS: ALBUMIN 1.9 g/dL (3.4-5.0); ANION GAP 13.7 (8-16); ASPARTATE AMINOTRANSFERASE 44 U/L (15-37); CARBON DIOXIDE 27.8 mmol/L (21-32); CHLORIDE 109 mmol/L (98-107); CREATININE 1.3 mg/dL (0.6-1.3); GLUCOSE 103 mg/dL (74-106); LACTATE DEHYDROGENASE 289 U/L (85-227); MAGNESIUM 2.5 mg/dL (1.8-2.4); POTASSIUM 3.5 mmol/L (3.5-5.1); SODIUM SERUM 147 mmol/L (136-145); TOTAL BILIRUBIN 0.4 mg/dL (0.0-1.0); UREA NITROGEN, BLOOD 49 mg/dL (7-18)
--- NOTE | 2020-04-17 07:40 | NUR ---
RECEIVED REPORT FROM MACHINE HEDDLE CLEANER NURSE. PATIENT IN CRITICAL CONDITION. WILL CONTINUE TO MONITOR.
[2020-04-17] MEDS: hydrALAZINE 10 MG TAB PO SCH ×3 (09:00→16:29)
[2020-04-17] MEDS: METOPROLOL 50 MG TAB PO SCH ×2 (09:00→20:43)
[2020-04-17] MEDS: DEXAMETHASONE 4 MG TAB PO SCH (09:15)
[2020-04-17] MEDS: ZINC SULF 220 MG CAP PO SCH ×2 (09:15→20:48)
[2020-04-17] MEDS: VITAMIN D 400 IU TAB PO SCH (09:15)
[2020-04-17] MEDS: ASCORBIC ACID 500 MG TAB PO SCH (09:15)
--- NOTE | 2020-04-17 09:16 | NUR ---
SCHEDULED MEDICATIONS DUE GIVEN. WILL CONTINUE TO MONITOR.
[2020-04-17] MEDS ORDERED: CRUSHER, PILL MC ONE (09:24)
--- NOTE | 2020-04-17 12:16 | NUR ---
REPOSITIONED PATIENT. SCHEDULED MEDICATIONS DUE GIVEN. WILL CONTINUE TO MONITOR.
--- NOTE | 2020-04-17 15:00 | NUR ---
REPOSITIONED PATIENT. CONDITION UNCHANGED. WILL CONTINUE TO MONITOR.
--- NOTE | 2020-04-17 19:30 | NUR ---
DAYSLESLY RN TRANSFERRED CARE AND GAVE REPORT.
--- NOTE | 2020-04-17 19:43 | NUR ---
GAVE REPORT TO LIVING SKILLS ADVISOR NURSE FOR CONTINUITY OF CARE. PATIENT IN STABLE CONDITION.
--- NOTE | 2020-04-17 21:00 | NUR ---
VAP ORAL CARE, HYGIENE, REPOSITIONING AND COMFORT MEASURES PROVIDED. PATIENT TOLERATING SEDATION AND VENT SETTINGS WELL. WILL CONTINUE TO CLOSELY MONITOR AND FREQUENTLY ROUND.
--- NOTE | 2020-04-17 22:52 | NUR ---
REPORT RECEIVED FROM CAITLYN TREJO. HOB AT 30 DEGREES. PATIENT ETT TO VENT, VENT SETTINGS AC/PC, FIO2 60%, RR 20, PEEP 5, PATIENT TOLERATING VENT SETTINGS WELL. OG TUBE SECURED, PATENT AND IN PLACE. TUBE FEEDING RUNNING AT 40 ML/HR, FREE WATER FLUSH 170 Q6. PATIENT ON CONTINUOUS TELE MONITORING, NORMAL SINUS RHYTHM, WILL CONTINUE TO FREQUENTLY/CLOSELY MONITOR. ORELLANA CATH SECURED, PATENT AND IN PLACE. PATIENT IV ACCESS AT RIGHT UPPER ARM PICC LINE DOUBLE LUMEN. IV DRIPS ACTIVELY RUNNING INCLUDE PROPOFOL AT 25 MCG/KG/MIN AND NS AT 5 TKO. DRY WEIGHT OF PATIENT IS 49.8 KG. PATIENT OFFLOADED FROM PRESSURE POINTS WITH US OF PILLOWS AND FREQUENT REPOSITIONING. PATIENT IN A POSITION OF COMFORT. BED LOWERED AND LOCKED FOR SAFETY. WILL CONTINUE TO FREQUENTLY ROUND AND CLOSELY MONITOR THROUGHOUT THE SHIFT. Addendum: 04/18/20 at 0225 by Lavon Chavez RN [place] [id number]
[2020-04-18] VITALS (25 sets, daily range): BP systolic 72–136; BP diastolic 38–68
--- NOTE | 2020-04-18 01:00 | NUR ---
PATIENT RESTING COMFORTABLY IN THE BED, INTUBATED AND SEDATED, TOLERATING VENT SETTINGS WELL. NORMAL SINUS ON THE MONITOR. VAP ORAL CARE, SUCTIONING AND HYGIENE PROVIDED. WILL CONTINUE TO CLOSELY MONITOR AND FREQUENTLY ROUND.
--- NOTE | 2020-04-18 04:00 | NUR ---
PATIENT RESTING COMFORTABLY, TOLERATING VENT SETTINGS WELL. NORMAL SINUS ON THE MONITOR. WILL CONTINUE TO FREQUENTLY ROUND AND CLOSELY MONITOR.
--- NOTE | 2020-04-18 05:00 | NUR ---
VAP ORAL CARE, SUCTIONING AND HYGIENE PROVIDED. RESTING CONTENT IN THE BED. TOLERATING VENT SETTINGS WELL, WILL CONTINUE TO CLOSELY MONITOR.
[2020-04-18 05:48] LABS: BASOPHILS % (AUTO) 0.3 % (0.0-2.0); EOSINOPHILS % (AUTO) 0.3 % (0.0-4.0); HEMATOCRIT 27.4 % (36-52); HEMOGLOBIN 8.7 g/dL (12.0-18.0); LYMPHOCYTES # (AUTO) 0.2 K/uL (2.0-11.5); LYMPHOCYTES % (AUTO) 3.2 % (20.5-51.1); MEAN CORPUSCULAR HEMOGLOBIN 27 pg (27-31); MEAN CORPUSCULAR HGB CONC 32 g/dL (33-37); MEAN CORPUSCULAR VOLUME 85.7 fL (80-94); MONOCYTES # (AUTO) 0.2 K/uL (0.8-1.0); MONOCYTES % (AUTO) 3.6 % (1.7-9.3); NEUTROPHILS # (AUTO) 5.7 K/uL (1.8-7.7); NEUTROPHILS % (AUTO) 92.6 % (42.2-75.2); PLATELET COUNT (AUTO) 168 K/uL (140-450); RED CELL DISTRIBUTION WIDTH 17.2 % (11.6-13.7); WHITE BLOOD COUNT (AUTO) 6.2 K/uL (4.8-10.8)
--- NOTE | 2020-04-18 07:15 | NUR ---
RECEIVED PT FROM NEIL HUANG MALNOURISHED.ORALLY INTUBATED TO VENTILATOR. O2 SAT-97-99 BREATH/MIN.W/ PATENT CONTRAPTIONS. ON PROPOFOL DRIP.RESTING COMFORTABLY ON BED NO FACIAL GRIMACES,ORAL CARE RENDERED AND SUCTIONED SECRETIONS
[2020-04-18 07:31] LABS: ANION GAP 10.2 (8-16); CARBON DIOXIDE 30.4 mmol/L (21-32); CHLORIDE 110 mmol/L (98-107); CREATININE 1.1 mg/dL (0.6-1.3); GLUCOSE 153 mg/dL (74-106); POTASSIUM 3.6 mmol/L (3.5-5.1); SODIUM SERUM 147 mmol/L (136-145); UREA NITROGEN, BLOOD 43 mg/dL (7-18)
[2020-04-18] MEDS: VITAMIN D 400 IU TAB PO SCH (08:53)
[2020-04-18] MEDS: DEXAMETHASONE 4 MG TAB PO SCH (08:54)
[2020-04-18] MEDS: METOPROLOL 50 MG TAB PO SCH ×2 (08:54→21:00)
[2020-04-18] MEDS: ASCORBIC ACID 500 MG TAB PO SCH (08:55)
[2020-04-18] MEDS: HYDROcodone/APAP 5/325 MG 1 TAB TAB PO PRN (08:56)
--- NOTE | 2020-04-18 09:30 | NUR ---
VISITED AND EXAMINED BY UPDATED TO PT'S CONDITION NO FURTHER ORDER MADE.ABLE TO FOLLOW SIMPLE COMMAND.
[2020-04-18] MEDS: hydrALAZINE 10 MG TAB PO SCH ×2 (09:45→13:00)
[2020-04-18] MEDS: ZINC SULF 220 MG CAP PO SCH ×2 (09:45→21:33)
[2020-04-18] MEDS: PROPOFOL 1000 MG/100 ML PREMIX 100 ML IV PRN ×2 (10:50→21:31)
--- NOTE | 2020-04-18 11:10 | NUR ---
SKIN ASSESSMENT DONE WITH PRIMARY RN. PT. WITH SEVERE MAD TO MARLEEN-ANAL AND RIGHT /LEFT LOWER BUTTOCKS, MULTIPLE SKIN EROSIONS, AREA MOIST, NO ODOR. SACRALCOCCYX SKIN INTACT, BLANCHABLE REDNESS, PT IS BONY WITH LOW BMI. POC DISCUSSED WITH PRIMARY RN. RECOMMENDATIONS: -APPLY FOAM DRESSING TO ALL BONY PROMINENCES, CHANGE Q3 DAYS AND PRN IF SOILING -APPLY Z-GUARD TO MARLEEN-ANAL AND R/L LOWER BUTTOCKS BID AND PRN IF SOILING -CONTINUE ALL PI PREVENTION INTERVENTIONS
[2020-04-18] MEDS ORDERED: Z-GUARD PASTE TP SCH (13:00)
[2020-04-18] MEDS ORDERED: FOAM DRESSING TP SCH (13:00)
--- NOTE | 2020-04-18 15:00 | NUR ---
HAD SMALL BM SOFT YELLOW STOOL.PM CARE RENDERED ORAL CARE DONE AND MAINTAINED ON 30 DEGREES HOB TO FACILITATE EASY BREATHING AND PREVENT ASPIRATION.
--- NOTE | 2020-04-18 17:08 | NUR ---
04/18/20 RD FOLLOW UP COMPLETED PLEASE REFER TO NUTRITION ASSESSMENT UNDER CARE ACTIVITY FOR ESTIMATED NUTRITIONAL NEEDS. 1. CONT. TWO ARLINE HN @ 40 ML/HR -THIS WILL PROVIDE 960 ML OF VOLUME, 1920 KCAL AND 80 GM OF PROTEIN WHICH MEETS 100% OF ESTIMATED KCAL AND PROTEIN NEEDS 2. CONT. FREE WATER FLUSH OF 170 ML Q4H 3[address] CON[address] PRN 4. RD TO FOLLOW-UP 2-3 DAYS, HIGH RISK MANFRED SERRATO RD
--- NOTE | 2020-04-18 19:00 | NUR ---
ALL NEEDS ATTENDED AND MET DURING THE SHIFT. PT CALMED AND RESTING COMFORTABLY ON BED.MAINTAINED ON 30 DEGREES HOB TO FACILITATE EASY BREATHING AND PREVENT ASPIRATION.CONDITION STATUS QUO . ENDORSED TO DEANGELO FOR CONTINUITY OF CARE
[2020-04-18] MEDS ORDERED: NACL 0.9% 1,000 ML IV SCH (19:19)
[2020-04-18] MEDS ORDERED: NOREPINEPHRINE 16 MG in DEXTROSE 5% 250 ML IV PRN (19:20)
[2020-04-18] MEDS ORDERED: DILTIAZEM 25 MG/5 ML VIAL IVP SCH (19:20)
[2020-04-18] MEDS ORDERED: NOREPINEPHRINE 4 MG/4 ML VIAL IV ONE (19:25)
[2020-04-19] VITALS (11 sets, daily range): BP systolic 105–126; BP diastolic 43–57
[2020-04-19 06:18] LABS: BASOPHILS % (AUTO) 0.2 % (0.0-2.0); HEMATOCRIT 27.5 % (36-52); HEMOGLOBIN 8.1 g/dL (12.0-18.0); LYMPHOCYTES # (AUTO) 0.3 K/uL (2.0-11.5); MEAN CORPUSCULAR HEMOGLOBIN 28 pg (27-31); MEAN CORPUSCULAR HGB CONC 30 g/dL (33-37); MEAN CORPUSCULAR VOLUME 93.7 fL (80-94); MONOCYTES # (AUTO) 0.5 K/uL (0.8-1.0); NEUTROPHILS # (AUTO) 8.7 K/uL (1.8-7.7); NEUTROPHILS % (AUTO) 91.8 % (42.2-75.2); PLATELET COUNT (AUTO) 249 K/uL (140-450); RED BLOOD CELL COUNT(AUTO) 2.93 MIL/uL (4.20-6.10); RED CELL DISTRIBUTION WIDTH 18.6 % (11.6-13.7); WHITE BLOOD COUNT (AUTO) 9.4 K/uL (4.8-10.8)
[2020-04-19 06:37] LABS: ANION GAP 12.5 (8-16); CARBON DIOXIDE 28.4 mmol/L (21-32); CHLORIDE 112 mmol/L (98-107); CREATININE 1.4 mg/dL (0.6-1.3); GLUCOSE 309 mg/dL (74-106); POTASSIUM 4.9 mmol/L (3.5-5.1); SODIUM SERUM 148 mmol/L (136-145); UREA NITROGEN, BLOOD 48 mg/dL (7-18)
--- NOTE | 2020-04-19 07:15 | NUR ---
RECEIVED PT FROM [employer]S TECHNOLOGY DEVELOPMENT MANAGER NEIL BRIGHT. PT ON PROPOFOL AND LEVOPHED DRIP.ORALLY INTUBATED AND ON VENTILATOR.W/ PATENT CONTRAPTIONS.
--- NOTE | 2020-04-19 07:45 | NUR ---
SEEN AND EXAMINES BY DR. GUADALUPE UPDATED TO PT'S CONDITION W/ ORDER NOTED AND CARRIED OUT. PATENCY OF THE OGT CHECKED AND RESIDUAL COFFEE GROUND MATERIAL AND ABOVE DOOR CLAMP OPERATOR AWARE AND HEPARIN HOLD.
--- NOTE | 2020-04-19 07:45 | NUR ---
RECEIVED INTUBATED PT WITH A 7.5 ETT SECURED @23 TEETH/GUM ON VENT. SETTINGS PC Pinsp 20, R20, PEEP 5 AND FIO2 40%. PT DESATURATING TO 86% AND INADEQUATE Vt DELIVERED. SETTINGS ADJUSTED: PC Pinsp 26, R20, PEEP 5 AND FIO2 INCREASED TO 50%. VENT ALARMS ON AND FUNCTIONING. PT SUCTIONED OBTAINED SMALL AMOUNT OF THICK WHITE SECRETIONS, NO GAG REFLEX NOTED, WILL NOTIFY NURSE. WILL CONTINUE TO MONITOR.
--- NOTE | 2020-04-19 07:58 | NUR ---
VENT SETTINGS CHANGES EXPLAINED TO .
[2020-04-19] MEDS: ZINC SULF 220 MG CAP PO SCH (08:30)
[2020-04-19] MEDS: ASCORBIC ACID 500 MG TAB PO SCH (08:30)
[2020-04-19] MEDS: DEXAMETHASONE 4 MG TAB PO SCH (08:30)
--- NOTE | 2020-04-19 08:30 | NUR ---
AM MEDS GIVEN.MAINTAINED ON 30 DEGREES HOB TO FACILITATE EASY BREATHING AND PREVENT ASPIRATION..0845. SUDDENLY PT WENT INTO ASYSTOLE,CODE BLUE ACTIVATED AND ER DOCTOR CAME IN AND LEAD THE CODE.EXTERNAL CHEST COMPRESSION STARTED AND ACL'S MED GIVEN.HAD A PULSE @ 0950.
--- NOTE | 2020-04-19 08:55 | NUR ---
PT'S RYTHMN WENT INTI VENTRICULAR FIBRILLATION CODE BLUE ALERTED AND ACL;S TEAM ON LEAD.STILL NO PULSE AND NO BP, PRONOUNCED CLINICALLY BY JACKLYN HOUSTON @ 3686. POST MORTEM CARE DONE.TRYING TO GET INFORMATION TO A FRIEND BUT NO A VAILABLE PHONE NUMBER THAT WE CAN REACH PT'S DAUGHTER.
[2020-04-19] MEDS: METOPROLOL 50 MG TAB PO SCH (09:00)
[2020-04-19] MEDS ORDERED: EPINEPHrine PFS 0.1 MG/ML SYR IVP ONE ×2 (09:15→09:16)
[2020-04-19] MEDS: VITAMIN D 400 IU TAB PO SCH (09:40)
--- NOTE | 2020-04-19 10:17 | NUR ---
PHONE CALL MADE TO PCAT INSTRUCTOR'S OFFICE, NOTIFIED OF OF PT, PCAT INSTRUCTOR WILL CALL BACK FOR REPORT PER ADRIANA.
--- NOTE | 2020-04-19 12:09 | NUR ---
CALLED PT'S NIECE ELENI CALLE, , SHE CONFIRMS THAT SHE IS THE CLOSEST RELATIVE OF THIS PATIENT, PT HAS NO OTHER FAMILY MEMBERS, SHE DENIES ANY KNOWLEDGE OF PATIENT MAKING ANY MORTUARY OR HOME ARRANGEMENTS PRIOR TO HIS , SHE WAS ASKED TO MAKE HOME ARRANGEMENTS FOR HER UNCLE, BUT STATES SHE IS FINANCIALLY UNABLE TO DO SO. SHE DOES NOT WANT ANY OF PT'S BELONGINGS RETURNED TO HER.
--- NOTE | 2020-04-19 12:25 | NUR ---
TOE TAG PLACED WITH CORRECT NAME LABEL, PT PLACED IN DOUBLE BAG, TAKEN TO [employer] TRUCK BY SECURITY, PERSONAL BELONGINGS BAGGED AND LABELED AND SENT TO SECURITY.
--- NOTE | 2020-04-19 13:35 | NUR ---
CALLED [facility] AT [phone], REGARDING RETURNING PT'S OXYGEN MACHINE, NO ANSWER, VOICE MAIL BOX FULL, UNABLE TO LEAVE MESSAGE, WILL TRY AGAIN. MACHINE REMAINS IN ICU WITH PT'S NAME.
--- NOTE | 2020-04-21 15:00 | NUR ---
[facility] CAME TO BUSINESS CONTROL SPECIALIST O2 MACHINE AND O2 TANK
== END 2020-04-19 09:18 | DRG 720 ==
LOC: EDBD 15:15 → MED 15:15 → MTU 16:52 → EDBD 16:52 → MTU 03-21 06:17 → MMU 04-15 12:30 → MIC 04-17 19:20
PROVIDERS: ADMIT Family Medicine; ATTEND Family Medicine
PROC: 5A09357 Assistance with Respiratory Ventilation, Less than 24 Consecutive Hours, Continuous Positive Airway Pressure (ICD-10-PCS; 2020-03-20)
PROC: 5A1D70Z Performance of Urinary Filtration, Intermittent, Less than 6 Hours Per Day (ICD-10-PCS; 2020-03-28)
PROC: 02HV33Z Insertion of Infusion Device into Superior Vena Cava, Percutaneous Approach (ICD-10-PCS; 2020-03-29)
PROC: B548ZZA Ultrasonography of Superior Vena Cava, Guidance (ICD-10-PCS; 2020-03-29)
PROC: 5A1945Z Respiratory Ventilation, 24-96 Consecutive Hours (ICD-10-PCS; principal; 2020-04-15)
PROC: 0BH17EZ Insertion of Endotracheal Airway into Trachea, Via Natural or Artificial Opening (ICD-10-PCS; 2020-04-15)
DX: A41.9 Sepsis, unspecified organism (principal); J96.01 Acute respiratory failure with hypoxia; M19.90 Unspecified osteoarthritis, unspecified site; U07.1 COVID-19; J15.9 Unspecified bacterial pneumonia; J12.82 Pneumonia due to coronavirus disease 2019; J69.0 Pneumonitis due to inhalation of food and vomit; E43 Unspecified severe protein-calorie malnutrition; Z68.1 Body mass index [BMI] 19.9 or less, adult; G20 Parkinson's disease; D68.59 Other primary thrombophilia; I16.1 Hypertensive emergency; I10 Essential (primary) hypertension; N17.0 Acute kidney failure with tubular necrosis; R33.9 Retention of urine, unspecified; I05.0 Rheumatic mitral stenosis; N31.2 Flaccid neuropathic bladder, not elsewhere classified; E87.0 Hyperosmolality and hypernatremia; E87.5 Hyperkalemia; E83.39 Other disorders of phosphorus metabolism; E83.41 Hypermagnesemia; E86.0 Dehydration; J44.1 Chronic obstructive pulmonary disease with (acute) exacerbation; J44.0 Chronic obstructive pulmonary disease with (acute) lower respiratory infection; E11.9 Type 2 diabetes mellitus without complications; D64.9 Anemia, unspecified; J93.9 Pneumothorax, unspecified
CPT/HCPCS: 36415; 36600; 71045; 71275; 76770; 76856; 80048; 80053; 80305; 81001; 82150; 82550; 82728; 82803; 82948; 83036; 83605; 83615; 83690; 83735; 83880; 84100; 84439; 84443; 84484; 85025; 85379; 85384; 85610; 85651; 85730; 86140; 87040; 87081; 87086; 87420; 87804; 92950; 93005; 94002; 94003; 96365; 96375; 97110; 97112; 97116; 97161-GP; 97530; 99291; C1758; J0171; J0360; J0456; J0696; J1100; J1644; J1650; J2001; J2060; J2543; J2704; J3475; J3490; J7030; J7060; Q9967; U0003